=== PATIENT | female | born 2000 | race Caucasian/White ===

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

== ENCOUNTER 2018-01-20 18:43 | Emergency (ER) | payer SELFPAY ==
[~2018-01-20] VITALS: Ht 167.6 cm; Wt 93.9 kg
[~2018-01-20 18:43] MED LIST changes: +HYDR-4226 PO; -HYDR-757 PO; +INSU100I10 SQ; +INSU100I14 SQ; +NAPR-915 PO; -NAPR500T3 PO
--- OUTSIDE RECORDS SUMMARY | 2018-01-20 18:48 | XMS REPORT ---
Author Author LEANDRA CALVIN Organization [facility] Address [address] [place] [address] Care Team Providers Care Secondary Teacher Name Role Phone CALVIN MOBLEY Unavailable PROBLEMS Type Condition ICD9-CM Code [id number] Code Onset Dates Condition Status SNOMED Code Problem Attention deficit disorder F90.0 Active 978045801 Problem Mood disorder F39 Active 26546966 Problem Depressive disorder, not elsewhere classified F32.9 Active 01429841 Problem Dysthymic disorder F34.1 Active 20833407 Problem Anxiety disorder, unspecified F41.9 Active 522024315 Problem Social phobia F40.10 Active 97561152 Problem Other and unspecified noninfectious gastroenteritis and colitis 558.9 Active 60139126 ALLERGIES No Information ENCOUNTERS Encounter Location Date Diagnosis [facility] [address] [address] Oct, [facility] [address] [address] Oct, [facility] [address] [address] 20 Oct, 2017 Cystitis N30.90 and Dysuria R30.0 [facility] [id number] [place] [address] [id number] 15 Oct, 2017 Dental examination Z01.20 [facility] [address] [address] 15 May, 2017 Fever, unspecified fever cause R50.9 and Acute nasopharyngitis J00 [facility] [address] [address] Dec, Mood disorder F39 [facility] [address] [address] Dec, Mood disorder F39 [facility] [address] [address] Jul, Depressive disorder, not elsewhere classified F32.9 and Social phobia F40.10 [facility] [address] [id number] [id number] Jul, Encounter for dental examination Z01.20 [facility] [id number] [place] [address] [id number]- [address] Jan, Depressive disorder, not elsewhere classified 311 ; Anxiety state, unspecified 300.00 and Attention deficit disorder without mention of hyperactivity 314.00 [facility] [id number] [place] [address]019- [address] Jan, Depressive disorder, not elsewhere classified 311 ; Anxiety state, unspecified 300.00 and Attention deficit disorder without mention of hyperactivity 314.00 [facility] [address] [place] [address] Oct, Depressive disorder, not elsewhere classified 311 [facility] [id number] [place] [address] [phone]- 2[address] September, Depressive disorder, not elsewhere classified 311 [facility] [id number] [place] [address] 730583- [address] Aug, [facility] [address] [address] Aug, [facility] [address] [place] [address] [id number]- 1105 Aug, [facility] [address] [place] [address] [id number]- 7660 Jul, [facility] [id number] [place] [address] 816980- 8391 Jul, [facility] [address] [address] Jun, [facility] [address] [id number] [place] [address] Jun, [facility] [address] [id number] [place] [address] Apr, [facility] [place] [facility] [address] [id number] [place] [address]- [address] Apr, [facility] [address] [id number] [place] [address]- [address] Mar, [facility] [place] [facility] [address] [id number] [place] [address] Mar, [facility] [address] [id number] [place] [address] Feb, [facility] [place] [facility] [address] [id number] [place] [address]- [address] Feb, [facility] [place] [facility] [address] [id number] [place] [address] Dec, [facility] [place] [facility] [address] [id number] [place] [address] 8[address] Dec, [facility] [place] [facility] [address] [id number] [place] [address]- 1337 Nov, [facility] [address] [id number] [place] [address]- 378[address] Nov, [facility] [place] [facility] [address] [id number] [place] [address]- 1428 September, [facility] [place] [facility] [address] [id number] [place] [address] 76[address] September, [facility] [place] [facility] [address] [id number] [place] [address]- 9[address] Aug, [facility] [place] [facility] [address] [id number] [place] [address]- 7[address] Apr, [facility] [place] [facility] [address] [id number] [place] [address] Apr, [facility] [address] [facility] [id number] [place] [address] Apr, IMMUNIZATIONS No Known Immunizations SOCIAL HISTORY Never Assessed REASON FOR VISIT PLAN OF CARE VITAL SIGNS MEDICATIONS Unknown Medications RESULTS No Results PROCEDURES No Known procedures INSTRUCTIONS MEDICATIONS ADMINISTERED No Known Medications MEDICAL (GENERAL) HISTORY Type Description Date Medical History Diabetes-II Surgical History Tonsils removed 2002 Surgical History Blood infection 2011
--- OUTSIDE RECORDS SUMMARY | 2018-01-20 18:48 | XMS REPORT ---
Author Author GARRETT GARCIA [facility] Address Unknown Care Team Providers Care Shoe Clerk Name Role Phone GARRETT GARCIA Unavailable PROBLEMS Type Condition ICD9-CM Code YKY44-AN Code Onset Dates Condition Status SNOMED Code Problem Attention deficit disorder F90.0 Active 207540988 Problem Mood disorder F39 Active 34449430 Problem Depressive disorder, not elsewhere classified F32.9 Active 18723968 Problem Dysthymic disorder F34.1 Active 93440672 Problem Anxiety disorder, unspecified F41.9 Active 269583109 Problem Social phobia F40.10 Active 69684115 Problem Other and unspecified noninfectious gastroenteritis and colitis 558.9 Active 91885061 ALLERGIES Substance Reaction Event Type Date Status Rocephin Unknown Drug Allergy Oct, Active ENCOUNTERS Encounter Location Date Diagnosis [facility] [id number] [place] [address] Oct, [facility] [address] [address] Oct, [facility] [id number] [place] [address] Oct, Cystitis N30.90 and Dysuria R30.0 [facility] [id number] [place] [address] [id number] Oct, Dental examination Z01.20 [facility] [id number] [place] [address] May, Fever, unspecified fever cause R50.9 and Acute nasopharyngitis J00 [facility] [id number] [place] [address] Dec, Mood disorder F39 [facility] [address] [id number]- [address] Dec, Mood disorder F39 [facility] [address] [address] Jul, Depressive disorder, not elsewhere classified F32.9 and Social phobia F40.10 [facility] [id number] [id number] Jul, Encounter for dental examination Z01.20 [facility] [address] [place] [address] 219248- [address] Jan, Depressive disorder, not elsewhere classified 311 ; Anxiety state, unspecified 300.00 and Attention deficit disorder without mention of hyperactivity 314.00 [facility] [address] [place] [address] 845441- 73[address] Jan, Depressive disorder, not elsewhere classified 311 ; Anxiety state, unspecified 300.00 and Attention deficit disorder without mention of hyperactivity 314.00 [facility] [address] [place] [address] Oct, Depressive disorder, not elsewhere classified 311 [facility] [address] [place] [address] September, Depressive disorder, not elsewhere classified 311 [facility] [address] [address] Aug, [facility] [address] [address] Aug, [facility] [address] [address] Aug, [facility] [address] [address] Jul, [facility] [address] [place] [address] 501804- 2746 Jul, [facility] [address] [address] Jun, [facility] [address] [facility] [id number] [place] [address]- 4[address] Jun, [facility] [place] [facility] [address] [id number] [place] [address]- 4237 Apr, [facility] [place] [facility] [address] [id number] [place] [address]- 6[address] Apr, [facility] [place] [facility] [address] [id number] [place] [address]- 2507 Mar, [facility] [place] [facility] [address] [id number] [place] [address]- 9330 Mar, [facility] [place] [facility] [address] [id number] [place] [address]- 6527 Feb, [facility] [place] [facility] [address] [id number] [place] [address]- 9572 Feb, [facility] [place] [facility] [address] [id number] [place] [address]- 3195 Dec, [facility] [place] [facility] [address] [id number] [place] [address]- [address] Dec, [facility] [place] [facility] [address] [id number] [place] [address]- 3924 Nov, [facility] [place] [facility] [address] [id number] [place] [address] Nov, [facility] [place] [facility] [address] [id number] [place] [address]- 2440 September, [facility] [place] [facility] [address] [id number] [place] [address]- 7984 September, [facility] [place] [facility] [address] [id number] [place] [address]- 53[address] Aug, [facility] [place] [facility] [address] [id number] [place] [address]- 2546 Apr, [facility] [place] [facility] [address] [id number] [place] [address]- 2716 Apr, [facility] [address] [facility] [id number] [place] [address]- 0[address] Apr, IMMUNIZATIONS No Known Immunizations SOCIAL HISTORY Never Assessed REASON FOR VISIT jemma PLAN OF CARE Activity Details Follow Up prn Reason:KRISTIN wit hyg VITAL SIGNS Blood pressure systolic 122 mmHg 2017-11-02 Blood pressure diastolic 70 mmHg 2017-11-02 MEDICATIONS Medication Instructions Dosage Frequency Start Date End Date Duration Status Clindamycin HCl 150 MG Orally every 6 hrs 2 capsules 6h 7 days Active NovoLog Not-Taking Invokana by oral route Jul, Not-Taking Lantus Not-Taking Zofran ODT 8 mg 1 tablet by Oral route every 8 hours PRN nausea or vomiting Jul, Not-Taking Bentyl 10 mg 1 Capsule by Oral route 2 times per day PRN for tomach cramping Jul, Not-Taking Kombiglyze XR by oral route Jul, Not-Taking RESULTS No Results PROCEDURES Procedure Date Ordered Result Body Site LTD ORAL EVALUATION - PROBLEM FOCUS November 02, 2017 INTRAORL-PERIAPICAL 1 FILM [id number] November 02, 2017 BITEWING - SINGLE FILM November 02, 2017 INSTRUCTIONS MEDICATIONS ADMINISTERED No Known Medications MEDICAL (GENERAL) HISTORY Type Description Date Medical History Diabetes-II Surgical History Tonsils removed 2002 Surgical History Blood infection 2010
--- OUTSIDE RECORDS SUMMARY | 2018-01-20 18:49 | XMS REPORT ---
Author Author LEANDRA CALVIN Organization [facility] Address [address] [place] [address] Care Team Providers Care Peoplesoft Functional Analyst Name Role Phone CALVIN MOBLEY Unavailable PROBLEMS Type Condition ICD9-CM Code MEC60-GF Code Onset Dates Condition Status SNOMED Code Problem Attention deficit disorder F90.0 Active 793448414 Problem Mood disorder F39 Active 82370265 Problem Depressive disorder, not elsewhere classified F32.9 Active 61317792 Problem Dysthymic disorder F34.1 Active 70309142 Problem Anxiety disorder, unspecified F41.9 Active 107814292 Problem Social phobia F40.10 Active 56104182 Problem Other and unspecified noninfectious gastroenteritis and colitis 558.9 Active 41788444 ALLERGIES No Information ENCOUNTERS Encounter Location Date Diagnosis [facility] [address] [address] Oct, [facility] [address] [address] Oct, [facility] [address] [address] 20 Oct, 2017 Cystitis N30.90 and Dysuria R30.0 [facility] [id number] [place] [address] [id number] 15 Oct, 2017 Dental examination Z01.20 [facility] [address] [address] 15 May, 2017 Fever, unspecified fever cause R50.9 and Acute nasopharyngitis J00 [facility] [address] [address] Dec, Mood disorder F39 [facility] [address] [address] Dec, Mood disorder F39 [facility] [address] [address] Jul, Depressive disorder, not elsewhere classified F32.9 and Social phobia F40.10 [facility] [id number] [id number] Jul, Encounter for dental examination Z01.20 [facility] [id number] [place] [address] [id number]- [address] Jan, Depressive disorder, not elsewhere classified 311 ; Anxiety state, unspecified 300.00 and Attention deficit disorder without mention of hyperactivity 314.00 [facility] [id number] [place] [address] 822119- 8453 Jan, Depressive disorder, not elsewhere classified 311 ; Anxiety state, unspecified 300.00 and Attention deficit disorder without mention of hyperactivity 314.00 [facility] [address] [place] [address]- [address] Oct, Depressive disorder, not elsewhere classified 311 [facility] [id number] [place] [address] [id number]- 6322 September, Depressive disorder, not elsewhere classified 311 [facility] [id number] [place] [address] 439193- 97[address] Aug, [facility] [address] [address] Aug, [facility] [address] [place] [address] [id number]- 6614 Aug, [facility] [address] [place] [address] [id number]- 5503 Jul, [facility] [id number] [place] [address] 298595- 5063 Jul, [facility] [address] [address] Jun, [facility] [address] [id number] [place] [address]- [address] Jun, [facility] [address] [id number] [place] [address]- 2230 Apr, [facility] [place] [facility] [address] [id number] [place] [address]- 6997 Apr, [facility] [address] [id number] [place] [address]- 0421 Mar, [facility] [place] [facility] [address] [id number] [place] [address]- 8299 Mar, [facility] [address] [id number] [place] [address]- 0184 Feb, [facility] [place] [facility] [address] [id number] [place] [address] Feb, [facility] [place] [facility] [address] [id number] [place] [address] Dec, [facility] [place] [facility] [address] [id number] [place] [address] Dec, [facility] [place] [facility] [address] [id number] [place] [address] Nov, [facility] [address] [id number] [place] [address] Nov, [facility] [place] [facility] [address] [id number] [place] [address] September, [facility] [place] [facility] [address] [id number] [place] [address] September, [facility] [place] [facility] [address] [id number] [place] [address] Aug, [facility] [place] [facility] [address] [id number] [place] [address] Apr, [facility] [place] [facility] [address] [id number] [place] [address] Apr, [facility] [address] [facility] [id number] [place] [id number] Apr, IMMUNIZATIONS No Known Immunizations SOCIAL HISTORY Never Assessed REASON FOR VISIT Requests return call PLAN OF CARE VITAL SIGNS MEDICATIONS Unknown Medications RESULTS No Results PROCEDURES No Known procedures INSTRUCTIONS MEDICATIONS ADMINISTERED No Known Medications MEDICAL (GENERAL) HISTORY Type Description Date Medical History Diabetes-II Surgical History Tonsils removed 2002 Surgical History Blood infection 2010
--- OUTSIDE RECORDS SUMMARY | 2018-01-20 18:49 | XMS REPORT ---
Author Author [facility] Address [address] [place] [address] Care Team Providers Care Medical Supply Technician Name Role Phone BRUNOLISA Unavailable PROBLEMS Type Condition ICD9-CM Code RXV44-ED Code Onset Dates Condition Status SNOMED Code Problem Attention deficit disorder F90.0 Active 684214763 Problem Mood disorder F39 Active 49822937 Problem Depressive disorder, not elsewhere classified F32.9 Active 73067503 Problem Dysthymic disorder F34.1 Active 12861759 Problem Anxiety disorder, unspecified F41.9 Active 024626167 Problem Social phobia F40.10 Active 18196351 Problem Other and unspecified noninfectious gastroenteritis and colitis 558.9 Active 47971549 ALLERGIES Substance Reaction Event Type Date Status Rocephin Unknown Drug Allergy May, Active ENCOUNTERS Encounter Location Date Diagnosis [facility] [id number] [place] [address] 14524- 3427 Oct, Cystitis N30.90 and Dysuria R30.0 [facility] [id number] [place] [address] [id number] Oct, Dental examination Z01.20 [facility] [id number] [place] [address] 83971 -9955 May, Fever, unspecified fever cause R50.9 and Acute nasopharyngitis J00 [facility] [id number] [place] [address] 02171- 0936 Dec, Mood disorder F39 [facility] [id number] [place] [address] 04108- 3000 Dec, Mood disorder F39 [facility] [id number] [place] [address] 32372- 0792 Jul, Depressive disorder, not elsewhere classified F32.9 and Social phobia F40.10 [facility] [id number] [id number] Jul, Encounter for dental examination Z01.20 [facility] [id number] [place] [address] [id number]- 5353 29 Jan, 2015 Depressive disorder, not elsewhere classified 311 ; Anxiety state, unspecified 300.00 and Attention deficit disorder without mention of hyperactivity 314.00 [facility] [id number] [place] [address] 268591- 8897 Jan, Depressive disorder, not elsewhere classified 311 ; Anxiety state, unspecified 300.00 and Attention deficit disorder without mention of hyperactivity 314.00 [facility] [id number] [place] [address] [id number]- 4721 Oct, Depressive disorder, not elsewhere classified 311 [facility] [id number] [place] [address] 11522- 2117 September, Depressive disorder, not elsewhere classified 311 [facility] [id number] [place] [address] 59725- 2462 30 Aug, 2014 [facility] [id number] [place] [address] 71976- 4097 Aug, [facility] [id number] [place] [address] 06156- 0358 Aug, [facility] [id number] [place] [address] 26169- 8026 Jul, [facility] [id number] [place] [address] 25902- 2594 Jul, [facility] [id number] [place] [address] 195120- 4391 Jun, [facility] [id number] [place] [address] 929462- 9246 Jun, [facility] [id number] [place] [address] 982432- 4308 Apr, [facility] [address] [facility] [id number] [place] [address] Apr, [facility] [address] [id number] [place] 14[address] Mar, [facility] [address] [facility] [id number] [place] [address]- 9260 Mar, [facility] [address] [facility] [id number] [place] [address]- 1110 Feb, [facility] [address] [facility] [id number] [place] 7167 Feb, [facility] [address] [facility] [id number] [place] [address] Dec, [facility] [address] [facility] [id number] [place] 1385 Dec, [facility] [address] [facility] [id number], [place] [address] 6616 Nov, [facility] [address] [facility] [id number] [place] [address]- 1849 Nov, [facility] [address] [facility] [id number], [place] [address]- 3538 September, [facility] [address] [facility] [id number], [place] [address] 7286 September, [facility] [address] [facility] [id number], [place] [address]- 4155 Aug, [facility] [address] [facility] [id number], [place] [address]- 3231 Apr, [facility] [address] [facility] [id number], [place] [address]- 1646 Apr, [facility] [address] [facility] [id number], [place] [address] 6581 Apr, IMMUNIZATIONS No Known Immunizations SOCIAL HISTORY Never Assessed REASON FOR VISIT flu symptoms Pt reports cough, fever and body aches for 2 days UMBERTO Coates, Pt was assessed by Med student and left the buliding before could be assessed by walk in provider PLAN OF CARE Activity Details Follow Up prn Reason: VITAL SIGNS Height 64 in 2017-06-04 Weight 204.6 lbs 2017-06-04 Temperature 97.1 degrees Fahrenheit 2017-06-04 Heart Rate 100 bpm 2017-06-04 Respiratory Rate 22 2017-06-04 BMI 35.12 kg/m2 2017-06-04 Blood pressure systolic 112 mmHg 2017-06-04 Blood pressure diastolic 68 mmHg 2017-06-04 MEDICATIONS Medication Instructions Dosage Frequency Start Date End Date Duration Status Zofran ODT 8 mg 1 tablet by Oral route every 8 hours PRN nausea or vomiting Jul, Not-Taking Bentyl 10 mg 1 Capsule by Oral route 2 times per day PRN for tomach cramping Jul, Not-Taking Kombiglyze XR by oral route Jul, Not-Taking Invokana by oral route Jul, Not-Taking NovoLog Not-Taking Lantus Not-Taking RESULTS Name Result Date Reference Range INFLUENZA A & B (IN HOUSE) 2017-06-04 INFLUENZA A negative INFLUENZA B negative Control + Lot # [id number] Exp date [id number] PROCEDURES Procedure Date Ordered Result Body Site INFLUENZA ASSAY W/OPTIC Jun 04, 2017 INSTRUCTIONS MEDICATIONS ADMINISTERED No Known Medications MEDICAL (GENERAL) HISTORY Type Description Date Medical History Diabetes-II Surgical History Tonsils removed 2002 Surgical History Blood infection 2010
--- OUTSIDE RECORDS SUMMARY | 2018-01-20 18:49 | XMS REPORT ---
Author Author RICHARD MASON [facility] Address [address] [place] [address] Care Team Providers Care Cardiology Manager Name Role Phone RICHARD MASON Unavailable PROBLEMS Type Condition ICD9-CM Code [id number] Code Onset Dates Condition Status SNOMED Code Problem Attention deficit disorder F90.0 Active 197306140 Problem Mood disorder F39 Active 03292448 Problem Depressive disorder, not elsewhere classified F32.9 Active 62561309 Problem Dysthymic disorder F34.1 Active 39827691 Problem Anxiety disorder, unspecified F41.9 Active 434295682 Problem Social phobia F40.10 Active 02522187 Problem Other and unspecified noninfectious gastroenteritis and colitis 558.9 Active 30672134 ALLERGIES No Information ENCOUNTERS Encounter Location Date Diagnosis [facility] [id number] [place] [address] 00853 -9750 May, Fever, unspecified fever cause R50.9 and Acute nasopharyngitis J00 [facility] [id number] [place] [address] 49988- 2409 Dec, Mood disorder F39 [facility] [id number] [place] [address] 63257- 8474 Dec, Mood disorder F39 [facility] [id number] [place] [address] 42854- 8285 Jul, Depressive disorder, not elsewhere classified F32.9 and Social phobia F40.10 [facility] [address] [place] [address] [id number] Jul, Encounter for dental examination Z01.20 [facility] [id number] [place] [address] 29143- 4672 Jan, Depressive disorder, not elsewhere classified 311 ; Anxiety state, unspecified 300.00 and Attention deficit disorder without mention of hyperactivity 314.00 [facility] [address], [place] [address]- 5344 Jan, Depressive disorder, not elsewhere classified 311 ; Anxiety state, unspecified 300.00 and Attention deficit disorder without mention of hyperactivity 314.00 [facility] [address] Oct, Depressive disorder, not elsewhere classified 311 [facility] [address] [facility] [id number] [address]81 September, Depressive disorder, not elsewhere classified [address] [facility] [id number] [place] [address] 666846- 7242 Aug, [facility] [address] [address] 0978 Aug, [facility] [id number] [place] [address] 59205- 0299 Aug, [facility] [address]65[address] [address] 6447 Jul, [facility] [address]65[place] [address] 3316 Jul, [facility] [address] 8070 Jun, [facility] [address]65[place] Jun, [facility] [address]65[place] 1231 Apr, [facility] [address]65[place] 0967 Apr, [facility] [address] 3761 Mar, [facility] [address]65[place] 2683 Mar, [facility] [address] [facility] [id number] [address]- 2546 Feb, [facility] [address] [facility] [id number] [address]- 2546 Feb, [facility] [address] [facility] [id number] [address]- 2546 Dec, [facility] [address] [id number] [address]- 2546 Dec, [facility] [address] [facility] [id number] [address]- 7888 Nov, [facility] [address] [facility] [id number], [place] [address]- 4476 Nov, [facility] [address] [facility] [id number] [address]- 9566 September, [facility] [address] [facility] [id number] [address]- 1616 September, [facility] [address] [facility] [id number] [address]- 3106 Aug, [facility] [address] [facility] [id number] [address]- 2546 Apr, [facility] [address] [id number], [place] [address]- 2546 Apr, [facility] [address] [id number], [place] [address]- 2546 Apr, IMMUNIZATIONS No Known Immunizations SOCIAL HISTORY Never Assessed REASON FOR VISIT BH f/u PLAN OF CARE Activity Details Follow Up Next available Reason: F/U VITAL SIGNS MEDICATIONS No Known Medications RESULTS No Results PROCEDURES Procedure Date Ordered Result Body Site Psychotherapy, patient &/family, 45 minutes, established patient Jan 18, 2017 INSTRUCTIONS MEDICATIONS ADMINISTERED No Known Medications MEDICAL (GENERAL) HISTORY Type Description Date Medical History Diabetes-II Surgical History Tonsils removed 2002 Surgical History Blood infection 2010
--- OUTSIDE RECORDS SUMMARY | 2018-01-20 18:49 | XMS REPORT ---
Author Author DESTINEE CHRISTIAN Organization [facility] [place] [facility] Address [address] [place] [address] Care Team Providers Care Electrician Wiring Name Role Phone DESTINEE CHRISTIAN Unavailable PROBLEMS Type Condition ICD9-CM Code LKJ23-DF Code Onset Dates Condition Status SNOMED Code Problem Attention deficit disorder F90.0 Active 322639483 Problem Mood disorder F39 Active 78782563 Problem Depressive disorder, not elsewhere classified F32.9 Active 70315972 Problem Dysthymic disorder F34.1 Active 40203498 Problem Anxiety disorder, unspecified F41.9 Active 154109693 Problem Social phobia F40.10 Active 92062252 Problem Other and unspecified noninfectious gastroenteritis and colitis 558.9 Active 21958572 ALLERGIES No Information SOCIAL HISTORY Never Assessed PLAN OF CARE Activity Details Follow Up next available Reason:anger VITAL SIGNS MEDICATIONS Unknown Medications RESULTS No Results PROCEDURES Procedure Date Ordered Result Body Site Psychotherapy, patient &/family, 30 minutes, established patient August 09, 2016 IMMUNIZATIONS No Known Immunizations MEDICAL (GENERAL) HISTORY Type Description Date Medical History Diabetes-II Surgical History Tonsils removed 2002 Surgical History Blood infection 2010
--- OUTSIDE RECORDS SUMMARY | 2018-01-20 18:49 | XMS REPORT ---
Author Author LEANDRA CALVIN [facility] Address [address] [place] [address] Care Team Providers Care Form Building Supervisor Name Role Phone CALVIN MOBLEY Unavailable PROBLEMS Type Condition ICD9-CM Code PVJ82-BP Code Onset Dates Condition Status SNOMED Code Problem Attention deficit disorder F90.0 Active 511122192 Problem Mood disorder F39 Active 80125382 Problem Depressive disorder, not elsewhere classified F32.9 Active 45418767 Problem Dysthymic disorder F34.1 Active 02219792 Problem Anxiety disorder, unspecified F41.9 Active 179161608 Problem Social phobia F40.10 Active 14321046 Problem Other and unspecified noninfectious gastroenteritis and colitis 558.9 Active 85570110 ALLERGIES Substance Reaction Event Type Date Status Rocephin Unknown Drug Allergy Oct, Active ENCOUNTERS Encounter Location Date Diagnosis [facility] [address] [address] Oct, [facility] [address] [address]- [address] Oct, [facility] [id number] [place] [address] 35109- 6014 Oct, Cystitis N30.90 and Dysuria R30.0 [facility] [id number] [place] [address] [id number] Oct, Dental examination Z01.20 [facility] [address] [address] May, Fever, unspecified fever cause R50.9 and Acute nasopharyngitis J00 [facility] [address] 66762- 4755 Dec, Mood disorder F39 [facility] [address]65[address], [place] [address]- 0679 Dec, Mood disorder F39 [facility] [id number] [place] [address] 94819- 3418 Jul, Depressive disorder, not elsewhere classified F32.9 and Social phobia F40.10 [facility] [address] [id number] Jul, Encounter for dental examination Z01.20 [facility] [id number] [place] [address] 92144- 9554 Jan, Depressive disorder, not elsewhere classified 311 ; Anxiety state, unspecified 300.00 and Attention deficit disorder without mention of hyperactivity 314.00 [facility] [id number] [place] [address] 80468- 6297 Jan, Depressive disorder, not elsewhere classified 311 ; Anxiety state, unspecified 300.00 and Attention deficit disorder without mention of hyperactivity 314.00 [facility] [id number] [place] [address] 66624- 9623 Oct, Depressive disorder, not elsewhere classified 311 [facility] [id number] [place] [address] 93877- 4479 September, Depressive disorder, not elsewhere classified 311 [facility] [id number] [place] [address] 66956- 2906 30 Aug, 2014 [facility] [id number] [place] [address] 80155- 1685 Aug, [facility] [address] [place] [address] 37706- 2785 Aug, [facility] [id number] [place] [address] 12501- 4056 Jul, [facility] [id number] [place] [address] 90608- 9482 Jul, [facility] [id number] [place] [address] 04282- 5783 Jun, [facility] [place] [facility] [address] [id number] [place] [address]- 5717 Jun, [facility] [place] [facility] [address] [id number] [place] [address]- 1786 Apr, [facility] [place] [facility] [address] [id number] [place] 3794 Apr, [facility] [place] [facility] [address] [id number] [place] [address]- 4967 Mar, [facility] [place] [facility] [address] [id number] [place] [address]- 1254 Mar, [facility] [place] [facility] [address] [id number] [place] [address]- 1728 Feb, [facility] [place] [facility] [address] [id number] [place] [address]- 5894 Feb, [facility] [place] [facility] [address] [id number] [place] [address]- 9287 Dec, [facility] [place] [facility] [address] [id number] [place] [address]- 3322 Dec, [facility] [place] [facility] [address] [id number] [place] [address]- 0974 Nov, [facility] [place] [facility] [address] [id number] [place] [address]- 2470 Nov, [facility] [place] [facility] [address] [id number] [address]- 1377 September, [facility] [place] [facility] [address] [id number] [place] [address]- 9847 September, [facility] [place] [facility] [address] [id number] [place] [address]- 7519 Aug, [facility] [place] [facility] [address] [id number] [place] [address]- 8387 Apr, [facility] [place] [facility] [address] [facility] [id number] [place] [address]- 6746 Apr, [facility] [address] [facility] [id number] [place] [address]- 9769 Apr, IMMUNIZATIONS No Known Immunizations SOCIAL HISTORY Never Assessed REASON FOR VISIT kidney infection, possible--tcuppettRn, Dysuria and decreased urination for past 3 days PLAN OF CARE Activity Details Follow Up 2 Weeks if not better Reason:UTI VITAL SIGNS Height 64 in 2017-11-07 Weight 200.4 lbs 2017-11-07 Temperature 98.1 degrees Fahrenheit 2017-11-07 Heart Rate 90 bpm 2017-11-07 Respiratory Rate 18 2017-11-07 BMI 34.39 kg/m2 2017-11-07 Blood pressure systolic 122 mmHg 2017-11-07 Blood pressure diastolic 70 mmHg 2017-11-07 MEDICATIONS Medication Instructions Dosage Frequency Start Date End Date Duration Status Pyridium 200 mg Orally Three times a day 1 tablet after meals 8h Oct, Oct, 03 days Active Macrobid 100 mg Orally every 12 hrs 1 capsule with food 12h Oct, Oct, 7 day(s) Active RESULTS No Results PROCEDURES Procedure Date Ordered Result Body Site URINALYSIS, AUTO, W/O SCOPE November 07, 2017 URINE CULTURE/COLONY COUNT November 07, 2017 INSTRUCTIONS MEDICATIONS ADMINISTERED No Known Medications MEDICAL (GENERAL) HISTORY Type Description Date Medical History Diabetes-II Surgical History Tonsils removed 2002 Surgical History Blood infection 2010
--- OUTSIDE RECORDS SUMMARY | 2018-01-20 18:50 | XMS REPORT | Continuity of Care Document ---
Author Author [facility] Address Unknown Phone Unavailable Allergies Active Description Code Type Severity Reaction Onset Reported/Identified Relationship to Patient Clinical Status Yes Rocephin Drug Allergy 06/11/2008 Yes Rocephin Drug Allergy N/A N/A 06/11/2008 Yes ceftriaxone [id number] Drug Allergy Mild HIVES 01/17/2010 Medications There is no data. Problems Date Dx Coded Attending Type Code Diagnosis Diagnosed By 05/06/2008 LISA BRUNO DO K 465.9 UPPER RESPIRATORY INFECTION 05/06/2008 TAMMY JOSE LCPC B 465.9 UPPER RESPIRATORY INFECTION 05/06/2008 BING BEAR PSYD L 465.9 UPPER RESPIRATORY INFECTION 05/06/2008 BING BEAR PSYD L 465.9 UPPER RESPIRATORY INFECTION 05/06/2008 [facility], NERY R 465.9 UPPER RESPIRATORY INFECTION 05/06/2008 [facility], NERY R 465.9 UPPER RESPIRATORY INFECTION 05/06/2008 ANA ROSA BENNETT APRN 465.9 UPPER RESPIRATORY INFECTION 05/06/2008 [facility], NERY R 465.9 UPPER RESPIRATORY INFECTION 06/11/2008 AZAEL BRUNO DOA K 278.00 OBESITY 06/11/2008 LISA BRUNO DO K 381.81 EUSTACHIAN TUBE DYSFUNCTION 06/11/2008 AZAEL BRUNO DOA K 788.1 pain during urination (dysuria) 06/11/2008 REBECA BUCK TAMMY B 278.00 OBESITY 06/11/2008 REBECA BUCK TAMMY B 381.81 EUSTACHIAN TUBE DYSFUNCTION 06/11/2008 REBECA [...] KING, ANA ROSA A 278.00 OBESITY 06/11/2008 SABRINA GENERAL DENTIST/OWNER, ANA ROSA A 381.81 EUSTACHIAN TUBE DYSFUNCTION 06/11/2008 RAJARNIEE GENERAL DENTIST/OWNER, ANA ROSA A 788.1 pain during urination [...] BEAR PSYD 311 DEPRESSIVE DISORDER NOS 10/10/2013 [facility], NERY R 311 DEPRESSIVE DISORDER NOS 10/10/2013 [facility], NERY R 311 DEPRESSIVE DISORDER NOS 10/10/2013 AVI BENNETT APRNYL A 311 DEPRESSIVE DISORDER NOS 10/10/2013 [facility], NERY R 311 DEPRESSIVE DISORDER NOS 07/31/2014 AVI BENNETT APRNYL A 558.9 GASTROENTERITIS NONINFECTIOUS 07/31/2014 [facility], NERY R 558.9 GASTROENTERITIS NONINFECTIOUS 07/29/2015 Ot 789.00 07/29/2015 Ot 789.00 08/10/2015 KRIS YEE GENERAL DENTIST/OWNER Ot M25.561 08/10/2015 KRIS YEE APRN Ot M25.562 10/19/2015 TIERRA COOK DO S Ot R10.32 LEFT LOWER QUADRANT PAIN 10/20/2015 TIERRA COOK DO S Ot R10.32 LEFT LOWER QUADRANT PAIN 10/24/2015 KIERSTEN MAR DO Ot E11.9 TYPE 2 DIABETES MELLITUS WITHOUT COMPLIC 10/24/2015 KIERSTEN MAR DO Ot E66.9 OBESITY, UNSPECIFIED 10/24/2015 KIERSTEN MAR DO Ot F17.210 NICOTINE DEPENDENCE, CIGARETTES, UNCOMPL 10/24/2015 KIERSTEN MAR DO Ot L02.211 CUTANEOUS ABSCESS OF ABDOMINAL WALL 10/24/2015 KIERSTEN MAR DO Ot Z79.4 ALF (CURRENT) USE OF INSULIN 10/24/2015 KIERSTEN MAR DO Ot Z86.14 PERSONAL HISTORY OF METHICILLIN RESIS ST 10/26/2015 Ot R10.2 PELVIC AND PERINEAL PAIN 10/27/2015 KIERSTEN MAR DO Ot E11.9 TYPE 2 DIABETES MELLITUS WITHOUT COMPLIC 10/27/2015 KIERSTEN MAR DO Ot E66.9 OBESITY, UNSPECIFIED 10/27/2015 KIERSTEN MAR DO Ot F17.210 NICOTINE DEPENDENCE, CIGARETTES, UNCOMPL 10/27/2015 KIERSTEN MAR DO Ot L02.211 CUTANEOUS ABSCESS OF ABDOMINAL WALL 10/27/2015 KIERSTEN MAR DO Ot 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 10/27/2015 KIERSTEN MAR DO Ot Z86.14 PERSONAL HISTORY OF METHICILLIN RESIS ST 10/29/2015 GOPI COOK DOLINE S Ot R10.32 LEFT LOWER QUADRANT PAIN 07/25/2016 Ot 789.00 ABDOMINAL PAIN, UNSPECIFIED SITE 07/25/2016 KRIS YEE GENERAL DENTIST/OWNER Ot M25.561 PAIN IN RIGHT KNEE 07/25/2016 KRIS YEE GENERAL DENTIST/OWNER Ot M25.562 PAIN IN LEFT KNEE 07/25/2016 Ot R10.2 PELVIC AND PERINEAL PAIN 07/25/2016 TIERRA COOK DO S Ot R10.32 LEFT LOWER QUADRANT PAIN 07/25/2016 TYLER YA APRN Ot F17.210 NICOTINE DEPENDENCE, CIGARETTES, UNCOMPL 07/25/2016 TYLER YA APRN Ot J02.9 ACUTE PHARYNGITIS, UNSPECIFIED 07/25/2016 TYLER YA APRN Ot J06.9 ACUTE UPPER RESPIRATORY INFECTION, UNSPE 07/26/2016 TYLER YA APRN Ot F17.210 NICOTINE DEPENDENCE, CIGARETTES, UNCOMPL 07/26/2016 TYLER YA APRN Ot J02.9 ACUTE PHARYNGITIS, UNSPECIFIED 07/26/2016 TYLER YA APRN Ot J06.9 ACUTE UPPER RESPIRATORY INFECTION, UNSPE 08/02/2016 Ot 789.00 ABDOMINAL PAIN, UNSPECIFIED SITE 08/02/2016 KRIS YEE GENERAL DENTIST/OWNER Ot M25.561 PAIN IN RIGHT KNEE 08/02/2016 KRIS YEE GENERAL DENTIST/OWNER Ot M25.562 PAIN IN LEFT KNEE 08/02/2016 Ot R10.2 PELVIC AND PERINEAL PAIN 08/02/2016 TIERRA COOK DO S Ot R10.32 LEFT LOWER QUADRANT PAIN 08/18/2016 TYLER YA APRN Ot F41.9 ANXIETY DISORDER, UNSPECIFIED 08/18/2016 TYLER YA GENERAL DENTIST/OWNER Ot L02.215 CUTANEOUS ABSCESS OF PERINEUM 08/21/2016 TYLER YA GENERAL DENTIST/OWNER Ot F41.9 ANXIETY DISORDER, UNSPECIFIED 08/21/2016 TYLER YA GENERAL DENTIST/OWNER Ot L02.215 CUTANEOUS ABSCESS OF PERINEUM 08/23/2016 TYLER YA GENERAL DENTIST/OWNER Ot L02.215 CUTANEOUS ABSCESS OF PERINEUM 08/23/2016 TYLER YA GENERAL DENTIST/OWNER Ot R00.0 TACHYCARDIA, UNSPECIFIED 08/24/2016 TYELR YA GENERAL DENTIST/OWNER Ot F41.9 ANXIETY DISORDER, UNSPECIFIED 08/24/2016 TYLER YA GENERAL DENTIST/OWNER Ot L02.215 CUTANEOUS ABSCESS OF PERINEUM 08/30/2016 DALLIN MCNAIR MD Ot M25.561 PAIN IN RIGHT KNEE 09/07/2016 DALLIN MCNAIR MD Ot M23.8X1 OTHER INTERNAL DERANGEMENTS OF RIGHT KNE 09/07/2016 DALLIN MCNAIR MD Ot Z01.818 ENCOUNTER FOR OTHER PREPROCEDURAL EXAMIN 09/07/2016 DALLIN MCNAIR MD Ot Z11.2 ENCOUNTER FOR SCREENING FOR OTHER BACTER 11/01/2016 Ot 789.00 ABDOMINAL PAIN, UNSPECIFIED SITE 11/01/2016 KRIS YEE GENERAL DENTIST/OWNER Ot M25.561 PAIN IN RIGHT KNEE 11/01/2016 KRIS YEE GENERAL DENTIST/OWNER Ot M25.562 PAIN IN LEFT KNEE 11/01/2016 Ot R10.2 PELVIC AND PERINEAL PAIN 11/01/2016 TIERRA COOK DO Ot R10.32 LEFT LOWER QUADRANT PAIN 11/01/2016 DALLIN MCNAIR MD Ot M25.561 PAIN IN RIGHT KNEE 11/18/2016 TYLER YA GENERAL DENTIST/OWNER Ot F41.9 ANXIETY DISORDER, UNSPECIFIED 11/18/2016 TYLER YA GENERAL DENTIST/OWNER Ot L02.215 CUTANEOUS ABSCESS OF PERINEUM Procedures Code Description Performed By Performed On 86.04 OTHER SKIN SUBQ I D 05/24/2012 30346 PSYCH DIAGNOSTIC EVALUATION 10/10/2013 06911 PSYTX PT&/FAMILY 45 MINUTES 01/09/2014 69469 PSYTX PT&/FAMILY 30 MINUTES 02/26/2014 15638 PSYTX PT&/FAMILY 45 MINUTES 04/10/2014 15927 PSYTX PT&/FAMILY 45 MINUTES 05/01/2014 42375 PSYTX PT&/FAMILY 45 MINUTES 09/15/2014 Results Test Result Range Complete blood count (CBC) with automated white blood cell (WBC) differential - 07/25/16 14:40 Blood leukocytes automated count (number/volume) 6.3 10*3/uL 4.3-11.0 Blood erythrocytes automated count (number/volume) 4.91 10*6/uL 4.35-5.85 Venous blood hemoglobin measurement (mass/volume) 14.8 [...] Automated blood platelet mean volume measurement 9.6 [foz_us] 7.4-10.4 Automated blood neutrophils/100 leukocytes 64 % [...] Serum or plasma sodium measurement (moles/volume) 137 mmol/L 135-145 Serum or plasma potassium measurement (moles/volume) 3.9 mmol/L 3.6-5.0 Serum or plasma chloride measurement (moles/volume) 105 mmol/L 98-107 Carbon dioxide 20 mmol/L 21-32 Serum or plasma anion gap determination (moles/volume) 12 mmol/L 5-14 Serum or plasma urea nitrogen measurement (mass/volume) 8 mg/dL 7-18 Serum or plasma creatinine measurement (mass/volume) 0.81 mg/dL 0.60-1.30 Serum or plasma urea nitrogen/creatinine mass [...] INFLUENZA A AND B ANTIGENS BY IA [facility] Gram stain microscopy - 08/18/16 22:37 GRAM STAIN RESULT FEW GRAM NEGATIVE RODS NR Bacteria identification in wound by culture - 08/18/16 22:37 Bacteria identification in wound by culture [id number] NR FREE TEXT EXTERNAL (ANAEROBIC GRAM NEGATIVE WARNER) NR QUANTITY OF GROWTH Isolated NR FREE TEXT ENTRY 2 SENSITIVITY IS REQUESTED ON THIS ISOLATE NR Complete blood count (CBC) with automated white blood cell (WBC) differential - 08/18/16 22:50 Blood leukocytes automated count (number/volume) 11.4 10*3/uL 4.3-11.0 Blood erythrocytes automated count (number/volume) 4.55 10*6/uL 4.35-5.85 Venous blood hemoglobin measurement (mass/volume) 13.8 [...] Automated blood platelet mean volume measurement 9.4 [foz_us] 7.4-10.4 Automated blood neutrophils/100 leukocytes 65 % [...] 12:05 Blood leukocytes automated count (number/volume) 7.7 10*3/uL 4.3-11.0 Blood erythrocytes automated count (number/volume) 4.59 10*6/uL 4.35-5.85 Venous blood hemoglobin measurement (mass/volume) 13.8 [...] Automated blood platelet mean volume measurement 9.8 [foz_us] 7.4-10.4 Automated blood neutrophils/100 leukocytes 61 % [...] Serum or plasma sodium measurement (moles/volume) 134 mmol/L 135-145 Serum or plasma potassium measurement (moles/volume) 4.7 mmol/L 3.6-5.0 Serum or plasma chloride measurement (moles/volume) 103 mmol/L 98-107 Carbon dioxide 21 mmol/L 21-32 Serum or plasma anion gap determination (moles/volume) 10 mmol/L 5-14 Serum or plasma urea nitrogen measurement (mass/volume) 11 mg/dL 7-18 Serum or plasma creatinine measurement (mass/volume) 0.88 mg/dL 0.60-1.30 Serum or plasma urea nitrogen/creatinine mass ratio 13 NRG Serum or plasma creatinine measurement with calculation of estimated glomerular filtration rate > NRG Serum or plasma glucose measurement (mass/volume) 319 mg/dL 70-105 Serum or plasma calcium measurement (mass/volume) 9.1 mg/dL 8.5-10.1 Methicillin resistant Staphylococcus aureus (MRSA) screening culture - 09:16 Methicillin resistant Staphylococcus aureus (MRSA) screening culture NEG NRG CULTURE, URINE - 11/07/17 15:18 CULTURE, URINE, ROUTINE SEE NOTE NRG Encounters ACCT No. Visit Date/Time Discharge Status Pt. Type Provider Facility Loc./Unit Complaint [id number] 09/15/2014 18:04:00 09/15/2014 23:59:59 CLS Outpatient NERY ANGELES [id number] 07/31/2014 14:15:00 07/31/2014 23:59:59 CLS Outpatient ANA ROSA BENNETT APRN [id number] 05/01/2014 15:56:00 05/01/2014 23:59:59 CLS Outpatient ANAHI LSNERY SHEIKH Zaheer [id number] 04/10/2014 12:59:00 04/10/2014 23:59:59 CLS Outpatient ANAHI LSAGUILAR, NERY R [id number] 02/26/2014 14:03:00 02/26/2014 23:59:59 CLS Outpatient BING BEAR PSYD [id number] 01/09/2014 16:01:00 01/09/2014 23:59:59 CLS Outpatient BING BEAR PSYD [id number] 10/10/2013 12:50:00 10/10/2013 23:59:59 CLS Outpatient TAMMY JOSE LCPC [id number] 02/14/2011 00:00:00 02/14/2011 23:59:59 [place] [id number] 11/07/2017 14:00:00 11/07/2017 23:59:59 CLS Outpatient [facility] [id number] 11/07/2017 14:00:00 Document Registration 08/201706/03/2017 06:13:01 06/03/2017 23:59:59 CLS Outpatient MookTierra hernandez [id number] 09/13/2016 10:00:00 09/13/2016 23:59:59 CLS Preadmit DALLIN MCNAIR MD [facility] SDC RIGHT KNEE TORN MEDIAL MENISCUS [id number] 09/07/2016 08:58:00 09/07/2016 09:20:00 DIS Outpatient DALLIN MCNAIR MD [facility] PREOP RIGHT KNEE TORN MEDICAL MENISCUS [id number] 08/23/2016 11:42:00 08/23/2016 12:48:00 DIS Emergency TYLER YA APRN [facility] ER WOUND CHECK [id number] 08/18/2016 22:01:00 08/18/2016 23:23:00 DIS Outpatient TYLER YA APRN [facility] ER VAGINAL BOIL [id number] 08/04/2016 13:19:00 08/04/2016 23:59:59 CLS Outpatient DALLIN MCNAIR MD [facility] RAD SYMPTOMATIC MEDIAL PICCA [id number] 07/25/2016 14:31:00 07/25/2016 16:00:00 DIS Emergency TYLER YA GENERAL DENTIST/OWNER [facility] ER COLD SYMPTOMS [id number] 10/24/2015 16:48:00 10/24/2015 19:00:00 DIS Emergency KIERSTEN MAR DO [facility] ER SORE ON STOMACH [id number] 10/15/2015 12:59:00 10/15/2015 23:59:59 CLS Outpatient DANESHANDA TIERRA [facility] RAD LOWER ABDOMINAL PAIN [id number] 07/29/2015 14:07:00 07/29/2015 23:59:59 CLS Outpatient KRIS YEE APRN [facility] RAD BILATERAL KNEE PAIN [id number] 06/11/2013 17:18:00 06/11/2013 23:59:59 CLS Outpatient [id number] 09/30/2012 19:34:00 09/30/2012 23:59:59 CLS Outpatient [id number] 10/13/2015 11:47:00 Document Registration [id number] 05/24/2012 12:15:00 Document Registration [id number] 07/07/2011 08:34:00 Document Registration [id number] 06/12/2010 20:11:00 Document Registration [id number] 05/24/2010 22:52:00 Document Registration
[2018-01-20 20:50] LABS: BASOPHILS # (AUTO) 0.1 10^3/uL (0.0-0.1); BASOPHILS % (AUTO) 0 % (0-10); EOSINOPHILS # (AUTO) 0.1 10^3/uL (0.0-0.3); EOSINOPHILS % (AUTO) 0 % (0-10); HEMATOCRIT 37 % (35-52); HEMOGLOBIN 13.4 G/DL (11.5-16.0); LYMPHOCYTES # (AUTO) 2.7 X 10^3 (1.0-4.0); LYMPHOCYTES % (AUTO) 22 % (12-44); MEAN CORPUSCULAR HEMOGLOBIN 31 PG (25-34); MEAN CORPUSCULAR HGB CONC 36 G/DL (32-36); MEAN CORPUSCULAR VOLUME 86 FL (80-99); MEAN PLATELET VOLUME 9.5 FL (7.4-10.4); MONOCYTES # (AUTO) 0.6 X 10^3 (0.0-1.0); MONOCYTES % (AUTO) 5 % (0-12); NEUTROPHILS # (AUTO) 8.5 X 10^3 (1.8-7.8); NEUTROPHILS % (AUTO) 72 % (42-75); PLATELET COUNT 341 10^3/uL (130-400); RED BLOOD COUNT 4.33 10^6/uL (4.35-5.85); RED CELL DISTRIBUTION WIDTH 12.7 % (10.0-14.5); WHITE BLOOD COUNT 11.9 10^3/uL (4.3-11.0)
--- NOTE | 2018-01-20 20:51 | ED Integumentary General ---
General Chief Complaint: Skin/Wound Problems Stated Complaint: BOIL IN BETWEEN LEGS Nursing Triage Note: left lower buttock area of concern Source: patient Exam Limitations: no limitations History of Present Illness Date Seen by Provider: Jan 20, 2018 Time Seen by Provider: 22:00 Initial Comments Patient is a 18-year-old female who presents to emergency room with complaints of an abscess to her left lower gluteal fold. She reports that this appeared 2 days ago and is very painful she is rating pain 10 out of 10. She also reports fever, she is a type II diabetic and has not been on her medications for over a month. She reports that the abscess is open and draining for 1 day. Timing/Duration: other (2 days) Location: genitalia (left gluteal fold) Associated Symptoms: fever Allergies and Home Medications Allergies Coded Allergies: ceftriaxone (Unverified Allergy, Mild, HIVES, 01/17/10) Home Medications Hydrocodone Bit/Acetaminophen 1 Tab Tab, 1 EACH PO Q6H PRN for PAIN Prescribed by: EVELIN CHRISTOPHER on 01/20/182150 Sulfamethoxazole/Trimethoprim 1 Each Tablet, 1 EACH PO BID Prescribed by: EVELIN CHRISTOPHER on 01/20/182150 Patient Home Medication List Home Medication List Reviewed: Yes Review of Systems Review of Systems Constitutional: see HPI, chills, fever : No Skin: see HPI, other (abscess to her left intergluteal fold.) All Other Systems Reviewed Negative Unless Noted: Yes Past Bjcqcyp-Lhcvao-Iiachj Hx Past Med/Social Hx: Reviewed Nursing Past Med/Soc Hx Patient Social History Alcohol Use: Denies Use Recreational Drug Use: No Smoking Status: Current Everyday Smoker Type Used: Cigarettes 2nd Hand Smoke Exposure: Yes Recent Foreign Travel: No Contact w/Someone Who Travel: No Recent Infectious Disease Expo: No Recent Hopitalizations: No Immunizations Up To Date Tetanus Booster (TDap): Less than 5yrs PED Vaccines UTD: No Date of Pneumonia Vaccine: May 27, 2012 Date of Influenza Vaccine: May 27, 2012 Seasonal Allergies Seasonal Allergies: Yes Past Medical History Surgeries: Yes (T&A, MULTIPLE ABSCESS I&D'S, "BLADDER STRETCHED" WHEN YOUNGER) Adenoidectomy, Bladder Surgery, Tonsillectomy Respiratory: No Cardiac: No Neurological: No Female Reproductive Disorders: Denies Genitourinary: Yes UTI-Chronic Gastrointestinal: Yes (Chronic constipation) Chronic Constipation Musculoskeletal: No Endocrine: No Diabetes, Insulin dep HEENT: No Cancer: No Psychosocial: No Integumentary: Yes Blood Disorders: No Family Medical History Reviewed Nursing Family Hx Physical Exam Vital Signs Vital Signs - First Documented 01/20/18 01/20/18 20:00 22:10 Temp 98.9 Pulse 98 Resp 18 B/P (MAP) 149/93 Pulse Ox 99 O2 Delivery Room Air Capillary Refill : General Appearance: WD/WN, no apparent distress HEENT: PERRL/EOMI, normal ENT inspection, TMs normal, pharynx normal Neck: non-tender, full range of motion, supple, normal inspection Cardiovascular: normal peripheral pulses, regular rate, rhythm, no edema, no gallop, no JVD, no murmur Respiratory: chest non-tender, lungs clear, normal breath sounds, no respiratory distress, no accessory muscle use Gastrointestinal: normal bowel sounds, non tender, soft, no organomegaly, no pulsatile mass Back: normal inspection, no CVA tenderness, no vertebral tenderness Neurologic/Psychiatric: alert, normal mood/affect, oriented x 3 Skin: normal color, warm/dry Skin Problem Location: other (left inner gluteal fold) Skin Problem Character: abscess, drainage (brown purulent drainage), other ( Exam was assisted by Nery ARZOLA.) Lymphatic: no adenopathy Progress/Results/Core Measures Results/Orders Lab Results Laboratory Tests Test 01/20/18 20:45 01/20/18 22:00 Range/Units White Blood Count 11.9 H 4.3-11.0 10^3/uL Red Blood Count 4.33 L 4.35-5.85 10^6/uL Hemoglobin 13.4 11.5-16.0 G/DL Hematocrit 37 35-52 % Mean Corpuscular Volume 86 80-99 FL Mean Corpuscular Hemoglobin 31 25-34 PG Mean Corpuscular Hemoglobin Concent 36 32-36 G/DL Red Cell Distribution Width 12.7 10.0-14.5 % Platelet Count 341 130-400 10^3/uL Mean Platelet Volume 9.5 7.4-10.4 FL Neutrophils (%) (Auto) 72 42-75 % Lymphocytes (%) (Auto) 22 12-44 % Monocytes (%) (Auto) 5 0-12 % Eosinophils (%) (Auto) 0 0-10 % Basophils (%) (Auto) 0 0-10 % Neutrophils # (Auto) 8.5 H 1.8-7.8 X 10^3 Lymphocytes # (Auto) 2.7 1.0-4.0 X 10^3 Monocytes # (Auto) 0.6 0.0-1.0 X 10^3 Eosinophils # (Auto) 0.1 0.0-0.3 10^3/uL Basophils # (Auto) 0.1 0.0-0.1 10^3/uL Sodium Level 136 135-145 MMOL/L Potassium Level 3.9 3.6-5.0 MMOL/L Chloride Level 103 98-107 MMOL/L Carbon Dioxide Level 21 21-32 MMOL/L Anion Gap 12 5-14 MMOL/L Blood Urea Nitrogen 13 7-18 MG/DL Creatinine 0.89 0.60-1.30 MG/DL Estimat Glomerular Filtration Rate > 60 BUN/Creatinine Ratio 15 Glucose Level 300 H 70-105 MG/DL Lactic Acid Level 1.24 0.50-2.00 MMOL/L Calcium Level 9.2 8.5-10.1 MG/DL Corrected Calcium 9.2 8.5-10.1 MG/DL Total Bilirubin 0.2 0.1-1.0 MG/DL Aspartate Amino Transf (AST/SGOT) 9 5-34 U/L Alanine Aminotransferase (ALT/SGPT) 13 0-55 U/L Alkaline Phosphatase 59 40-136 U/L Total Protein 6.4 6.4-8.2 GM/DL Albumin 4.0 3.2-4.5 GM/DL Glucometer 144 H 70-110 MG/DL Micro Results Microbiology 01/20/18 Blood Culture - Preliminary, Resulted No growth 01/20/18 Blood Culture - Preliminary, Resulted 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 (01/20/18 21:15) Insulin (Regular) Human (Humulin R (Per (01/20/18 21:30) Ns Iv 1000 Ml (Sodium Chloride 0.9%) (01/20/18 21:30) Medications Given in ED Vital Signs/I&O 01/20/18 01/20/18 20:00 22:10 Temp 98.9 97.8 Pulse 98 65 Resp 18 18 B/P (MAP) 149/93 Pulse Ox 99 O2 Delivery Room Air Room Air Progress Progress Note : Time: 21:30 Progress Note I have seen and evaluated the patient. A culture was sent of the drainage. Her blood sugars have trended down with insulin and Iv fluids. She has remained fever free. She agrees with plans for discharge. Close follow up with PCP. Return precautions were given. Departure Impression Primary Impression: Abscess Additional Impression: Uncontrolled type 2 diabetes mellitus Disposition: HOME, SELF-CARE Condition: Stable/Unchanged Departure-Patient Inst. Decision time for Depature: 21:38 Referrals: ROSHAN COOK DO (PCP/Family) Primary Care Physician Patient Instructions: Diabetes Type 2 (DC), Diabetes and Infections, Skin Abscess Add. Discharge Instructions: Take medications as directed and as previously prescribed. Follow-up with your primary care provider within 1 week for a recheck. Call first thing Sunday morning for an appointment time. Return back to emergency room for any worsening symptoms or concerns as needed. All discharge instructions reviewed with patient and/or family. Voiced understanding. Scripts Hydrocodone Bit/Acetaminophen (Hydrocodone/Acetaminophen 5/325mg Tablet) 1 Tab Tab 1 EACH PO Q6H PRN for PAIN, #14 TAB Prov: EVELIN CHRISTOPHER 01/20/18 Sulfamethoxazole/Trimethoprim (Bactrim Ds Tablet) 1 Each Tablet 1 EACH PO BID for 10 Days, #20 TAB Prov: EVELIN CHRISTOPHER 01/20/18 EVELIN CHRISTOPHER Jan 20, 2018 20:51
[2018-01-20 21:10] LABS: ALANINE AMINOTRANSFERASE 13 U/L (0-55); ALKALINE PHOSPHATASE 59 U/L (40-136); BILIRUBIN,TOTAL 0.2 MG/DL (0.1-1.0); BUN/CREATININE RATIO 15; CALCIUM 9.2 MG/DL (8.5-10.1); CARBON DIOXIDE 21 MMOL/L (21-32); CHLORIDE 103 MMOL/L (98-107); CREATININE SERUM 0.89 MG/DL (0.60-1.30); GFR ESTIMATED > 60; GLUCOSE 300 MG/DL (70-105); POTASSIUM 3.9 MMOL/L (3.6-5.0); SODIUM 136 MMOL/L (135-145); TOTAL PROTEIN 6.4 GM/DL (6.4-8.2)
[2018-01-20] MEDS ORDERED: HYDROcodone/APAP 7.5 MG/325 MG (LORTAB, LORCET PLUS) TABLET PO ONE (21:15)
[2018-01-20] MEDS ORDERED: inSUlin (REGULAR) HUMAN 1 UNIT/0.01 ML (CHARGE PER UNIT) IV ONE (21:30)
[2018-01-20] MEDS ORDERED: NS IV 1000 ML 1,000 ML IV SCH (21:30)
[2018-01-20] MEDS ORDERED: ACHD5005 PO (21:51)
[2018-01-20] MEDS ORDERED: SULF1TAB35 PO (21:51)
== END 2018-01-20 22:10 | disposition home or self-care (01) ==
LOC: EDUNIT# 18:43 → ER 18:44
DX: L02.31 Cutaneous abscess of buttock (principal); E11.65 Type 2 diabetes mellitus with hyperglycemia; F17.210 Nicotine dependence, cigarettes, uncomplicated; Z88.1 Allergy status to other antibiotic agents; Z90.89 Acquired absence of other organs; Z87.440 Personal history of urinary (tract) infections; Z87.19 Personal history of other diseases of the digestive system
CPT/HCPCS: 36415; 80053; 82962; 83605; 85025; 87040; 87070; 87205; 96361; 96374

== ENCOUNTER 2018-08-04 18:11 | Emergency (ER) | payer SELFPAY ==
[~2018-08-04] VITALS: Ht 165.1 cm; Wt 90.7 kg
[~2018-08-04 18:11] MED LIST changes: +ACHD5005 PO
--- NOTE | 2018-08-04 18:16 | NUR ---
NOTIFIED DARIUSZ MCGARRY THAT PT ST IS IN SEVERE PAIN WHILE IN THE WAITING ROOM.
[2018-08-04 18:37] LABS: BILIRUBIN,URINE NEGATIVE (NEGATIVE); CLARITY,URINE VERY CLOUDY; COLOR,URINE YELLOW; GLUCOSE, URINE (UA) 4+ (NEGATIVE); KETONES,URINE 1+ (NEGATIVE); LEUKOCYTE ESTERASE ,URINE 3+ (NEGATIVE); NITRITE,URINE POSITIVE (NEGATIVE); PH,URINE 5 (5-9); PROTEIN,URINE 2+ (NEGATIVE); UROBILINOGEN,URINE NORMAL (NORMAL)
[2018-08-04 18:49] LABS: BACTERIA,URINE LARGE /HPF; WBC,URINE TNTC /HPF
--- NOTE | 2018-08-04 18:49 | ED Abdominal Pain ---
General Stated Complaint: STOMACH PAIN/SOB Source of Information: Patient Exam Limitations: No Limitations History of Present Illness Date Seen by Provider: Aug 04, 2018 Time Seen by Provider: 18:45 Initial Comments 18-year-old female who presents to the emergency room with complaints of right upper quadrant abdominal pain that started yesterday. She also reports nausea vomiting. She is a known type II diabetic that has required insulin the past but reports she has not taken insulin for the past 2 months. Timing/Duration: 1-2 Days Severity/Quality: Sharp Location: RUQ Radiation: No Radiation Associated Symptoms: Nausea/Vomiting Allergies and Home Medications Allergies Coded Allergies: ceftriaxone (Unverified Allergy, Mild, HIVES, 01/17/10) Home Medications Hydrocodone Bit/Acetaminophen 1 Tab Tab, 1 EACH PO Q6H PRN for PAIN Prescribed by: EVELIN CHRISTOPHER on 01/20/182150 Hydrocodone Bit/Acetaminophen 1 Tab Tab, 1 EACH PO Q4-6HR PRN for PAIN-MODERATE Prescribed by: EVELIN CHRISTOPHER on 08/04/182108 Nitrofurantoin Monohyd/M-Cryst 100 Mg Capsule, 1 TAB PO BID Prescribed by: EVELIN CHRISTOPHER on 08/04/182108 Ondansetron HCl 4 Mg Tab, 4 MG PO Q4H PRN for NAUSEA/VOMITING Prescribed by: EVELIN CHRISTOPHER on 08/04/182108 Sulfamethoxazole/Trimethoprim 1 Each Tablet, 1 EACH PO BID Prescribed by: EVELIN CHRISTOPHER on 01/20/182150 Patient Home Medication List Home Medication List Reviewed: Yes Review of Systems Review of Systems Constitutional: see HPI; No chills, No fever Gastrointestinal: See HPI, Abdominal Pain (right upper quadrant), Nausea, Vomiting All Other Systems Reviewed Negative Unless Noted: Yes Past Nngqmrm-Avpetc-Htqyyx Hx Past Med/Social Hx: Reviewed Nursing Past Med/Soc Hx Patient Social History Type Used: Cigarettes 2nd Hand Smoke Exposure: Yes Recent Foreign Travel: No Contact w/Someone Who Travel: No Recent Hopitalizations: No Immunizations Up To Date Tetanus Booster (TDap): Less than 5yrs PED Vaccines UTD: No Date of Pneumonia Vaccine: May 27, 2012 Date of Influenza Vaccine: May 27, 2012 Seasonal Allergies Seasonal Allergies: Yes Past Medical History Surgeries: Yes (T&A, MULTIPLE ABSCESS I&D'S, "BLADDER STRETCHED" WHEN YOUNGER) Adenoidectomy, Bladder Surgery, Tonsillectomy Respiratory: No Cardiac: No Neurological: No Female Reproductive Disorders: Denies Genitourinary: Yes UTI-Chronic Gastrointestinal: Yes (Chronic constipation) Chronic Constipation Musculoskeletal: No Endocrine: No Diabetes, Insulin dep HEENT: No Cancer: No Psychosocial: No Integumentary: Yes Blood Disorders: No Family Medical History Reviewed Nursing Family Hx Physical Exam Vital Signs Vital Signs - First Documented 08/04/18 18:24 Temp 99.8 Pulse 122 Resp 23 B/P (MAP) 133/93 (106) Pulse Ox 97 O2 Delivery Room Air Capillary Refill : Height/Weight/BMI Height: 5'6.00" Weight: 207lbs. 0oz. 93.507681xv; 28.12 BMI Method:Stated General Appearance: WD/WN, no apparent distress Respiratory: chest non-tender, lungs clear, normal breath sounds, no respiratory distress, no accessory muscle use Cardiovascular: normal peripheral pulses, regular rate, rhythm, no edema, no gallop, no JVD, no murmur Neurologic/Psychiatric: alert, normal mood/affect, oriented x 3 Skin: normal color, warm/dry Progress/Results/Core Measures Results/Orders Lab Results Laboratory Tests Test 08/04/18 18:25 08/04/18 19:00 08/04/18 21:02 Range/Units Urine Color YELLOW Urine Clarity VERY CLOUDY H Urine pH 5 5-9 Urine Specific [place] 1.025 H 1.016-1.022 Urine Protein 2+ H NEGATIVE Urine Glucose (UA) 4+ H NEGATIVE Urine Ketones 1+ H NEGATIVE Urine Nitrite POSITIVE H NEGATIVE Urine Bilirubin NEGATIVE NEGATIVE Urine Urobilinogen NORMAL NORMAL MG/DL Urine Leukocyte Esterase 3+ H NEGATIVE Urine RBC (Auto) 3+ H NEGATIVE Urine RBC 10-25 H /HPF Urine WBC TNTC H /HPF Urine Squamous Epithelial Cells NONE /HPF Urine Crystals NONE /LPF Urine Bacteria LARGE H /HPF Urine Casts NONE /LPF Urine Mucus NEGATIVE /LPF Urine Culture Indicated YES White Blood Count 11.4 H 4.3-11.0 10^3/uL Red Blood Count 4.78 4.35-5.85 10^6/uL Hemoglobin 14.6 11.5-16.0 G/DL Hematocrit 42 35-52 % Mean Corpuscular Volume 88 80-99 FL Mean Corpuscular Hemoglobin 31 25-34 PG Mean Corpuscular Hemoglobin Concent 35 32-36 G/DL Red Cell Distribution Width 12.7 10.0-14.5 % Platelet Count 381 130-400 10^3/uL Mean Platelet Volume 9.8 7.4-10.4 FL Neutrophils (%) (Auto) 66 42-75 % Lymphocytes (%) (Auto) 24 12-44 % Monocytes (%) (Auto) 9 0-12 % Eosinophils (%) (Auto) 0 0-10 % Basophils (%) (Auto) 0 0-10 % Neutrophils # (Auto) 7.6 1.8-7.8 X 10^3 Lymphocytes # (Auto) 2.8 1.0-4.0 X 10^3 Monocytes # (Auto) 1.1 H 0.0-1.0 X 10^3 Eosinophils # (Auto) 0.0 0.0-0.3 10^3/uL Basophils # (Auto) 0.0 0.0-0.1 10^3/uL Sodium Level 137 135-145 MMOL/L Potassium Level 3.6 3.6-5.0 MMOL/L Chloride Level 102 98-107 MMOL/L Carbon Dioxide Level 22 21-32 MMOL/L Anion Gap 13 5-14 MMOL/L Blood Urea Nitrogen 7 7-18 MG/DL Creatinine 0.87 0.60-1.30 MG/DL Estimat Glomerular Filtration Rate > 60 BUN/Creatinine Ratio 8 Glucose Level 315 H 70-105 MG/DL Calcium Level 9.6 8.5-10.1 MG/DL Corrected Calcium 9.4 8.5-10.1 MG/DL Total Bilirubin 0.7 0.1-1.0 MG/DL Aspartate Amino Transf (AST/SGOT) 10 5-34 U/L Alanine Aminotransferase (ALT/SGPT) 16 0-55 U/L Alkaline Phosphatase 70 40-136 U/L Total Protein 7.1 6.4-8.2 GM/DL Albumin 4.3 3.2-4.5 GM/DL Amylase Level 36 25-125 U/L Lipase 18 8-78 U/L Serum Test, Qualitative NEGATIVE NEGATIVE Glucometer 245 H 70-110 MG/DL Micro Results Microbiology 08/04/18 Urine Culture - Final, Complete Escherichia coli My Orders Orders - EVELIN CHRISTOPHER Ua Culture If Indicated (08/04/18 18:33) Comprehensive Metabolic Panel (08/04/18 18:44) Lipase (08/04/18 18:44) Amylase (08/04/18 18:44) Hcg,Qualitative Serum (08/04/18 18:44) Saline Lock/Iv-Start (08/04/18 18:44) Cbc With Automated Diff (08/04/18 18:44) Ct Abdomen/Pelvis W (08/04/18 18:44) Iohexol Injection (Omnipaque 350 Mg/Ml 1 (08/04/18 19:00) Received Contrast (Contrast Received) (08/04/18 19:00) Sodium Chloride Flush (Catheter Flush Sy (08/04/18 19:00) Ns (Ivpb) (Sodium Chloride 0.9% Ivpb Bag (08/04/18 19:00) Urine Culture (08/04/18 18:25) Ns Iv 1000 Ml (Sodium Chloride 0.9%) (08/04/18 19:45) Insulin (Regular) Human (Humulin R (Per (08/04/18 19:45) Hydrocodone/Apap 5/325 Tablet (Lortab 5 (08/04/18 20:30) Accucheck Stat ONCE (08/04/18 20:45) Nitrofurantoin Capsule,Macro (Macrobid C (08/04/18 21:45) Rx-Hydrocodone/Apap 5-325 Mg (Rx-Vicodin (08/04/18 21:45) Rx-Ondansetron Po (Rx-Zofran Po) (08/04/18 21:32) Im/Sub-Q Injection Non-Ab Ed (08/04/18 ) Medications Given in ED Vital Signs/I&O 08/04/18 08/04/18 18:24 22:44 Temp 99.8 98.8 Pulse 122 95 Resp 23 20 B/P (MAP) 133/93 (106) 131/94 (106) Pulse Ox 97 99 O2 Delivery Room Air Room Air Progress Progress Note : Time: 21:00 Progress Note I have seen and evaluated the patient. I've informed her of her laboratory and imaging studies. I stressed the importance of following up with her primary care provider to further evaluate her right upper quadrant pain with a possible ultrasound of her gallbladder. We were unable to ultrasound tonight due to no coverage. She has had improvement of her pain and nausea. She was also instructed to follow-up to get better medical management of her diabetes. She agrees with plan of care, plans for discharge, return precautions were given. Diagnostic Imaging Diagonstic Imaging: CT Plain Films/CT/US/NM/MRI: abdomen, pelvis Comments NAME: ZHANG SORENSEN [facility] REC#: [id number] PT STATUS: REG ER : 2000 PHYSICIAN: EVELIN CHRISTOPHER ADMIT DATE: 08/04/18/ER Signed Date of Exam: 08/04/18 CT ABDOMEN/PELVIS W PROCEDURE: CT abdomen and pelvis with contrast. TECHNIQUE: Multiple contiguous axial images were obtained through the abdomen and pelvis after administration of intravenous contrast. INDICATION: Right upper quadrant pain and loss of appetite. COMPARISON: 10/15/2015. FINDINGS: The heart size is normal. The lung bases are clear. There appears to be some mild fatty infiltration of the liver. Gallbladder is unremarkable. There is no biliary ductal dilatation. There are no focal liver lesions. Spleen is normal. The pancreas and adrenal glands are unremarkable. The kidneys are normal in appearance. The aorta is nonaneurysmal. There is no free air. There is no ascites. There is no focal inflammatory change. Bowel gas pattern is nonspecific. Appendix is normal. There appears to be a small bilateral ovarian cyst. Bladder is normal. There is no pelvic mass, adenopathy or free fluid. Osseous structures are unremarkable. IMPRESSION: 1. Mild fatty infiltration of the liver. 2. Probable bilateral ovarian cyst. 3. No other acute abnormality in the abdomen or pelvis. Dictated by: Dictated on workstation # [id number] Dict: 08/04/18 1948 Trans: 08/04/182000 Interpreted by: CARROLL ZALDIVAR MD Electronically signed by: CARROLL ZALDIVAR MD 08/04/182000 Reviewed: Reviewed by Me Departure Impression Primary Impression: RUQ abdominal pain Additional Impression: UTI (urinary tract infection) Disposition: HOME, SELF-CARE Condition: Stable/Unchanged Departure-Patient Inst. Decision time for Depature: 21:04 Referrals: [facility] (PCP/Family) Primary Care Physician Patient Instructions: Acute Abdomen (Belly Pain), Adult (DC), Urinary Tract Infection, Adult (DC) Add. Discharge Instructions: Take medications as directed. Call first thing tomorrow morning to schedule an appointment for medical management of your diabetes and to further evaluate your right upper quadrant pain. You may benefit from an ultrasound of your gallbladder to further evaluate gall stones. Return back to the emergency room for worsening symptoms or concerns as needed. Scripts Nitrofurantoin Monohyd/M-Cryst (Macrobid 100 mg Capsule) 100 Mg Capsule 1 TAB PO BID for 7 Days, #14 CAP Prov: EVELIN CHRISTOPHER 08/04/18 Ondansetron HCl (Zofran) 4 Mg Tab 4 MG PO Q4H PRN for NAUSEA/VOMITING, #14 TAB Prov: EVELIN CHRISTOPHER 08/04/18 Hydrocodone Bit/Acetaminophen (Hydrocodone/Acetaminophen 5/325mg Tablet) 1 Tab Tab 1 EACH PO Q4-6HR PRN for PAIN-MODERATE MDD 10, #10 TAB Prov: EVELIN CHRISTOPHER 08/04/18 EVELIN CHRISTOPHER Aug 04, 2018 18:49
[2018-08-04] MEDS ORDERED: IOHEXOL 350 MG/ML 100 ML (OMNIPAQUE 350) VIAL IV ONE (19:00)
[2018-08-04] MEDS ORDERED: NS 100 ML (IVPB) BAG IV ONE (19:00)
[2018-08-04] MEDS ORDERED: CATHETER FLUSH 10 ML SYR IV PRN (19:00)
[2018-08-04] MEDS ORDERED: HOLD METFORMIN - RECEIVED CONTRAST 20 ML VIAL IV SCH (19:00)
[2018-08-04 19:11] LABS: BASOPHILS % (AUTO) 0 % (0-10); EOSINOPHILS % (AUTO) 0 % (0-10); HEMATOCRIT 42 % (35-52); HEMOGLOBIN 14.6 G/DL (11.5-16.0); LYMPHOCYTES # (AUTO) 2.8 X 10^3 (1.0-4.0); LYMPHOCYTES % (AUTO) 24 % (12-44); MEAN CORPUSCULAR HEMOGLOBIN 31 PG (25-34); MEAN CORPUSCULAR HGB CONC 35 G/DL (32-36); MEAN CORPUSCULAR VOLUME 88 FL (80-99); MEAN PLATELET VOLUME 9.8 FL (7.4-10.4); MONOCYTES # (AUTO) 1.1 X 10^3 (0.0-1.0); MONOCYTES % (AUTO) 9 % (0-12); NEUTROPHILS # (AUTO) 7.6 X 10^3 (1.8-7.8); NEUTROPHILS % (AUTO) 66 % (42-75); PLATELET COUNT 381 10^3/uL (130-400); RED CELL DISTRIBUTION WIDTH 12.7 % (10.0-14.5); WHITE BLOOD COUNT 11.4 10^3/uL (4.3-11.0)
[2018-08-04 19:31] LABS: ALANINE AMINOTRANSFERASE 16 U/L (0-55); ALBUMIN 4.3 GM/DL (3.2-4.5); ALKALINE PHOSPHATASE 70 U/L (40-136); AMYLASE 36 U/L (25-125); BILIRUBIN,TOTAL 0.7 MG/DL (0.1-1.0); BUN/CREATININE RATIO 8; CALCIUM 9.6 MG/DL (8.5-10.1); CARBON DIOXIDE 22 MMOL/L (21-32); CHLORIDE 102 MMOL/L (98-107); CREATININE SERUM 0.87 MG/DL (0.60-1.30); GFR ESTIMATED > 60; GLUCOSE 315 MG/DL (70-105); LIPASE 18 U/L (8-78); POTASSIUM 3.6 MMOL/L (3.6-5.0); SODIUM 137 MMOL/L (135-145); TOTAL PROTEIN 7.1 GM/DL (6.4-8.2)
[2018-08-04] MEDS ORDERED: NS IV 1000 ML 1,000 ML IV SCH (19:45)
[2018-08-04] MEDS ORDERED: inSUlin (REGULAR) HUMAN 1 UNIT/0.01 ML (CHARGE PER UNIT) SC SCH (19:45)
--- NOTE | 2018-08-04 19:54 | Diagnostic Imaging Report ---
PROCEDURE: CT abdomen and pelvis with contrast. TECHNIQUE: Multiple contiguous axial images were obtained through the abdomen and pelvis after administration of intravenous contrast. INDICATION: Right upper quadrant pain and loss of appetite. COMPARISON: 10/15/2015. FINDINGS: The heart size is normal. The lung bases are clear. There appears to be some mild fatty infiltration of the liver. Gallbladder is unremarkable. There is no biliary ductal dilatation. There are no focal liver lesions. Spleen is normal. The pancreas and adrenal glands are unremarkable. The kidneys are normal in appearance. The aorta is nonaneurysmal. There is no free air. There is no ascites. There is no focal inflammatory change. Bowel gas pattern is nonspecific. Appendix is normal. There appears to be a small bilateral ovarian cyst. Bladder is normal. There is no pelvic mass, adenopathy or free fluid. Osseous structures are unremarkable. IMPRESSION: 1. Mild fatty infiltration of the liver. 2. Probable bilateral ovarian cyst. 3. No other acute abnormality in the abdomen or pelvis. Dictated by: Dictated on workstation # [id number]
[2018-08-04] MEDS ORDERED: HYDROcodone/APAP 5 MG/325 MG (LORTAB) TAB PO ONE (20:30)
[2018-08-04] MEDS ORDERED: ONDN4T PO (21:09)
[2018-08-04] MEDS ORDERED: ACHD5005 PO (21:09)
[2018-08-04] MEDS ORDERED: NITR-65 PO (21:09)
[2018-08-04] MEDS ORDERED: RX-ONDANSETRON 4 MG ODT (ZOFRAN) PPK #4 PO STA (21:32)
[2018-08-04] MEDS ORDERED: RX-HYDROCODONE/APAP 5/325 MG #4 TAB PK PO PRN (21:45)
[2018-08-04] MEDS ORDERED: NITROFURANTOIN 100 MG (MACROBID) CAPSULE PO ONE (21:45)
[2018-08-04 22:44] VITALS: BP 131/94
== END 2018-08-04 22:44 | disposition home or self-care (01) ==
LOC: EDUNIT# 18:11 → ER 18:12
DX: N39.0 Urinary tract infection, site not specified (principal); E11.9 Type 2 diabetes mellitus without complications; Z88.1 Allergy status to other antibiotic agents; Z77.22 Contact with and (suspected) exposure to environmental tobacco smoke (acute) (chronic); Z90.89 Acquired absence of other organs; Z98.890 Other specified postprocedural states; Z87.440 Personal history of urinary (tract) infections; Z87.19 Personal history of other diseases of the digestive system
CPT/HCPCS: 36415; 74177; 80053; 81000; 82150; 82962; 83690; 84703; 85025; 87077; 87088; 87186; 96360; 96361; 96372

== ENCOUNTER 2019-11-01 16:04 | Emergency (ER) | payer SELFPAY ==
[~2019-11-01] VITALS: Ht 160 cm; Wt 90.4 kg
[~2019-11-01 16:04] MED LIST changes: -D-ME118S7 PO; +NITR-65 PO; +ONDN4T PO; +PROM118S5 PO
--- OUTSIDE RECORDS SUMMARY | 2019-11-01 16:11 | XMS REPORT ---
Author Author Fiorella BEAR Organization [facility] Address [address] [place] [address] Care Team Providers Care Looseleaf Binder Coverer Name Role Phone BING BEAR Unavailable PROBLEMS Type Condition ICD9-CM Code MFN64-TF Code Onset Dates Condition S tatus SNOMED Code Problem Attention deficit disorder F90.0 Act charlette [id number] Problem Anxiety disorder, unspecified F41.9 Active 013201878 Problem Dysthymic disorder F34.1 Active 7 4145995 Problem Type 2 diabetes mellitus wit hout complication, without long-term current use of insulin E11.9 Active 152484413 Problem Severe episode of recurrent major depressive disorder, without psychotic features F33.2 Active 77259099 Problem Social phobia F40.10 Active 652397 02 Problem Depressive disorder, not elsewhere classified F32. 9 Active 15486570 Problem Mood disorder F39 Active 772272 05 Problem Allergic rhinitis, unspecified seasonality, unspecifie d trigger J30.9 Active 63695827 ALLERGIES No Information ENCOUNTERS Encounter Location Date Diagnosis [place] [address] [place] [phone] Jul, [facility] [address] [place] [id number] [place] [phone] May, [facility] [address] [place] [phone] May, [facility] [address] [id number] [address] [place] [id number] May, Dental examination Z01.20 an d Caries K02.9 [facility] [address] [place] [address] Apr, [facility] [address] [place] [id number] [place] [phone] Apr, Cervical radiculopathy M54.1 2 [facility] [address] [id number] [address] [place] [phone] Mar, Type 2 diabetes mellitus wit hout complication, without long-term current use of insulin E11.9 [facility] [address] [id number] [address] [place] [phone] Mar, [facility] [address] [id number] [address] [place] [phone] Mar, Trochanteric bursitis of lef t hip M70.62 ; Encounter for initial prescription of contraceptive pills Z30.011 and Type 2 diabetes mellitus without complication, without long-term current use of insulin E11.9 [facility] [address] [id number] [address] [place] [phone] Mar, [facility] [address] [facility] [id number] [address] [place] [phone] Feb, Left hip pain M25.552 [facility] [address] [facility] [id number] [address] [place] [phone] Feb, [facility] [address] [facility] [id number] [address] [place] [phone] Feb, [facility] [address] [facility] [id number] [address] [place] [phone] Jan, Anxiety disorder, unspecifie d F41.9 [facility] [address] [facility] [id number] [address] [place] [phone] Jan, High risk heterosexual behav ior Z72.51 and Left hip pain M25.552 [facility] [address] [id number] [address] [place] [id number] Dec, Dental examination Z01.20 [facility] [address] [facility] [id number] [address] [place] [phone] Oct, [facility] [address] [facility] [id number] [place] [phone] 17 Oct, 2018 Severe episode of recurrent major depressive disorder, without psychotic features F33.2 and Type 2 diabetes mellitus without complication, without long-term current use of insulin E11.9 [facility] [address] [phone] Jul, [facility] [address] [phone] Jul, Viral upper respiratory trac t infection J06.9 [place] [address] [address] May, Vaginal discharge N89.8 [place] [address] [phone] Feb, [place] [address] [phone] 04 Feb, 2018 Dysuria R30.0 ; Sore throat J02.9 ; Allergic rhinitis, unspecified seasonality, unspecified trigger J30.9 and Vaginal betzy B37.3 [place] [address] [id number] 06 Jan, 2018 Cutaneous abscess of buttock L02.31 [facility] [place] [id number] [place] [id number] [place] [phone] 23 Oct, 2017 [place] [address] [phone] Oct, [place] [address] [address] Oct, Cystitis N30.90 and Dysuria R30.0 [facility] [address] [place] [id number] Oct, 2017 Dental examination Z01.20 [facility] [address] [place] [id number] [place] [phone] May, Fever, unspecified fever cau se R50.9 and Acute nasopharyngitis J00 [facility] [address] [id number] [address] [place] [phone] Dec, Mood disorder F39 [facility] [address] [id number] [address] [place] [phone] Dec, Mood disorder F39 [facility] [address] [facility] [id number] [address] [place] [phone] Jul, Depressive disorder, not els ewhere classified F32.9 and Social phobia F40.10 [facility] [address] [id number] [address] [place] [id number] Jul, Encounter for dental examina tion Z01.20 [facility] [address] [facility] [id number] [address] [place] [phone] Jan, Depressive disorder, not els ewhere classified 311 ; Anxiety state, unspecified 300.00 and Attention deficit disorder without mention of hyperactivity 314.00 [facility] [address] [facility] [id number] [address] [place] [phone] Jan, Depressive disorder, not els ewhere classified 311 ; Anxiety state, unspecified 300.00 and Attention deficit disorder without mention of hyperactivity 314.00 [facility] [address] [facility] [id number] [address] [place] [phone] Oct, Depressive disorder, not els ewhere classified 311 [facility] [address] [facility] [id number] [address] [place] [phone] September, Depressive disorder, not els ewhere classified 311 [facility] [address] [facility] [id number] [address] [place] [phone] Aug, [facility] [address] [facility] [id number] [address] [place] [phone] Aug, [facility] [address] [facility] [id number] [address] [place] [phone] Aug, [facility] [address] [facility] [id number] [address] [place] [phone] Jul, [facility] [address] [id number] [address] [place] [address], [place] [address] Jul, [facility] [address] [id number] [address] [place] [address], [place] [address] Jun, [facility] [address] [id number] [address] [place] [address], [place] [address] Jun, [facility] [address] [id number] [address] [place] [address], [place] [address] Apr, [facility] [address] [id number] [address] [place] [address], [place] [address] Apr, [facility] [address] [id number] [address] [place] [address], [place] [address] Mar, [facility] [address] [id number] [address] [place] [address], [place] [address] Mar, [facility] [address] [id number] [address] [place] [address], [place] [address] Feb, [facility] [address] [id number] [address] [place] [address], [place] [address] Feb, [facility] [address] [id number] [address] [place] [address], [place] [address] Dec, [facility] [address] [id number] [address] [place] [address], [place] [address] Dec, [facility] [address] [id number] [address] [place] [address], [place] [address] Nov, [facility] [address] [id number] [address] [place] [address], [place] [address] Nov, [facility] [address] [id number] [address] [place] [address], [place] [address] September, [facility] [address] [id number] [address] [place] [address], [place] [address] September, [facility] [address] [id number] [address] [place] [phone] Aug, [facility] [address] [facility] [id number] [address] [place] [phone] Apr, [facility] [address] [facility] [id number] [address] [place] [phone] Apr, [facility] [address] [facility] [id number] [address] [place] [phone] Apr, IMMUNIZATIONS No Known Immunizations SOCIAL HISTORY Never Assessed REASON FOR VISIT PLAN OF CARE VITAL SIGNS MEDICATIONS Unknown Medications RESULTS No Results PROCEDURES Procedure Date Ordered Result Body Site PSYTX PT&/FAMILY 30 MINUTES Feb 26, 2014 INSTRUCTIONS MEDICATIONS ADMINISTERED No Known Medications MEDICAL (GENERAL) HISTORY Type Description Date Medical History Diabetes-II Medical History Anxiety disorder, unspecified Medical History Mood disorder Medical History Social phobia Medical History no hx of seizures or head injuries Surgical History Tonsils removed 2002 Surgical History Blood infection 2010 Hospitalization History ER visit for boil 2018
--- OUTSIDE RECORDS SUMMARY | 2019-11-01 16:11 | XMS REPORT ---
Author Author Bart, Fiorella Doctor Organization [facility] Address Unknown Phone Unavailable Care Team Providers Care Machine I Cutter Name Role Phone Migration, Doctor Unavailable Unavailable PROBLEMS Type Condition ICD9-CM Code BJS12-LM Code Onset Dates Condition S tatus SNOMED Code Problem Attention deficit disorder F90.0 Act charlette [id number] Problem Mood disorder F39 Active 894688 05 Problem Allergic rhinitis, unspecified seasonality, unspecifie d trigger J30.9 Active 66156116 Problem Anxiety disorder, unspecified F41.9 Active 232600922 Problem Dysthymic disorder F34.1 Active 7 1781703 Problem Social phobia F40.10 Active 782696 02 Problem Depressive disorder, not elsewhere classified F32. 9 Active 10703175 ALLERGIES No Information ENCOUNTERS Encounter Location Date Diagnosis [facility] [address] [id number] [address] [place] [phone] Jul, [facility] [address] [id number] [address] [place] [address] Jul, Viral upper respiratory trac t infection J06.9 [facility] [address] [id number] [address] [place] [address] May, Vaginal discharge N89.8 [place] [address] [id number] [address] [place] [address] Feb, [place] [address] [id number] [address] [place] [address] Feb, Dysuria R30.0 ; Sore throat J02.9 ; Allergic rhinitis, unspecified seasonality, unspecified trigger J30.9 and Vaginal betzy B37.3 [facility] [address] [id number] [address] [place] [id number] 06 Jan, 2018 Cutaneous abscess of buttock L02.31 [facility] [address] [id number] [address] [place] [address] Oct, [facility] [address] [id number] [address] [place] [address] Oct, [facility] [address] [id number] [address] [place] [address] Oct, Cystitis N30.[address] [facility] [address] [id number] [address] [place] [id number] Oct, Dental examination Z01.20 [facility] [address] [id number] [address] [place] [address] May, Fever, unspecified fever cau se R50.9 and Acute nasopharyngitis J00 [facility] [address] [id number] [address] [place] [address] Dec, Mood disorder F39 [facility] [address] [id number] [address] [place] [address] Dec, Mood disorder F39 [facility] [address] [facility] [id number] [address] [place] [address] Jul, Depressive disorder, not els ewhere classified F32.9 [address] F40.10 [facility] [address] [id number] [address] [place] [id number] Jul, Encounter for dental examina tion Z01.20 [facility] [address] [id number] [address] [place] [address] Jan, Depressive disorder, not els ewhere classified 311 ; Anxiety state, unspecified 300.00 and Attention deficit disorder without mention of hyperactivity 314.00 [facility] [address] [facility] [id number] [address] [place] [address] Jan, Depressive disorder, not els ewhere classified 311 ; Anxiety state, unspecified 300.00 and Attention deficit disorder without mention of hyperactivity 314.00 [facility] [address] [facility] [id number] [address] [place] [phone] Oct, Depressive disorder, not els ewhere classified 311 [facility] [address] [id number] [address] [place] [address], [place] [address] September, Depressive disorder, not els ewhere classified 311 [facility] [address] [id number] [address] [place] [address], [place] [address] Aug, [facility] [address] [id number] [address] [place] [address], [place] [address] Aug, [facility] [address] [id number] [address] [place] [address], [place] [address] Aug, [facility] [address] [id number] [address] [place] [address], [place] [address] Jul, [facility] [address] [id number] [address] [place] [address], [place] [address] Jul, [facility] [address] [id number] [address] [place] [address], [place] [address] Jun, [facility] [address] [id number] [address] [place] [address], [place] [address] Jun, [facility] [address] [id number] [address] [place] [address], [place] [address] Apr, [facility] [address] [id number] [address] [place] [address] Apr, [facility] [address] [id number] [address] [place] [address], [place] [address] Mar, [facility] [address] [id number] [address] [place] [address] Mar, [facility] [address] [id number] [address] [place] [address], [place] [address] Feb, [facility] [address] [id number] [address] [place] [address] Feb, [facility] [address] [id number] [address] [place] [address] Dec, [facility] [address] [id number] [address] [place] [address] Dec, [facility] [address] [id number] [address] [place] [address] Nov, [facility] [address] [id number] [address] [place] [address] Nov, [facility] [address] [id number] [address] [place] [address] September, [facility] [address] [id number] [address] [place] [address] September, [facility] [address] [id number] [address] [place] [address] Aug, [facility] [address] [id number] [address] [place] [address] Apr, [facility] [address] [id number] [address] [place] [address] Apr, [facility] [address] [id number] [address] [place] [phone] Apr, IMMUNIZATIONS No Known Immunizations SOCIAL HISTORY Never Assessed REASON FOR VISIT [facility] PLAN OF CARE VITAL SIGNS MEDICATIONS Unknown Medications RESULTS No Results PROCEDURES No Known procedures INSTRUCTIONS MEDICATIONS ADMINISTERED No Known Medications MEDICAL (GENERAL) HISTORY Type Description Date Medical History Diabetes-II Surgical History Tonsils removed 2002 Surgical History Blood infection 2010 Hospitalization History ER visit for boil 2018
--- OUTSIDE RECORDS SUMMARY | 2019-11-01 16:11 | XMS REPORT ---
Author Author Fiorella CHRISTIAN Organization [facility] Address [address] [place] [address] Care Team Providers Care Senior Economist Name Role Phone ANAHIDMITRIYNERY Unavailable PROBLEMS Type Condition ICD9-CM Code SDH09-EN Code Onset Dates Condition S tatus SNOMED Code Problem Attention deficit disorder F90.0 Act charlette 313689197 Problem Anxiety disorder, unspecified F41.9 Active 565050883 Problem Dysthymic disorder F34.1 Active 7 1650592 Problem Type 2 diabetes mellitus wit hout complication, without long-term current use of insulin E11.9 Active 484345054 Problem Severe episode of recurrent major depressive disorder, without psychotic features F33.2 Active 20604413 Problem Social phobia F40.10 Active 639714 02 Problem Depressive disorder, not elsewhere classified F32. 9 Active 63591112 Problem Mood disorder F39 Active 072008 05 Problem Allergic rhinitis, unspecified seasonality, unspecifie d trigger J30.9 Active 28611927 ALLERGIES No Information ENCOUNTERS Encounter Location Date Diagnosis [place] [address] [id number] [address] [place] [address] Jul, [facility] [address] [id number] [address] [place] [address] May, [facility] [address] [id number] [address] [place] [address] May, [facility] [address] [id number] [address] [place] [address] [id number] May, Dental examination Z01.20 an d Caries K02.9 [facility] [address] [id number] [address] [place] [address] Apr, [facility] [address] [id number] [address] [place] [address] Apr, Cervical radiculopathy M54.1 2 [facility] [address] [id number] [address] [place] [address] Mar, Type 2 diabetes mellitus wit hout complication, without long-term current use of insulin E11.9 [facility] [address] [id number] [address] [place] [address] Mar, [facility] [address] [facility] [id number] [address] [place] [address] Mar, Trochanteric bursitis of lef t hip M70.62 ; Encounter for initial prescription of contraceptive pills Z30.011 and Type 2 diabetes mellitus without complication, without long-term current use of insulin E11.9 [facility] [address] [id number] [address] [place] [address] Mar, [facility] [address] [facility] [id number] [address] [place] [address] Feb, Left hip pain M25.552 [facility] [address] [id number] [address] [place] [address] Feb, [facility] [address] [facility] [id number] [address] [place] [phone] Feb, [facility] [address] [facility] [id number] [address] [place] [address] Jan, Anxiety disorder, unspecifie d F41.9 [facility] [address] [facility] [id number] [address] [place] [address] Jan, High risk heterosexual behav ior Z72.51 and Left hip pain M25.552 [facility] [address] [id number] [address] [place] [address] [id number] Dec, Dental examination Z01.20 [facility] [address] [id number] [address] [place] [address] Oct, [facility] [address] [facility] [id number] [address] [place] [address] Oct, Severe episode of recurrent major depressive disorder, without psychotic features F33.2 and Type 2 diabetes mellitus without complication, without long-term current use of insulin E11.9 [facility] [address] [phone] Jul, [facility] [address] [address] Jul, Viral upper respiratory trac t infection J06.9 [place] [address] [address] May, Vaginal discharge N89.8 [place] [address] [address] Feb, [place] [address] [id number] 04 Feb, 2018 Dysuria R30.0 ; Sore throat J02.9 ; Allergic rhinitis, unspecified seasonality, unspecified trigger J30.9 and Vaginal betzy B37.3 [place] [address] [address] 06 Jan, 2018 Cutaneous abscess of buttock L02.31 [facility] [place] [address] [id number] [address] [place] [id number] 23 Oct, 2017 [place] [address] [address] Oct, [place] [address] [address] Oct, Cystitis N30.90 and Dysuria R30.0 [facility] [id number] [place] [id number] 15 Oct, 2017 Dental examination Z01.20 [facility] [address] [id number] [address] [place] [address] May, Fever, unspecified fever cau se R50.9 and Acute nasopharyngitis J00 [place] [address] [id number] [address] [place] [address] Dec, Mood disorder F39 [facility] [address] [facility] [id number] [address] [place] [address] Dec, Mood disorder F39 [facility] [address] [facility] [id number] [address] [place] [address] Jul, Depressive disorder, not els ewhere classified F32.9 and Social phobia F40.10 [facility] [address] [id number] [address] [place] [address] [id number] Jul, Encounter for dental examina tion Z01.20 [facility] [address] [facility] [id number] [address] [place] [address] Jan, Depressive disorder, not els ewhere classified 311 ; Anxiety state, unspecified 300.00 and Attention deficit disorder without mention of hyperactivity 314.00 [facility] [address] [facility] [id number] [address] [place] [address] Jan, Depressive disorder, not els ewhere classified 311 ; Anxiety state, unspecified 300.00 and Attention deficit disorder without mention of hyperactivity 314.00 [facility] [address] [facility] [id number] [address] [place] [address] Oct, Depressive disorder, not els ewhere classified 311 [facility] [address] [facility] [id number] [address] [place] [phone] September, Depressive disorder, not els ewhere classified 311 [facility] [address] [facility] [id number] [address] [place] [phone] Aug, [facility] [address] [facility] [id number] [address] [place] [phone] Aug, [facility] [address] [facility] [id number] [address] [place] [phone] Aug, [facility] [address] [facility] [id number] [address] [place] [address] Jul, [facility] [address] [id number] [address] [place] [address], [place] [address] Jul, [facility] [address] [id number] [address] [place] [address], [place] [address] Jun, [facility] [address] [id number] [address] [place] [address], [place] [address] Jun, [facility] [address] [id number] [address] [place] [address], [place] [address] Apr, [facility] [address] [id number] [address] [place] [address], [place] [address] Apr, [facility] [address] [id number] [address] [place] [address], [place] [address] Mar, [facility] [address] [id number] [address] [place] [address], [place] [address] Mar, [facility] [address] [id number] [address] [place] [address], [place] [address] Feb, [facility] [address] [id number] [address] [place] [address], [place] [address] Feb, [facility] [address] [id number] [address] [place] [address], [place] [address] Dec, [facility] [address] [id number] [address] [place] [address], [place] [address] Dec, [facility] [address] [id number] [address] [place] [address], [place] [address] Nov, [facility] [address] [id number] [address] [place] [address], [place] [address] Nov, [facility] [address] [id number] [address] [place] [address], [place] [address] September, [facility] [address] [id number] [address] [place] [address], [place] [address] September, [facility] [address] [id number] [address] [place] [address], [place] [address] Aug, [facility] [address] [facility] [id number] [address] [place] [address] Apr, [facility] [address] [facility] [id number] [address] [place] [phone] Apr, [facility] [address] [facility] [id number] [address] [place] [address] Apr, IMMUNIZATIONS No Known Immunizations SOCIAL HISTORY Never Assessed REASON FOR VISIT PLAN OF CARE VITAL SIGNS MEDICATIONS Unknown Medications RESULTS No Results PROCEDURES Procedure Date Ordered Result Body Site PSYTX PT&/FAMILY 45 MINUTES May 01, 2014 INSTRUCTIONS MEDICATIONS ADMINISTERED No Known Medications MEDICAL (GENERAL) HISTORY Type Description Date Medical History Diabetes-II Medical History Anxiety disorder, unspecified Medical History Mood disorder Medical History Social phobia Medical History no hx of seizures or head injuries Surgical History Tonsils removed 2002 Surgical History Blood infection 2010 Hospitalization History ER visit for boil 2018
--- OUTSIDE RECORDS SUMMARY | 2019-11-01 16:11 | XMS REPORT ---
Author Author Fiorella Oakes Organization [facility] Address [address] [place] [address] Care Team Providers Care Cascade Operator Name Role Phone ANA ROSA Oakes Unavailable PROBLEMS Type Condition ICD9-CM Code [id number] Code Onset Dates Condition S tatus SNOMED Code Problem Attention deficit disorder F90.0 Act charlette [id number] Problem Anxiety disorder, unspecified F41.9 Active 296509126 Problem Dysthymic disorder F34.1 Active 7 9823775 Problem Type 2 diabetes mellitus wit hout complication, without long-term current use of insulin E11.9 Active 381770046 Problem Severe episode of recurrent major depressive disorder, without psychotic features F33.2 Active 18858021 Problem Social phobia F40.10 Active 974757 02 Problem Depressive disorder, not elsewhere classified F32. 9 Active 67113049 Problem Mood disorder F39 Active 518128 05 Problem Allergic rhinitis, unspecified seasonality, unspecifie d trigger J30.9 Active 61229371 ALLERGIES No Information ENCOUNTERS Encounter Location Date Diagnosis [facility] [address] [id number] [address] [place] [id number] Dec, [facility] [address] [place] [id number] [address] [place] [phone] Oct, [facility] [address] [id number] [address] [place] [phone] Oct, Severe episode of recurrent major depressive disorder, without psychotic features F33.2 and Type 2 diabetes mellitus without complication, without long-term current use of insulin E11.9 [facility] [address] [facility] [id number] [address] [place] [address] Jul, [facility] [address] [place] [id number] [address] [place] [phone] Jul, Viral upper respiratory trac t infection J06.9 [facility] [address] [facility] [id number] [address] [place] [phone] May, Vaginal discharge N89.8 [facility] [address] [facility] [id number] [address] [place] [phone] Feb, [facility] [address] [facility] [id number] [address] [place] [address] Feb, Dysuria R30.0 ; Sore throat J02.9 ; Allergic rhinitis, unspecified seasonality, unspecified trigger J30.9 and Vaginal betzy B37.3 [place] [address] [facility] [id number] [address] [place] [phone] 06 Jan, 2018 Cutaneous abscess of buttock L02.31 [facility] [address] [facility] [id number] [address] [place] [phone] Oct, [facility] [address] [facility] [id number] [address] [place] [phone] Oct, [facility] [address] [facility] [id number] [address] [place] [address] Oct, Cystitis N30.90 and Dysuria R30.0 [facility] [address] [id number] [address] [place] [address] [phone] Oct, Dental examination Z01.20 [facility] [address] [facility] [id number] [address] [place] [phone] May, Fever, unspecified fever cau se R50.9 and Acute nasopharyngitis J00 [facility] [address] [facility] [id number] [address] [place] [phone] Dec, Mood disorder F39 [facility] [address] [facility] [id number] [address] [place] [phone] Dec, Mood disorder F39 [facility] [address] [facility] [id number] [address] [place] [phone] Jul, Depressive disorder, not els ewhere classified F32.9 and Social phobia F40.10 [facility] [address] [id number] [address] [place] [phone] Jul, Encounter for dental examina tion Z01.20 [facility] [address] [id number] [address] [place] [phone] Jan, Depressive disorder, not els ewhere classified 311 ; Anxiety state, unspecified 300.00 and Attention deficit disorder without mention of hyperactivity 314.00 [facility] [address] [id number] [address] [place] [address] Jan, Depressive disorder, not els ewhere classified 311 ; Anxiety state, unspecified 300.00 and Attention deficit disorder without mention of hyperactivity 314.00 [facility] [address] [id number] [address] [place] [phone] Oct, Depressive disorder, not els ewhere classified 311 [facility] [address] [id number] [address] [place] [phone] September, Depressive disorder, not els ewhere classified 311 [facility] [address] [id number] [address] [place] [phone] Aug, [facility] [address] [id number] [address] [place] [phone] Aug, [facility] [address] [id number] [address] [place] [phone] Aug, [facility] [address] [id number] [address] [place] [phone] Jul, [facility] [address] [id number] [address] [place] [phone] Jul, [facility] [address] [id number] [address] [place] [phone] Jun, [facility] [address] [id number] [address] [place] [phone] Jun, [facility] [address] [id number] [address] [place] [address], [place] [address] Apr, [facility] [address] [id number] [address] [place] [address], [place] [address] Apr, [facility] [address] [id number] [address] [place] [address], [place] [address] Mar, [facility] [address] [id number] [address] [place] [address], [place] [address] Mar, [facility] [address] [id number] [address] [place] [address], [place] [address] Feb, [facility] [address] [id number] [address] [place] [address], [place] [address] Feb, [facility] [address] [id number] [address] [place] [address], [place] [address] Dec, [facility] [address] [id number] [address] [place] [address], [place] [address] Dec, [facility] [address] [id number] [address] [place] [address], [place] [address] Nov, [facility] [address] [id number] [address] [place] [address], [place] [address] Nov, [facility] [address] [id number] [address] [place] [address], [place] [address] September, [facility] [address] [id number] [address] [place] [address], [place] [address] September, [facility] [address] [id number] [address] [place] [address], [place] [address] Aug, [facility] [address] [id number] [address] [place] [address], [place] [address] Apr, [facility] [address] [id number] [address] [place] [address], [place] [address] Apr, [facility] [address] [id number] [address] [place] [address], [place] [address] Apr, IMMUNIZATIONS No Known Immunizations SOCIAL HISTORY Never Assessed REASON FOR VISIT PLAN OF CARE VITAL SIGNS Height 64 in 2014-07-31 Weight 216 lbs 2014-07-31 Temperature 97.3 degrees Fahrenheit 2014-07-31 Heart Rate 78 bpm 2014-07-31 Respiratory Rate 20 2014-07-31 Blood pressure systolic 102 mmHg 2014-07-31 Blood pressure diastolic 70 mmHg 2014-07-31 MEDICATIONS Unknown Medications RESULTS No Results PROCEDURES No Known procedures INSTRUCTIONS MEDICATIONS ADMINISTERED No Known Medications MEDICAL (GENERAL) HISTORY Type Description Date Medical History Diabetes-II Surgical History Tonsils removed 2002 Surgical History Blood infection 2010 Hospitalization History ER visit for boil 2018
--- OUTSIDE RECORDS SUMMARY | 2019-11-01 16:11 | XMS REPORT ---
Author Author Fiorella CHRISTIAN Organization [facility] Address [address] [place] [address] Care Team Providers Care Assistant Professor Of Economics Name Role Phone ANAHIDMITRIYNERY Unavailable PROBLEMS Type Condition ICD9-CM Code [id number] Code Onset Dates Condition S tatus SNOMED Code Problem Attention deficit disorder F90.0 Act charlette [id number] Problem Anxiety disorder, unspecified F41.9 Active 349938985 Problem Dysthymic disorder F34.1 Active 7 3528483 Problem Type 2 diabetes mellitus wit hout complication, without long-term current use of insulin E11.9 Active 947193767 Problem Severe episode of recurrent major depressive disorder, without psychotic features F33.2 Active 16950757 Problem Social phobia F40.10 Active 731225 02 Problem Depressive disorder, not elsewhere classified F32. 9 Active 01677342 Problem Mood disorder F39 Active 423795 05 Problem Allergic rhinitis, unspecified seasonality, unspecifie d trigger J30.9 Active 84440801 ALLERGIES No Information ENCOUNTERS Encounter Location Date Diagnosis [place] [id number] [place] [id number] [address] [place] [phone] Jul, [facility] [address] [id number] [address] [place] [phone] May, [facility] [address] [id number] [address] [place] [phone] May, [facility] [address] [id number] [address] [place] [phone] May, Dental examination Z01.20 an d Caries K02.9 [facility] [address] [id number] [address] [place] [phone] Apr, [facility] [address] [id number] [address] [place] [phone] Apr, Cervical radiculopathy M54.1 2 [facility] [address] [id number] [address] [place] [phone] Mar, Type 2 diabetes mellitus wit hout complication, without long-term current use of insulin E11.9 [facility] [address] [id number] [address] [place] [phone] Mar, [facility] [address] [facility] [id number] [address] [place] [phone] Mar, Trochanteric bursitis of lef t hip M70.62 ; Encounter for initial prescription of contraceptive pills Z30.011 and Type 2 diabetes mellitus without complication, without long-term current use of insulin E11.9 [facility] [address] [id number] [address] [place] [phone] Mar, [facility] [address] [facility] [id number] [address] [place] [phone] Feb, Left hip pain M25.552 [facility] [address] [id number] [address] [place] [phone] Feb, [facility] [address] [facility] [id number] [address] [place] [phone] Feb, [facility] [address] [facility] [id number] [address] [place] [phone] Jan, Anxiety disorder, unspecifie d F41.9 [facility] [address] [facility] [id number] [address] [place] [phone] Jan, High risk heterosexual behav ior Z72.51 and Left hip pain M25.552 [facility] [address] [id number] [address] [place] [id number] Dec, Dental examination Z01.20 [facility] [address] [id number] [address] [place] [phone] Oct, [facility] [address] [facility] [id number] [address] [place] [phone] Oct, Severe episode of recurrent major depressive disorder, without psychotic features F33.2 and Type 2 diabetes mellitus without complication, without long-term current use of insulin E11.9 [facility] [address] [phone] Jul, [facility] [address] [address] Jul, Viral upper respiratory trac t infection J06.9 [place] [address] [phone] May, Vaginal discharge N89.8 [place] [address] [phone] Feb, [place] [address] [id number] 04 Feb, 2018 Dysuria R30.0 ; Sore throat J02.9 ; Allergic rhinitis, unspecified seasonality, unspecified trigger J30.9 and Vaginal betzy B37.3 [place] [address] [id number] 06 Jan, 2018 Cutaneous abscess of buttock L02.31 [facility] [place] [address] [place] [id number] [address] [place] [phone] 23 Oct, 2017 [place] [address] [address] Oct, [place] [address] [phone] Oct, Cystitis N30.90 and Dysuria R30.0 [facility] [address] [place] [id number] [place] [address] [id number] 15 Oct, 2017 Dental examination Z01.20 [facility] [address] [place] [id number] [address] [place] [phone] May, Fever, unspecified fever cau se R50.9 and Acute nasopharyngitis J00 [place] [address] [id number] [address] [place] [phone] Dec, Mood disorder F39 [facility] [address] [facility] [id number] [address] [place] [phone] Dec, Mood disorder F39 [facility] [address] [facility] [id number] [address] [place] [phone] Jul, Depressive disorder, not els ewhere classified F32.9 and Social phobia F40.10 [facility] [address] [id number] [address] [place] [address] [id number] Jul, Encounter for dental examina tion Z01.20 [facility] [address] [facility] [id number] [address] [place] [phone] Jan, Depressive disorder, not els ewhere classified 311 ; Anxiety state, unspecified 300.00 and Attention deficit disorder without mention of hyperactivity 314.00 [facility] [address] [facility] [id number] [address] [place] [phone] Jan, Depressive disorder, not els ewhere classified 311 ; Anxiety state, unspecified 300.00 and Attention deficit disorder without mention of hyperactivity 314.00 [facility] [address] [facility] [id number] [address] [place] [phone] Oct, Depressive disorder, not els ewhere classified 311 [facility] [address] [facility] [id number] [address] [place] [phone] September, Depressive disorder, not els ewhere classified 311 [facility] [address] [facility] [id number] [address] [place] [phone] Aug, [facility] [address] [facility] [id number] [address] [place] [phone] Aug, [facility] [address] [facility] [id number] [address] [place] [phone] Aug, [facility] [address] [facility] [id number] [address] [place] [phone] Jul, [facility] [address] [id number] [address] [place] [address], [place] [address] Jul, [facility] [address] [id number] [address] [place] [address], [place] [address] Jun, [facility] [address] [id number] [address] [place] [address], [place] [address] Jun, [facility] [address] [id number] [address] [place] [address], [place] [address] Apr, [facility] [address] [id number] [address] [place] [address], [place] [address] Apr, [facility] [address] [id number] [address] [place] [address], [place] [address] Mar, [facility] [address] [id number] [address] [place] [address], [place] [address] Mar, [facility] [address] [id number] [address] [place] [address], [place] [address] Feb, [facility] [address] [id number] [address] [place] [address], [place] [address] Feb, [facility] [address] [id number] [address] [place] [address], [place] [address] Dec, [facility] [address] [id number] [address] [place] [address], [place] [address] Dec, [facility] [address] [id number] [address] [place] [address], [place] [address] Nov, [facility] [address] [id number] [address] [place] [address], [place] [address] Nov, [facility] [address] [id number] [address] [place] [address], [place] [address] September, [facility] [address] [id number] [address] [place] [address], [place] [address] September, [facility] [address] [id number] [address] [place] [address], [place] [address] Aug, [facility] [address] [facility] [id number] [address] [place] [phone] Apr, [facility] [address] [facility] [id number] [address] [place] [phone] Apr, [facility] [address] [facility] [id number] [address] [place] [phone] Apr, IMMUNIZATIONS No Known Immunizations SOCIAL HISTORY Never Assessed REASON FOR VISIT PLAN OF CARE VITAL SIGNS MEDICATIONS Unknown Medications RESULTS No Results PROCEDURES Procedure Date Ordered Result Body Site PSYTX PT&/FAMILY 45 MINUTES Apr 10, 2014 INSTRUCTIONS MEDICATIONS ADMINISTERED No Known Medications MEDICAL (GENERAL) HISTORY Type Description Date Medical History Diabetes-II Medical History Anxiety disorder, unspecified Medical History Mood disorder Medical History Social phobia Medical History no hx of seizures or head injuries Surgical History Tonsils removed 2002 Surgical History Blood infection 2010 Hospitalization History ER visit for boil 2018
--- OUTSIDE RECORDS SUMMARY | 2019-11-01 16:11 | XMS REPORT ---
Author Author Fiorella JOSE Organization [facility] [place] Address Unknown Care Team Providers Care Medical Transcription Name Role Phone TAMMY JOSE Unavailable PROBLEMS Type Condition ICD9-CM Code [id number] Code Onset Dates Condition S tatus SNOMED Code Problem Attention deficit disorder F90.0 Act charlette 924800372 Problem Anxiety disorder, unspecified F41.9 Active 453599149 Problem Dysthymic disorder F34.1 Active 7 0290905 Problem Type 2 diabetes mellitus wit hout complication, without long-term current use of insulin E11.9 Active 564446832 Problem Severe episode of recurrent major depressive disorder, without psychotic features F33.2 Active 22376357 Problem Social phobia F40.10 Active 944097 02 Problem Depressive disorder, not elsewhere classified F32. 9 Active 25937087 Problem Mood disorder F39 Active 549456 05 Problem Allergic rhinitis, unspecified seasonality, unspecifie d trigger J30.9 Active 96211586 ALLERGIES No Information ENCOUNTERS Encounter Location Date Diagnosis [place] [address] [place] [address] Jun, [facility] [place] [address] [address] May, [facility] [place] [address] [place] [address] May, [facility] [address] [facility] [place] [id number] May, Dental examination Z01.20 and Caries K02 .9 [place] [address] [place] [address] Apr, [facility] [place] [address] [address] Apr, Cervical radiculopathy M54.12 [place] [address] [address] Mar, Type 2 diabetes mellitus without complic ation, without long-term current use of insulin E11.9 [place] [address] [place] [address] Mar, [place] [address] [address] Mar, Trochanteric bursitis of left hip M70.62 ; Encounter for initial prescription of contraceptive pills Z30.011 and Type 2 diabetes mellitus without complication, without long-term current use of insulin E11.9 [place] [address] [address] Mar, [place] [address] [address] Feb, Left hip pain M25.552 [place] [address] [address] Feb, [place] [address] [address] Feb, [place] [address] [address] Jan, Anxiety disorder, unspecified F41.9 [place] [address] [address] Jan, High risk heterosexual behavior Z72.51 a nd Left hip pain M25.552 [facility] [id number] [place] [id number] Dec, Dental examination Z01.20 [place] [address] [address] Oct, [place] [address] [address] Oct, Severe episode of recurrent major depres sive disorder, without psychotic features F33.2 and Type 2 diabetes mellitus without complication, without long-term current use of insulin E11.9 [facility] [id number] [place] [address] Jul, [facility] [id number] [place] [address] Jul, Viral upper respiratory trac t infection J06.9 [facility] [place] [id number] [place] [address] May, Vaginal discharge N89.8 [place] [address] [address] Feb, [place] [address] [address] Feb, Dysuria R30.0 ; Sore throat J02.9 ; Timmy rgic rhinitis, unspecified seasonality, unspecified trigger J30.9 and Vaginal betzy B37.3 [place] [address] [address] 06 Jan, 2018 Cutaneous abscess of buttock L02.31 [facility] [id number] [place] [address] Oct, [place] [address] [address] Oct, [facility] [place] [address] [address] Oct, Cystitis N30.90 and Dysuria R30.0 [facility] [address] [facility] [place] [id number] 15 Oct, 2017 Dental examination Z01.20 [facility] [id number] [place] [address] May, Fever, unspecified fever cau se R50.9 and Acute nasopharyngitis J00 [facility] [place] [address] [place] [address] Dec, Mood disorder F39 [place] [address] [address] Dec, Mood disorder F39 [facility] [place] [address] [facility] [place] [address] Jul, Depressive disorder, not elsewhere class ified F32.9 and Social phobia F40.10 [facility] [address] [facility] [place] [id number] Jul, Encounter for dental examination Z01.20 [facility] [place] [id number] [place] [address] Jan, Depressive disorder, not elsewhere class ified 311 ; Anxiety state, unspecified 300.00 and Attention deficit disorder without mention of hyperactivity 314.00 [facility] [place] [address] [place] [address] Jan, Depressive disorder, not elsewhere class ified 311 ; Anxiety state, unspecified 300.00 and Attention deficit disorder without mention of hyperactivity 314.00 [facility] [place] [address] [place] [address] Oct, Depressive disorder, not elsewhere class ified 311 [facility] [place] [address] [place] [address] September, Depressive disorder, not elsewhere class ified 311 [facility] [place] [address] [place] [address] Aug, [facility] [place] [address] [place] [address] Aug, [facility] [place] [address] [place] [address] Aug, [facility] [place] [address] [address] Jul, [facility] [place] [address] [address] Jul, [facility] [place] [address] [address] Jun, [facility] [place] [address] [address] Jun, [facility] [place] [address] [facility] [place] [address] Apr, [facility] [place] [id number] [place] [address] Apr, [facility] [place] [id number] [place] [address] Mar, [facility] [place] [id number] [place] [address] Mar, [facility] [place] [id number] [place] [address] Feb, [facility] [place] [id number] [place] [address] Feb, [facility] [place] [id number] [place] [address] Dec, [facility] [place] [id number] [place] [address] Dec, [facility] [place] [id number] [place] [address] Nov, [facility] [place] [id number] [place] [address] Nov, [facility] [place] [id number] [place] [address] September, [facility] [place] [id number] [place] [address] September, [facility] [place] [id number] [place] [address] Aug, [facility] [place] [id number] [place] [address] Apr, [facility] [place] [id number] [place] [address] Apr, [facility] [place] [address] [id number] [place] [address] Apr, IMMUNIZATIONS No Known Immunizations SOCIAL HISTORY Never Assessed REASON FOR VISIT PLAN OF CARE VITAL SIGNS MEDICATIONS Unknown Medications RESULTS No Results PROCEDURES Procedure Date Ordered Result Body Site PSYCH DIAGNOSTIC EVALUATION October 10, 2013 INSTRUCTIONS MEDICATIONS ADMINISTERED No Known Medications MEDICAL (GENERAL) HISTORY Type Description Date Medical History Diabetes-II Medical History Anxiety disorder, unspecified Medical History Mood disorder Medical History Social phobia Medical History no hx of seizures or head injuries Surgical History Tonsils removed 2002 Surgical History Blood infection 2010 Hospitalization History ER visit for boil 2018
--- OUTSIDE RECORDS SUMMARY | 2019-11-01 16:11 | XMS REPORT ---
Author Author Fiorella AGUERO [facility] Address [address] [place] [address] Care Team Providers Care Electronics Specialist Name Role Phone MORE, CHAPIS Unavailable PROBLEMS Type Condition ICD9-CM Code [id number] Code Onset Dates Condition S tatus SNOMED Code Problem Attention deficit disorder F90.0 Act charlette [id number] Problem Anxiety disorder, unspecified F41.9 Active 244615530 Problem Dysthymic disorder F34.1 Active 7 1383397 Problem Type 2 diabetes mellitus wit hout complication, without long-term current use of insulin E11.9 Active 033112676 Problem Severe episode of recurrent major depressive disorder, without psychotic features F33.2 Active 70943866 Problem Social phobia F40.10 Active 498739 02 Problem Depressive disorder, not elsewhere classified F32. 9 Active 22645096 Problem Mood disorder F39 Active 468876 05 Problem Allergic rhinitis, unspecified seasonality, unspecifie d trigger J30.9 Active 74875604 ALLERGIES Substance Reaction Event Type Date Status Rocephin Unknown Drug Allergy Jul, Active ENCOUNTERS Encounter Location Date Diagnosis [facility] [address] [facility] [id number] [address] [place] [id number] Dec, [facility] [id number] [place] [address] Oct, [facility] [id number] [place] [address] Oct, Severe episode of recurrent major depressive disorder, without psychotic features F33.2 and Type 2 diabetes mellitus without complication, without long-term current use of insulin E11.9 [facility] [address] [facility] [id number] [address] [place] [address] Jul, [facility] [id number] [place] [address] Jul, Viral upper respiratory trac t infection J06.9 [facility] [address] [address] May, Vaginal discharge N89.8 [facility] [id number] [place] [address] Feb, [facility] [address] [address] Feb, Dysuria R30.0 ; Sore throat J02.9 ; Allergic rhinitis, unspecified seasonality, unspecified trigger J30.9 and Vaginal betzy B37.3 [place] [id number] [place] [address] 06 Jan, 2018 Cutaneous abscess of buttock L02.31 [facility] [address] [address] Oct, [facility] [id number] [place] [address] Oct, [place] [address] [address] Oct, Cystitis N30.90 and Dysuria R30.0 [facility] [id number] [place] [id number] Oct, Dental examination Z01.20 [facility] [address] [place] [address] May, Fever, unspecified fever cau se R50.9 and Acute nasopharyngitis J00 [facility] [id number] [place] [address] Dec, Mood disorder F39 [facility] [id number] [place] [address] Dec, Mood disorder F39 [facility] [id number] [place] [address] Jul, Depressive disorder, not els ewhere classified F32.9 and Social phobia F40.10 [facility] [address] [id number] [address] [place] [id number] Jul, Encounter for dental examina tion Z01.20 [facility] [address] [id number] [address] [place] [address] Jan, Depressive disorder, not els ewhere classified 311 ; Anxiety state, unspecified 300.00 and Attention deficit disorder without mention of hyperactivity 314.00 [facility] [address] [id number] [address] [place] [address] Jan, Depressive disorder, not els ewhere classified 311 ; Anxiety state, unspecified 300.00 and Attention deficit disorder without mention of hyperactivity 314.00 [facility] [address] [id number] [address] [place] [address] Oct, Depressive disorder, not els ewhere classified 311 [facility] [address] [id number] [address] [place] [address] September, Depressive disorder, not els ewhere classified 311 [facility] [address] [id number] [address] [place] [address] Aug, [facility] [address] [id number] [address] [place] [address] Aug, [facility] [address] [id number] [address] [place] [address] Aug, [facility] [address] [id number] [address] [place] [address] Jul, [facility] [address] [id number] [address] [place] [address] Jul, [facility] [address] [id number] [address] [place] [address] Jun, [facility] [address] [id number] [address] [place] [address] Jun, [facility] [address] [id number] [address] [place] [address], [place] [address] Apr, [facility] [address] [id number] [address] [place] [address], [place] [address] Apr, [facility] [address] [id number] [address] [place] [address], [place] [address] Mar, [facility] [address] [id number] [address] [place] [address], [place] [address] Mar, [facility] [address] [id number] [address] [place] [address], [place] [address] Feb, [facility] [address] [id number] [address] [place] [address], [place] [address] Feb, [facility] [address] [id number] [address] [place] [address], [place] [address] Dec, [facility] [address] [id number] [address] [place] [address], [place] [address] Dec, [facility] [address] [id number] [address] [place] [address], [place] [address] Nov, [facility] [address] [id number] [address] [place] [address], [place] [address] Nov, [facility] [address] [id number] [address] [place] [address], [place] [address] September, [facility] [address] [id number] [address] [place] [address], [place] [address] September, [facility] [address] [id number] [address] [place] [address], [place] [address] Aug, [facility] [address] [id number] [address] [place] [address], [place] [address] Apr, [facility] [address] [id number] [address] [place] [address], [place] [address] Apr, [facility] [address] [id number] [address] [place] [address] Apr, IMMUNIZATIONS No Known Immunizations SOCIAL HISTORY Never Assessed REASON FOR VISIT Sore throat, ear pain. Started three days ago. -Gigi SHIPMAN PLAN OF CARE Activity Details Follow Up if not improving with PCP or reg follow up Reason: VITAL SIGNS Height 64 in 2018-07-30 Weight 199 lbs 2018-07-30 Temperature 98.6 degrees Fahrenheit 2018-07-30 Heart Rate 80 bpm 2018-07-30 Respiratory Rate 20 2018-07-30 BMI 34.15 kg/m2 2018-07-30 Blood pressure systolic 114 mmHg 2018-07-30 Blood pressure diastolic 86 mmHg 2018-07-30 MEDICATIONS Medication Instructions Dosage Frequency Start Date End Date Duration S david Daugherty Perles 100 mg Orally Three times a day 1 capsule as needed 8h Jul, 10 days Active RESULTS No Results PROCEDURES No Known procedures INSTRUCTIONS MEDICATIONS ADMINISTERED No Known Medications MEDICAL (GENERAL) HISTORY Type Description Date Medical History Diabetes-II Surgical History Tonsils removed 2002 Surgical History Blood infection 2010 Hospitalization History ER visit for boil 2018
--- OUTSIDE RECORDS SUMMARY | 2019-11-01 16:11 | XMS REPORT ---
Author Author Fiorella CHRISTIAN Organization [facility] Address [address] [place] [address] Care Team Providers Care Presbyterian Clergy Name Role Phone ANAHI NERY Unavailable PROBLEMS Type Condition ICD9-CM Code [id number] Code Onset Dates Condition S tatus SNOMED Code Problem Attention deficit disorder F90.0 Act charlette [id number] Problem Anxiety disorder, unspecified F41.9 Active 911767704 Problem Dysthymic disorder F34.1 Active 7 8436205 Problem Type 2 diabetes mellitus wit hout complication, without long-term current use of insulin E11.9 Active 922008265 Problem Severe episode of recurrent major depressive disorder, without psychotic features F33.2 Active 62845243 Problem Social phobia F40.10 Active 431335 02 Problem Depressive disorder, not elsewhere classified F32. 9 Active 25205101 Problem Mood disorder F39 Active 726241 05 Problem Allergic rhinitis, unspecified seasonality, unspecifie d trigger J30.9 Active 54715795 ALLERGIES No Information ENCOUNTERS Encounter Location Date Diagnosis [facility] [address] [facility] [id number] [address] [place] [id number] Dec, [facility] [address] [id number] [address] [place] [address] Oct, [facility] [address] [id number] [address] [place] [address] Oct, Severe episode of recurrent major depressive disorder, without psychotic features F33.2 and Type 2 diabetes mellitus without complication, without long-term current use of insulin E11.9 [facility] [address] [id number] [address] [place] [address] Jul, [facility] [address] [id number] [address] [place] [address] 12 Mar, 2019 Viral upper respiratory trac t infection J06.9 [facility] [address] [id number] [address] [place] [address] May, Vaginal discharge N89.8 [facility] [address] [id number] [address] [place] [address] Feb, [facility] [address] [facility] [id number] [address] [place] [address] Feb, Dysuria R30.0 ; Sore throat J02.9 ; Allergic rhinitis, unspecified seasonality, unspecified trigger J30.9 and Vaginal betzy B37.3 [facility] [address] [id number] [address] [place] [address] 06 Jan, 2018 Cutaneous abscess of buttock L02.31 [facility] [address] [facility] [id number] [address] [place] [address] Oct, [facility] [address] [facility] [id number] [address] [place] [address] Oct, [facility] [address] [facility] [id number] [address] [place] [address] Oct, Cystitis N30.90 and Dysuria R30.0 [facility] [address] [id number] [address] [place] [address] [id number] 15 Oct, 2017 Dental examination Z01.20 [facility] [address] [facility] [id number] [address] [place] [address] May, Fever, unspecified fever cau se R50.9 and Acute nasopharyngitis J00 [facility] [address] [id number] [address] [place] [address] Dec, Mood disorder F39 [facility] [address] [facility] [id number] [address] [place] [address] Dec, Mood disorder F39 [facility] [address] [facility] [id number] [address] [place] [address] Jul, Depressive disorder, not els ewhere classified F32.9 and Social phobia F40.10 [facility] [address] [id number] [address] [place] [address] [id number] Jul, Encounter for dental examina tion Z01.20 [facility] [address] [id number] [address] [place] [address] 29 Jan, 2015 Depressive disorder, not els ewhere classified 311 ; Anxiety state, unspecified 300.00 and Attention deficit disorder without mention of hyperactivity 314.00 [facility] [address] [id number] [address] [place] [address] Jan, Depressive disorder, not els ewhere classified 311 ; Anxiety state, unspecified 300.00 and Attention deficit disorder without mention of hyperactivity 314.00 [facility] [address] [id number] [address] [place] [address] Oct, Depressive disorder, not els ewhere classified 311 [facility] [address] [id number] [address] [place] [address] September, Depressive disorder, not els ewhere classified 311 [facility] [address] [id number] [address] [place] [address] Aug, [facility] [address] [id number] [address] [place] [address] Aug, [facility] [address] [id number] [address] [place] [phone] Aug, [facility] [address] [id number] [address] [place] [address] Jul, [facility] [address] [id number] [address] [place] [address] Jul, [facility] [address] [id number] [address] [place] [address] Jun, [facility] [address] [id number] [address] [place] [address] Jun, [facility] [address] [id number] [address] [place] [address] Apr, [facility] [address] [id number] [address] [place] [address] Apr, [facility] [address] [id number] [address] [place] [address] Mar, [facility] [address] [id number] [address] [place] [address] Mar, [facility] [address] [id number] [address] [place] [address] Feb, [facility] [address] [id number] [address] [place] [address] Feb, [facility] [address] [id number] [address] [place] [address] Dec, [facility] [address] [id number] [address] [place] [address] Dec, [facility] [address] [id number] [address] [place] [address] Nov, [facility] [address] [id number] [address] [place] [address] Nov, [facility] [address] [id number] [address] [place] [address] September, [facility] [address] [id number] [address] [place] [address] September, [facility] [address] [id number] [address] [place] [address] Aug, [facility] [address] [id number] [address] [place] [address] Apr, [facility] [address] [id number] [address] [place] [address] Apr, [facility] [address] [id number] [address] [place] [address] Apr, IMMUNIZATIONS No Known Immunizations SOCIAL HISTORY Never Assessed REASON FOR VISIT PLAN OF CARE VITAL SIGNS MEDICATIONS Unknown Medications RESULTS No Results PROCEDURES Procedure Date Ordered Result Body Site PSYTX PT&/FAMILY 45 MINUTES Jul 07, 2014 INSTRUCTIONS MEDICATIONS ADMINISTERED No Known Medications MEDICAL (GENERAL) HISTORY Type Description Date Medical History Diabetes-II Surgical History Tonsils removed 2002 Surgical History Blood infection 2010 Hospitalization History ER visit for boil 2018
--- OUTSIDE RECORDS SUMMARY | 2019-11-01 16:11 | XMS REPORT ---
Author Author Fiorella CHRISTIAN Organization [facility] Address [address] [place] [address] Care Team Providers Care Investment Accounting Clerk Name Role Phone NERY CHRISTIAN Unavailable PROBLEMS Type Condition ICD9-CM Code [id number] Code Onset Dates Condition S tatus SNOMED Code Problem Attention deficit disorder F90.0 Act charlette [id number] Problem Anxiety disorder, unspecified F41.9 Active 470077239 Problem Dysthymic disorder F34.1 Active 7 3607011 Problem Type 2 diabetes mellitus wit hout complication, without long-term current use of insulin E11.9 Active 615672026 Problem Severe episode of recurrent major depressive disorder, without psychotic features F33.2 Active 85755390 Problem Social phobia F40.10 Active 496275 02 Problem Depressive disorder, not elsewhere classified F32. 9 Active 82882493 Problem Mood disorder F39 Active 477064 05 Problem Allergic rhinitis, unspecified seasonality, unspecifie d trigger J30.9 Active 80477034 ALLERGIES No Information ENCOUNTERS Encounter Location Date Diagnosis [facility] [address] [facility] [place] [id number] May, Dental examination Z01.20 and Caries K02 .9 [place] [address] [id number] [place] [address] Apr, [facility] [address] [address] Apr, Cervical radiculopathy M54.12 [facility] [address] [id number] [place] [address] Mar, Type 2 diabetes mellitus without complic ation, without long-term current use of insulin E11.9 [facility] [address] [id number] [place] [address] Mar, [place] [address] [address] Mar, Trochanteric bursitis of left hip M70.62 ; Encounter for initial prescription of contraceptive pills Z30.011 and Type 2 diabetes mellitus without complication, without long-term current use of insulin E11.9 [place] [address] [address] Mar, [place] [address] [address] Feb, Left hip pain M25.552 [place] [address] [address] Feb, [place] [address] [address] Feb, [place] [address] [address] Jan, Anxiety disorder, unspecified F41.9 [place] [address] [address] Jan, High risk heterosexual behavior Z72.51 a nd Left hip pain M25.552 [facility] [address] [facility] [place] [id number] Dec, Dental examination Z01.20 [place] [address] [id number] [place] [address] Oct, [place] [address] [address] Oct, Severe episode of recurrent major depres sive disorder, without psychotic features F33.2 and Type 2 diabetes mellitus without complication, without long-term current use of insulin E11.9 [facility] N [facility] [id number] [address] [place] [address] Jul, [facility] [address] [facility] [id number] [address] [place] [address] Jul, Viral upper respiratory trac t infection J06.9 [place] [address] [address] May, Vaginal discharge N89.8 [place] [address] [address] Feb, [place] [address] [place] [id number] Feb, Dysuria R30.0 ; Sore throat J02.9 ; Timmy rgic rhinitis, unspecified seasonality, unspecified trigger J30.9 and Vaginal betzy B37.3 [place] [address] [address] 06 Jan, 2018 Cutaneous abscess of buttock L02.31 [facility] [place] [address] [address] Oct, [place] [address] [address] Oct, [place] [address] [address] Oct, Cystitis N30.90 and Dysuria R30.0 [facility] [address] [id number] Oct, Dental examination Z01.20 [facility] [place] [address] [address] May, Fever, unspecified fever cau se R50.9 and Acute nasopharyngitis J00 [place] [address] [address] Dec, Mood disorder F39 [place] [address] [address] Dec, Mood disorder F39 [place] [address] [address] Jul, Depressive disorder, not elsewhere class ified F32.9 and Social phobia F40.10 [facility] [address] [id number] Jul, Encounter for dental examination Z01.20 [facility] [address] [facility] [place] [address] Jan, Depressive disorder, not elsewhere class ified 311 ; Anxiety state, unspecified 300.00 and Attention deficit disorder without mention of hyperactivity 314.00 [facility] [id number] [place] [address] Jan, Depressive disorder, not elsewhere class ified 311 ; Anxiety state, unspecified 300.00 and Attention deficit disorder without mention of hyperactivity 314.00 [facility] [id number] [place] [address] Oct, Depressive disorder, not elsewhere class ified 311 [facility] [id number] [place] [address] September, Depressive disorder, not elsewhere class ified 311 [facility] [id number] [place] [address] Aug, [facility] [id number] [place] [address] Aug, [facility] [id number] [place] [address] Aug, [facility] [address] [address] Jul, [facility] [id number] [place] [address] Jul, [facility] [id number] [place] [address] Jun, [facility] [id number] [place] [address] Jun, [facility] [address] [address] Apr, [facility] [id number] [place] [address] Apr, [facility] [address] [address] Mar, [facility] [address] [facility] [place] [address] Mar, [facility] [address] [facility] [place] [address] Feb, [facility] [address] [facility] [place] [address] Feb, [facility] [id number] [place] [address] Dec, [facility] [address] [facility] [place] [address] Dec, [facility] [id number] [place] [address] Nov, [facility] [address] [facility] [place] [address] Nov, [facility] [id number] [place] [address] September, [facility] [address] [facility] [place] [address] September, [facility] [id number] [place] [address] Aug, [facility] [address] [facility] [place] [address] Apr, [facility] [address] [facility] [place] [address] Apr, [facility] [address] [facility] [place] [address] Apr, IMMUNIZATIONS No Known Immunizations SOCIAL HISTORY Never Assessed REASON FOR VISIT PLAN OF CARE VITAL SIGNS MEDICATIONS No Known Medications RESULTS No Results PROCEDURES No Known [...]
--- OUTSIDE RECORDS SUMMARY | 2019-11-01 16:11 | XMS REPORT ---
Author Author Bart, Fiorella Doctor Organization [facility] Address Unknown Phone Unavailable Care Team Providers Care Cracking Machine Operator Name Role Phone Migration, Doctor Unavailable Unavailable PROBLEMS Type Condition ICD9-CM Code [id number] Code Onset Dates Condition S tatus SNOMED Code Problem Attention deficit disorder F90.0 Act charlette 855330365 Problem Mood disorder F39 Active 862980 05 Problem Allergic rhinitis, unspecified seasonality, unspecifie d trigger J30.9 Active 21761511 Problem Anxiety disorder, unspecified F41.9 Active 104379863 Problem Dysthymic disorder F34.1 Active 7 1602451 Problem Social phobia F40.10 Active 906365 02 Problem Depressive disorder, not elsewhere classified F32. 9 Active 83559153 ALLERGIES No Information ENCOUNTERS Encounter Location Date Diagnosis [facility] [address] [id number] [address] [place] [address] Jul, [facility] [address] [id number] [address] [place] [address] Jul, Viral upper respiratory trac t infection J06.9 [facility] [address] [id number] [address] [place] [address] May, Vaginal discharge N89.8 [place] [address] [place] [address] [id number] [address] [place] [address] Feb, [place] [address] [place] [id number] [address] [place] [address] Feb, Dysuria R30.0 ; Sore throat J02.9 ; Allergic rhinitis, unspecified seasonality, unspecified trigger J30.9 and Vaginal betzy B37.3 [facility] [address] [id number] [address] [place] [address] 06 Jan, 2018 Cutaneous abscess of buttock L02.31 [facility] [address] [address] [id number] [address] [place] [address] Oct, [facility] [address] [id number] [address] [place] [address] Oct, [facility] [address] [id number] [address] [place] [address] Oct, Cystitis N30.90 and Dysuria R30.0 [facility] [address] [id number] [address] [place] [id number] Oct, Dental examination Z01.20 [facility] [address] [id number] [address] [place] [address] May, Fever, unspecified fever cau se R50.9 and Acute nasopharyngitis J00 [facility] [address] [id number] [address] [place] [address] Dec, Mood disorder F39 [facility] [address] [id number] [address] [place] [address] Dec, Mood disorder F39 [facility] [address] [facility] [id number] [address] [place] [address] Jul, Depressive disorder, not els ewhere classified F32.9 and Social phobia F40.10 [facility] [address] [id number] [address] [place] [id number] Jul, Encounter for dental examina tion Z01.20 [facility] [address] [id number] [address] [place] [address] Jan, Depressive disorder, not els ewhere classified 311 ; Anxiety state, unspecified 300.00 and Attention deficit disorder without mention of hyperactivity 314.00 [facility] [address] [facility] [facility] [id number] [address] [place] [address] Jan, Depressive disorder, not els ewhere classified 311 ; Anxiety state, unspecified 300.00 and Attention deficit disorder without mention of hyperactivity 314.00 [facility] [address] [facility] [facility] [id number] [address] [place] [address] Oct, Depressive disorder, not els ewhere classified 311 [facility] [address] [id number] [address] [place] [address], [place] [address] September, Depressive disorder, not els ewhere classified 311 [facility] [address] [id number] [address] [place] [address], [place] [address] Aug, [facility] [address] [id number] [address] [place] [address], [place] [address] Aug, [facility] [address] [id number] [address] [place] [address], [place] [address] Aug, [facility] [address] [id number] [address] [place] [address], [place] [address] Jul, [facility] [address] [id number] [address] [place] [address], [place] [address] Jul, [facility] [address] [id number] [address] [place] [address], [place] [address] Jun, [facility] [address] [id number] [address] [place] [address], [place] [address] Jun, [facility] [address] [id number] [address] [place] [address], [place] [address] Apr, [facility] [address] [id number] [address] [place] [address] Apr, [facility] [address] [id number] [address] [place] [address], [place] [address] Mar, [facility] [address] [id number] [address] [place] [address] Mar, [facility] [address] [id number] [address] [place] [address], [place] [address] Feb, [facility] [address] [id number] [address] [place] [address] Feb, [facility] [address] [id number] [address] [place] [address] Dec, [facility] [address] [id number] [address] [place] [address] Dec, [facility] [address] [id number] [address] [place] [address] Nov, [facility] [address] [id number] [address] [place] [address] Nov, [facility] [address] [id number] [address] [place] [address] September, [facility] [address] [id number] [address] [place] [address] September, [facility] [address] [id number] [address] [place] [address] Aug, [facility] [address] [id number] [address] [place] [address] Apr, [facility] [address] [id number] [address] [place] [id number] Apr, [facility] [address] [id number] [address] [place] [id number] Apr, IMMUNIZATIONS No Known Immunizations SOCIAL HISTORY Never Assessed REASON FOR VISIT [facility] PLAN OF CARE VITAL SIGNS MEDICATIONS Medication Instructions Dosage Frequency Start Date End Date Duration S tatus Bentyl 10 mg 1 Capsule by Oral route 2 times per day PRN for tomach cramping Jul, Active Zofran ODT 8 mg 1 tablet by Oral route every 8 hours P RN nausea or vomiting Jul, Active Invokana by oral route Jul, Acti ve Kombiglyze XR by oral route Jul, Active RESULTS No Results PROCEDURES No Known procedures INSTRUCTIONS MEDICATIONS ADMINISTERED No Known Medications MEDICAL (GENERAL) HISTORY Type Description Date Medical History Diabetes-II Surgical History Tonsils removed 2002 Surgical History Blood infection 2010 Hospitalization History ER visit for boil 2018
--- OUTSIDE RECORDS SUMMARY | 2019-11-01 16:12 | XMS REPORT ---
Author Author Joycelyn MOBLEYlyn CALVIN [facility] Address [address] [place] [address] Care Team Providers Care Roll Clamp Operator Name Role Phone CALVIN MOBLEY Unavailable PROBLEMS Type Condition ICD9-CM Code [id number] Code Onset Dates Condition S tatus SNOMED Code Problem Attention deficit disorder F90.0 Act charlette [id number] Problem Mood disorder F39 Active 012249 05 Problem Depressive disorder, not elsewhere classified F32. 9 Active 00556291 Problem Dysthymic disorder F34.1 Active 7 9775712 Problem Anxiety disorder, unspecified F41.9 Active 671174392 Problem Social phobia F40.10 Active 565310 02 Problem Other and unspecified noninfectious gastroenteritis an d colitis 558.9 Active 39674450 ALLERGIES Substance Reaction Event Type Date Status Rocephin Unknown Drug Allergy Jan, Active ENCOUNTERS Encounter Location Date Diagnosis [facility] [address] [id number] Jan, Cutaneous abscess of buttock L02.31 [facility] [id number] [place] [phone] Oct, [facility] [id number] [place] [phone] Oct, [facility] [address] [id number] [address] [place] [phone] Oct, Cystitis N30.90 and Dysuria R30.0 [facility] [address] [id number] [address] [place] [id number] Oct, Dental examination Z01.20 [facility] [address] [id number] [address] [place] [phone] May, Fever, unspecified fever cau se R50.9 and Acute nasopharyngitis J00 [facility] [address] [id number] [address] [place] [phone] Dec, Mood disorder F39 [facility] [address] [id number] [address] [place] [id number] Dec, Mood disorder F39 [facility] [address] [id number] [address] [place] [phone] Jul, Depressive disorder, not els ewhere classified F32.9 and Social phobia F40.10 [facility] [address] [id number] [address] [place] [id number] Jul, Encounter for dental examina tion Z01.20 [facility] [address] [facility] [id number] [address] [place] [phone] Jan, Depressive disorder, not els ewhere classified 311 ; Anxiety state, unspecified 300.00 and Attention deficit disorder without mention of hyperactivity 314.00 [facility] [address] [facility] [id number] [address] [place] [phone] Jan, Depressive disorder, not els ewhere classified 311 ; Anxiety state, unspecified 300.00 and Attention deficit disorder without mention of hyperactivity 314.00 [facility] [address] [facility] [id number] [address] [place] [phone] Oct, Depressive disorder, not els ewhere classified 311 [facility] [address] [facility] [id number] [address] [place] [phone] September, Depressive disorder, not els ewhere classified 311 [facility] [address] [id number] [address] [place] [phone] Aug, [facility] [address] [facility] [id number] [address] [place] [phone] Aug, [facility] [address] [facility] [id number] [address] [place] [phone] Aug, [facility] [address] [facility] [id number] [address] [place] [phone] Jul, [facility] [address] [id number] [address] [place] [address], [place] [address] Jul, [facility] [place] [facility] [address] [id number] [address] [place] [address], [place] [phone] Jun, [facility] [place] [facility] [address] [id number] [address] [place] [address], [place] [address] Jun, [facility] [place] [facility] [address] [id number] [address] [place] [address], [place] [address] Apr, [facility] [place] [facility] [address] [id number] [address] [place] [address], [place] [address] Apr, [facility] [place] [facility] [address] [id number] [address] [place] [address], [place] [phone] Mar, [facility] [place] [facility] [address] [id number] [address] [place] [address], [place] [id number] Mar, [facility] [place] [facility] [address] [id number] [address] [place] [address], [place] [phone] Feb, [facility] [address] [id number] [address] [place] [address], [place] [phone] Feb, [facility] [place] [facility] [address] [id number] [address] [place] [address], [place] [address] Dec, [facility] [address] [id number] [address] [place] [address], [place] [id number] Dec, [facility] [place] [facility] [address] [id number] [address] [place] [address], [place] [address] Nov, [facility] [place] [facility] [address] [id number] [address] [place] [address], [place] [address] Nov, [facility] [place] [facility] [address] [id number] [address] [place] [address], [place] [address] September, [facility] [place] [facility] [address] [id number] [address] [place] [address], [place] [address] September, [facility] [place] [facility] [address] [id number] [address] [place] [phone] Aug, [facility] [address] [facility] [id number] [address] [place] [phone] Apr, [facility] [address] [facility] [id number] [address] [place] [phone] Apr, [facility] [address] [facility] [id number] [address] [place] [phone] Apr, IMMUNIZATIONS No Known Immunizations SOCIAL HISTORY Never Assessed REASON FOR VISIT boil on buttock. Pt states that she went to the ER on 12/20/17 and was told she valencia d a boil on her buttock, they drained the boil and told pt she needed to come in to see us for a follow up to see how it is doing. UMBERTO Hodges PLAN OF CARE Activity Details Follow Up prn Reason: VITAL SIGNS Height 64 in 2018-01-24 Weight 208.6 lbs 2018-01-24 Temperature 97.9 degrees Fahrenheit 2018-01-24 Heart Rate 82 bpm 2018-01-24 Respiratory Rate 18 2018-01-24 BMI 35.80 kg/m2 2018-01-24 Blood pressure systolic 124 mmHg 2018-01-24 Blood pressure diastolic 82 mmHg 2018-01-24 MEDICATIONS Medication Instructions Dosage Frequency Start Date End Date Duration S david Bactrim DS 800-160 MG Orally 2 times a day 1 tablet 12h 03 A ug, 2017Jan, Active RESULTS No Results PROCEDURES No Known procedures INSTRUCTIONS MEDICATIONS ADMINISTERED No Known Medications MEDICAL (GENERAL) HISTORY Type Description Date Medical History Diabetes-II Surgical History Tonsils removed 2002 Surgical History Blood infection 2010
--- OUTSIDE RECORDS SUMMARY | 2019-11-01 16:12 | XMS REPORT | Continuity of Care Document ---
Author Organization Unknown Address Unknown Phone Unavailable Allergies Active Description Code Type Severity Reaction Onset Reported/Identified Relationship to Patient Clinical Status Yes Rocephin Drug Allergy 06/11/2008 Yes Rocephin Drug Allergy N/A N/A 06/11/2008 Yes ceftriaxone [id number] Drug Aller gy Mild HIVES 01/17/2010 Medications There is no data. Problems Date Dx Coded Attending Type Code Diagnosis Diagnosed By 05/06/2008 LISA BRUNO DO 465.9 UPPER RESPIRATORY INFECTION 05/06/2008 TAMMY JOSE LCPC 46 5.9 UPPER RESPIRATORY INFECTION 05/06/2008 [facility] PSYD 465.9 UPPER RESPIRATORY INFECTION 05/06/2008 [facility] PSYD L 465.9 UPPER RESPIRATORY INFECTION 05/06/2008 [facility], NERY R 465.9 UPPER RESPIRATORY INFECTION 05/06/2008 [facility], NERY R 465.9 UPPER RESPIRATORY INFECTION 05/06/2008 ANA ROSA BENNETT APRN 465.9 UPPER RESPIRATORY INFECTION 05/06/2008 [facility], NERY R 465.9 UPPER RESPIRATORY INFECTION 06/11/2008 LISA BRUNO DO 278.00 OBESITY 06/11/2008 LISA BRUNO DO 381.81 EUSTACHIAN TUBE DYSFUNCTION 06/11/2008 LISA BRUNO DO 788.1 pain during urination (dysuria) 06/11/2008 TAMMY JOSE LCPC 278.00 OBESITY 06/11/2008 TAMMY JOSE LCPC 381.81 EUSTACHIAN TUBE DYSFUNCTION 06/11/2008 TAMMY JOSE LCPC B 78 8.1 pain during urination (dysuria) 06/11/2008 [facility] PSYD L 278.00 OBESITY 06/11/2008 [facility] PSYD 381.81 EUSTACHIAN TUBE DYSFUNCTION 06/11/2008 [facility] PSYD 788.1 pain during urination (dysuria) 06/11/2008 [facility] ANN L 278.00 OBESITY 06/11/2008 [facility] PSYD [...] R 788.1 pain during urination (dysuria) 06/11/2008 RAJOTTE WATER QUALITY MANAGER, ANA ROSA A 278.00 OBESITY 06/11/2008 RAJOTTE WATER QUALITY MANAGER, ANA ROSA A 381.81 EUSTACHIAN TUBE DYSFUNCTION 06/11/2008 RAJOTTE WATER QUALITY MANAGER, ANA ROSA A 788.1 pain during urination (dysuria) 06/11/2008 [facility], NERY R 278.00 OBESITY 06/11/2008 [facility], NERY R 381.81 EUSTACHIAN TUBE DYSFUNCTION 06/11/2008 [facility], NERY R 788.1 pain during urination (dysuria) 01/17/2010 Ot 599.0 URIN TRACT INFECTION NOS 01/17/[address] PAIN NOS 01/17/2010 Ot 786.52 CHICA NFUL RESPIRATION 05/25/[address] PAIN NOS 05/25/2010 Ot 786.52 CHICA NFUL RESPIRATION 06/12/2010 Ot 250.00 PEÑA B RENE WO COMPL, TYPE II OR UNSPEC TY 06/12/2010 Ot 465.9 ACUT E URI NOS 06/12/2010 Ot 780.60 FEV ER, UNSPECIFIED 06/12/2010 Ot V58.69 OTH MED,LT,CURRENT USE 05/28/2012 Ot 250.02 PEÑA B RENE WO COMPL, TYPE II OR UNSPEC TY 05/28/2012 Ot 278.00 OBE SITY, NOS 05/28/2012 Ot 462 ACUTE PHARYNGITIS 05/28/2012 Ot 493.00 EXT RINSIC ASTHMA, NOS 05/28/2012 Ot 682.2 CELL ULITIS OF TRUNK 05/28/2012 Ot 785.0 TACH YCARDIA NOS 05/28/2012 Ot V12.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 05/28/2012 Ot V12.29 PER MIHAELA HX OF OTH ENDOCRINE, METABOLIC 05/28/2012 Ot V15.81 HX OF PAST NONCOMPLIANCE 10/10/2013 TAMMY JOSE LCPC 31 1 DEPRESSIVE DISORDER NOS 10/10/2013 [facility] ANN L 311 DEPRESSIVE DISORDER NOS 10/10/2013 [facility] L 311 DEPRESSIVE DISORDER NOS 10/10/2013 [facility], NERY R 311 DEPRESSIVE DISORDER NOS 10/10/2013 [facility] NERY [facility] 311 DEPRESSIVE DISORDER NOS 10/10/2013 ANA ROSA BENNETT APRN A 311 DEPRESSIVE DISORDER NOS 10/10/2013 [facility], NERY R 311 DEPRESSIVE DISORDER NOS 07/31/2014 ANA ROSA BENNETT APRN A 558.9 GASTROENTERITIS NONINFECTIOUS 07/31/2014 [facility], NERY R 558.9 GASTROENTERITIS NONINFECTIOUS 07/29/2015 Ot 789.00 07/29/2015 Ot 789.00 08/10/2015 KRIS YEE WATER QUALITY MANAGER Ot M25.561 08/10/2015 KRIS YEE WATER QUALITY MANAGER Ot M25.562 10/19/2015 TIERRA AHRRISON DO S Ot R10.32 LEFT LOWER QUADRANT PAIN 10/20/2015 TIERRA HARRISON DO S Ot R10.32 LEFT LOWER QUADRANT [...] OF METHICILLIN RESIS ST 10/26/2015 Ot R10.2 PELV IC AND PERINEAL PAIN 10/27/2015 KIERSTEN MAR DO [...] PERSONAL HISTORY OF METHICILLIN RESIS ST 10/29/2015 LILLIAMFRANKLYN FREGOSOTIERRA S Ot R10.32 LEFT LOWER QUADRANT PAIN 07/25/2016 Ot 789.00 ABD OMINAL PAIN, UNSPECIFIED SITE 07/25/2016 KRIS YEE WATER QUALITY MANAGER Ot M25.561 PAIN IN RIGHT KNEE 07/25/2016 KRIS YEE WATER QUALITY MANAGER Ot M25.562 PAIN IN LEFT KNEE 07/25/2016 Ot R10.2 PELV IC AND PERINEAL PAIN 07/25/2016 DANESHANDA TIERRA FREGOSO S Ot R10.32 LEFT LOWER QUADRANT PAIN 07/25/2016 TYLER YA APRN Ot F17.210 NICOTINE DEPENDENCE, CIGARETTES, UNCOMPL 07/25/2016 TYLER YA APRN Ot J02 .9 ACUTE PHARYNGITIS, UNSPECIFIED 07/25/2016 TYLER YA APRN Ot J06 .9 ACUTE UPPER RESPIRATORY INFECTION, UNSPE 07/26/2016 TYLER YA WATER QUALITY MANAGER Ot F17.210 NICOTINE DEPENDENCE, CIGARETTES, UNCOMPL 07/26/2016 TYLER YA APRN Ot J02 .9 ACUTE PHARYNGITIS, UNSPECIFIED 07/26/2016 TYLER YA WATER QUALITY MANAGER Ot J06 .9 ACUTE UPPER RESPIRATORY INFECTION, UNSPE 08/02/2016 Ot 789.00 ABD OMINAL PAIN, UNSPECIFIED SITE 08/02/2016 KRIS YEE WATER QUALITY MANAGER Ot M25.561 PAIN IN RIGHT KNEE 08/02/2016 KRIS YEE WATER QUALITY MANAGER Ot M25.562 PAIN IN LEFT KNEE 08/02/2016 Ot R10.2 PELV IC AND PERINEAL PAIN 08/02/2016 TIERRA HARRISON DO S Ot R10.32 LEFT LOWER QUADRANT PAIN 08/18/2016 TYLER YA APRN Ot F41 .9 ANXIETY DISORDER, UNSPECIFIED 08/18/2016 TYLER YA WATER QUALITY MANAGER Ot L02.215 CUTANEOUS ABSCESS OF PERINEUM 08/21/2016 TYLER YA WATER QUALITY MANAGER Ot F41 .9 ANXIETY DISORDER, UNSPECIFIED 08/21/2016 TYLER YA WATER QUALITY MANAGER Ot L02.215 CUTANEOUS ABSCESS OF PERINEUM 08/23/2016 TYLER YA APRN Ot L02.215 CUTANEOUS ABSCESS OF PERINEUM 08/23/2016 TYLER YA APRN Ot R00 .0 TACHYCARDIA, UNSPECIFIED 08/24/2016 TYLER YA APRN Ot F41 .9 ANXIETY DISORDER, UNSPECIFIED 08/24/2016 TYLER YA WATER QUALITY MANAGER Ot L02.215 CUTANEOUS ABSCESS OF PERINEUM 08/30/2016 DALLIN MCNAIR MD Ot M25.561 PAIN IN RIGHT KNEE 09/07/2016 DALLIN MCNAIR MD Ot M23.8X1 OTHER INTERNAL DERANGEMENTS OF RIGHT KNE 09/07/2016 DALLIN MCNAIR MD Ot Z01.818 ENCOUNTER FOR OTHER PREPROCEDURAL EXAMIN 09/07/2016 DALLIN MCNAIR MD Ot Z11.2 ENCOUNTER FOR SCREENING FOR OTHER BACTER 11/01/2016 Ot 789.00 ABD OMINAL PAIN, UNSPECIFIED SITE 11/01/2016 KRIS YEE WATER QUALITY MANAGER Ot M25.561 PAIN IN RIGHT KNEE 11/01/2016 KRIS YEE WATER QUALITY MANAGER Ot M25.562 PAIN IN LEFT KNEE 11/01/2016 Ot R10.2 PELV IC AND PERINEAL PAIN 11/01/2016 TIERRA HARRISON DO S Ot R10.32 LEFT LOWER QUADRANT PAIN 11/01/2016 DALLIN MCNAIR MD Ot M25.561 PAIN IN RIGHT KNEE 11/18/2016 TYLER YA APRN Ot F41 .9 ANXIETY DISORDER, UNSPECIFIED 11/18/2016 TYLER YA WATER QUALITY MANAGER Ot L02.215 CUTANEOUS ABSCESS OF PERINEUM 01/20/2018 EVELIN CHRISTOPHER Ot E11.65 TYPE 2 DIABETES MELLITUS WITH HYPERGLYCE 01/20/2018 EVELIN CHRISTOPHER Ot F17.210 NICOTINE DEPENDENCE, CIGARETTES, UNCOMPL 01/20/2018 EVELIN CHRISTOPHER Ot L02.31 CUTANEOUS ABSCESS OF BUTTOCK 01/20/2018 EVELIN CHRISTOPHER Ot Z87.19 PERSONAL HISTORY OF OTHER DISEASES OF TH 01/20/2018 EVELIN CHRISTOPHER Ot Z87.440 PERSONAL HISTORY OF URINARY (TRACT) INFE 01/20/2018 EVELIN CHRISTOPHER Ot Z88.1 ALLERGY STATUS TO OTHER ANTIBIOTIC AGENT 01/20/2018 EVELIN CHRISTOPHER Ot Z90.89 ACQUIRED ABSENCE OF OTHER ORGANS 01/22/2018 KRIS YEE WATER QUALITY MANAGER Ot M25.561 PAIN IN RIGHT KNEE 01/22/2018 KRIS YEE APRN Ot M25.562 PAIN IN LEFT KNEE 01/22/2018 Ot R10.2 PELV IC AND PERINEAL PAIN 01/22/2018 TIERRA HARRISON DO S Ot R10.32 LEFT LOWER QUADRANT PAIN 01/22/2018 DALLIN MCNAIR MD Ot M25.561 PAIN IN RIGHT KNEE 01/30/2018 Ot 701.2 01/30/2018 Ot 277.7 01/30/2018 Ot 474.00 01/30/2018 Ot V72.83 01/30/2018 Ot 277.7 01/30/2018 Ot 789.00 ABD OMINAL PAIN, UNSPECIFIED SITE 01/30/2018 KRIS YEE WATER QUALITY MANAGER Ot M25.561 PAIN IN RIGHT KNEE 01/30/2018 KRIS YEE APRN Ot M25.562 PAIN IN LEFT KNEE 01/30/2018 Ot R10.2 PELV IC AND PERINEAL PAIN 01/30/2018 TIERRA HARRISON DO S Ot R10.32 LEFT LOWER QUADRANT PAIN 01/30/2018 DALLIN MCNAIR MD Ot M25.561 PAIN IN RIGHT KNEE 01/30/2018 Ot 701.2 01/30/2018 Ot 277.7 01/30/2018 Ot 474.00 01/30/2018 Ot V72.83 01/30/2018 Ot 277.7 01/30/2018 Ot 789.00 ABD OMINAL PAIN, UNSPECIFIED SITE 01/30/2018 KRIS YEE APRN Ot M25.561 PAIN IN RIGHT KNEE 01/30/2018 KRIS YEE APRN Ot M25.562 PAIN IN LEFT KNEE 01/30/2018 Ot R10.2 PELV IC AND PERINEAL PAIN 01/30/2018 TIERRA HARRISON DO S Ot R10.32 LEFT LOWER QUADRANT PAIN 01/30/2018 TABBY BONILLA, DALLIN Nino Ot M25.561 PAIN IN RIGHT KNEE 05/23/2018 KRIS YEE WATER QUALITY MANAGER Ot M25.561 PAIN IN RIGHT KNEE 05/23/2018 KRIS YEE WATER QUALITY MANAGER Ot M25.562 PAIN IN LEFT KNEE 05/23/2018 Ot R10.2 PELV IC AND PERINEAL PAIN 05/23/2018 TIERRA HARRISON DO S Ot R10.32 LEFT LOWER QUADRANT PAIN 05/23/2018 TABBY BONILLA, DALLIN Nino Ot M25.561 PAIN IN RIGHT KNEE 08/05/2018 KRIS YEE WATER QUALITY MANAGER Ot M25.561 PAIN IN RIGHT KNEE 08/05/2018 KRIS YEE APRN Ot M25.562 PAIN IN LEFT KNEE 08/05/2018 Ot R10.2 PELV IC AND PERINEAL PAIN 08/05/2018 TIERRA HARRISON DO S Ot R10.32 LEFT LOWER QUADRANT PAIN 08/05/2018 TABBY BONILLA, DALLIN Nino Ot M25.561 PAIN IN RIGHT KNEE 08/07/2018 EVELIN CHRISTOPHER Ot E11.9 TYPE 2 DIABETES MELLITUS WITHOUT COMPLIC 08/07/2018 EVELIN CHRISTOPHER Ot N39.0 URINARY TRACT INFECTION, SITE NOT SPECIF 08/07/2018 EVELIN CHRISTOPHER Ot R06.02 SHORTNESS OF BREATH 08/07/2018 EVELIN CHRISTOPHER Ot Z77.22 CNTCT W AND EXPSR TO ENVIRON TOBACCO SMO 08/07/2018 EVELIN CHRISTOPHER Ot Z87.19 PERSONAL HISTORY OF OTHER DISEASES OF TH 08/07/2018 EVELIN CHRISTOPHER Ot Z87.440 PERSONAL HISTORY OF URINARY (TRACT) INFE 08/07/2018 EVELIN CHRISTOPHER Ot Z88.1 ALLERGY STATUS TO OTHER ANTIBIOTIC AGENT 08/07/2018 EVELIN CHRISTOPHER Ot Z90.89 ACQUIRED ABSENCE OF OTHER ORGANS 08/07/2018 EVELIN CHRISTOPHER Ot Z98.890 OTHER SPECIFIED POSTPROCEDURAL STATES Procedures Code Description Performed By Per formed On 86.04 OTHE R SKIN SUBQ I D 05/24/2012 31842 PSYC H DIAGNOSTIC EVALUATION 10/10/2013 34642 PSYT X PT&/FAMILY 45 MINUTES 01/09/2014 23658 PSYT X PT&/FAMILY 30 MINUTES 02/26/2014 80551 PSYT X PT&/FAMILY 45 MINUTES 04/10/2014 70908 PSYT X PT&/FAMILY 45 MINUTES 05/01/2014 47947 PSYT X PT&/FAMILY 45 MINUTES 09/15/2014 Results Test Result Range Complete blood count (CBC) with automate d white blood cell (WBC) differential - 07/25/16 14:40 Blood leukocytes automated count (number/volume) 6.3 10*3/uL 4.3-11.0 Blood erythrocytes automated count (number/volume) 4.91 10*6/uL 4.35-5.85 Venous blood hemoglobin measurement (mass/volume) 14.8 g/dL 11.5-16.0 Blood hematocrit (volume fraction) 42 % 35-52 Automated erythrocyte mean corpuscular volume 86 [ foz_us] 80-99 Automated erythrocyte mean corpuscular h emoglobin (mass per erythrocyte) 30 pg 25-34 Automated erythrocyte mean corpuscular h emoglobin concentration measurement (mass/volume) 35 g/dL 32-36 Automated erythrocyte distribution width ratio 13. 1 % 10.0- 14.5 Automated blood platelet count (count/volume) 298 10*3/uL [...] 10*3 1.0-4.0 Blood monocytes automated count (number/volume) 0. 8 10*3 0.0-1.0 Automated eosinophil count 0.0 10*3/uL 0 .0-0.3 Automated blood basophil count (count/volume) 0.0 10*3/uL 0.0-0.1 Serum heterophile antibody titer - 07/25 14:40 Serum heterophile antibody titer NEGATIVE NEGATIVE Serum or plasma choriogonadotropin (preg shlomo test) detection - 07/25/16 14:40 Serum or plasma choriogonadotropin ( test) de tection NEGATIVE NEGATIVE Comprehensive metabolic panel - 07/25/16 14:40 Serum or plasma sodium measurement (moles/volume) 137 mmol/L 135-145 Serum or plasma potassium measurement (moles/volume) 3.9 mmol/L 3.6-5.0 Serum or plasma chloride measurement (moles/volume) 105 mmol/L 98-107 Carbon dioxide 20 mmol/L 21-32 Serum or plasma anion gap determination (moles/volume) 12 mmol/L 5-14 Serum or plasma urea nitrogen measurement (mass/volume ) 8 mg/dL 7-18 Serum or plasma creatinine measurement (mass/volume) 0.81 mg/dL 0.60-1.30 Serum or plasma urea nitrogen/creatinine mass ratio 10 NRG Serum or plasma creatinine measurement w ith calculation of estimated glomerular filtration rate > NRG Serum or plasma glucose measurement (mass/volume) 179 mg/dL 70-105 Serum or plasma calcium measurement (mass/volume) 9.0 mg/dL 8.5-10.1 Serum or plasma total bilirubin measurement (mass/volu me) 0.5 mg/dL 0.1-1.0 Serum or plasma alkaline phosphatase cristiano surement (enzymatic activity/volume) 50 U/L 60-350 Serum or plasma aspartate aminotransfera se measurement (enzymatic activity/volume) 12 U/L 5-34 Serum or plasma alanine aminotransferase measurement (enzymatic activity/volume) 15 U/L 0-55 Serum or plasma protein measurement (mass/volume) 6.9 g/dL 6.4-8.2 Serum or plasma albumin measurement (mass/volume) 4.1 g/dL 3.2-4.5 Influenza virus A and B antigen detectio n - 07/25/16 15:00 FLU RESULT NEGATIVE FOR INFLUENZA A AND B ANTIGENS BY IA NRG Gram stain microscopy - 08/18/16 22:37 GRAM STAIN RESULT FEW GRAM NEGATIVE RODS NRG Bacteria identification in wound by cult ure - 08/18/16 22:37 Bacteria identification in wound by culture [id number] NRG FREE TEXT EXTERNAL (ANAEROBIC GRAM NEGATIVE WARNER) NRG QUANTITY OF GROWTH Isolated NRG FREE TEXT ENTRY 2 SENSITIVITY IS REQUESTED ON THIS ISOLATE NRG Complete blood count (CBC) with automate d white blood cell (WBC) differential - 08/18/16 22:50 Blood leukocytes automated count (number/volume) 11.4 10*3/uL 4.3-11.0 Blood erythrocytes automated count (number/volume) 4.55 10*6/uL 4.35-5.85 Venous blood hemoglobin measurement (mass/volume) 13.8 g/dL 11.5-16.0 Blood hematocrit (volume fraction) 40 % 35-52 Automated erythrocyte mean corpuscular volume 87 [ foz_us] 80-99 Automated erythrocyte mean corpuscular h emoglobin (mass per erythrocyte) 30 pg 25-34 Automated erythrocyte mean corpuscular h emoglobin concentration measurement (mass/volume) 35 g/dL 32-36 Automated erythrocyte distribution width ratio 13. 2 % 10.0- 14.5 Automated blood platelet count (count/volume) 310 10*3/uL [...] 10*3 1.0-4.0 Blood monocytes automated count (number/volume) 0. 9 10*3 0.0-1.0 Automated eosinophil count 0.1 10*3/uL 0 .0-0.3 Automated blood basophil count (count/volume) 0.0 10*3/uL 0.0-0.1 Complete blood count (CBC) with automate d white blood cell (WBC) differential - 08/23/16 12:05 Blood leukocytes automated count (number/volume) 7.7 10*3/uL 4.3-11.0 Blood erythrocytes automated count (number/volume) 4.59 10*6/uL 4.35-5.85 Venous blood hemoglobin measurement (mass/volume) 13.8 g/dL 11.5-16.0 Blood hematocrit (volume fraction) 40 % 35-52 Automated erythrocyte mean corpuscular volume 88 [ foz_us] 80-99 Automated erythrocyte mean corpuscular h emoglobin (mass per erythrocyte) 30 pg 25-34 Automated erythrocyte mean corpuscular h emoglobin concentration measurement (mass/volume) 34 g/dL 32-36 Automated erythrocyte distribution width ratio 13. 2 % 10.0- 14.5 Automated blood platelet count (count/volume) 277 10*3/uL [...] 10*3 1.0-4.0 Blood monocytes automated count (number/volume) 0. 5 10*3 0.0-1.0 Automated eosinophil count 0.1 10*3/uL 0 .0-0.3 Automated blood basophil count (count/volume) 0.1 10*3/uL 0.0-0.1 Whole blood basic metabolic panel - 04/0 10/04 12:05 Serum or plasma sodium measurement (moles/volume) 134 mmol/L 135-145 Serum or plasma potassium measurement (moles/volume) 4.7 mmol/L 3.6-5.0 Serum or plasma chloride measurement (moles/volume) 103 mmol/L 98-107 Carbon dioxide 21 mmol/L 21-32 Serum or plasma anion gap determination (moles/volume) 10 mmol/L 5-14 Serum or plasma urea nitrogen measurement (mass/volume ) 11 mg/dL 7-18 Serum or plasma creatinine measurement (mass/volume) 0.88 mg/dL 0.60-1.30 Serum or plasma urea nitrogen/creatinine mass ratio 13 NRG Serum or plasma creatinine measurement w ith calculation of estimated glomerular filtration rate > NRG Serum or plasma glucose measurement (mass/volume) 319 mg/dL 70-105 Serum or plasma calcium measurement (mass/volume) 9.1 mg/dL 8.5-10.1 Methicillin resistant Staphylococcus aur eus (MRSA) screening culture - 09/07/16 09:16 Methicillin resistant Staphylococcus aureus (MRSA) scr eening culture NEG NRG CULTURE, URINE - 11/07/17 15:18 CULTURE, URINE, ROUTINE SEE NOTE NRG Gram stain microscopy - 01/20/18 20:20 Gram stain microscopy Mixed Bacterial Angie NRG Bacteria identification in wound by cult ure - 01/20/18 20:20 Bacteria identification in wound by culture SEE CO MMEN NRG QUANTITY OF GROWTH . NRG Complete blood count (CBC) with automate d white blood cell (WBC) differential - 01/20/18 20:45 Blood leukocytes automated count (number/volume) 11.9 10*3/uL 4.3-11.0 Blood erythrocytes automated count (number/volume) 4.33 10*6/uL 4.35-5.85 Venous blood hemoglobin measurement (mass/volume) 13.4 g/dL 11.5-16.0 Blood hematocrit (volume fraction) 37 % 35-52 Automated erythrocyte mean corpuscular volume 86 [ foz_us] 80-99 Automated erythrocyte mean corpuscular h emoglobin (mass per erythrocyte) 31 pg 25-34 Automated erythrocyte mean corpuscular h emoglobin concentration measurement (mass/volume) 36 g/dL 32-36 Automated erythrocyte distribution width ratio 12. 7 % 10.0- 14.5 Automated blood platelet count (count/volume) 341 10*3/uL 130-400 Automated blood platelet mean volume measurement 9.5 [foz_us] 7.4-10.4 Automated blood neutrophils/100 leukocytes 72 % 42-75 Automated blood lymphocytes/100 leukocytes 22 % 12-44 Blood monocytes/100 leukocytes 5 % 0-12 Automated blood eosinophils/100 leukocytes 0 % 0-10 Automated blood basophils/100 leukocytes 0 % 0-10 Blood neutrophils automated count (number/volume) 8.5 10*3 1.8-7.8 Blood lymphocytes automated count (number/volume) 2.7 10*3 1.0-4.0 Blood monocytes automated count (number/volume) 0. 6 10*3 0.0-1.0 Automated eosinophil count 0.1 10*3/uL 0 .0-0.3 Automated blood basophil count (count/volume) 0.1 10*3/uL 0.0-0.1 Blood lactic acid measurement (moles/vol ume) - 01/20/18 20:45 Blood lactic acid measurement (moles/volume) 1.24 mmol/L 0.50-2.00 Comprehensive metabolic panel - 01/20/18 20:45 Serum or plasma sodium measurement (moles/volume) 136 mmol/L 135-145 Serum or plasma potassium measurement (moles/volume) 3.9 mmol/L 3.6-5.0 Serum or plasma chloride measurement (moles/volume) 103 mmol/L 98-107 Carbon dioxide 21 mmol/L 21-32 Serum or plasma anion gap determination (moles/volume) 12 mmol/L 5-14 Serum or plasma urea nitrogen measurement (mass/volume ) 13 mg/dL 7-18 Serum or plasma creatinine measurement (mass/volume) 0.89 mg/dL 0.60-1.30 Serum or plasma urea nitrogen/creatinine mass ratio 15 NRG Serum or plasma creatinine measurement w ith calculation of estimated glomerular filtration rate > NRG Serum or plasma glucose measurement (mass/volume) 300 mg/dL 70-105 Serum or plasma calcium measurement (mass/volume) 9.2 mg/dL 8.5-10.1 Serum or plasma total bilirubin measurement (mass/volu me) 0.2 mg/dL 0.1-1.0 Serum or plasma alkaline phosphatase cristiano surement (enzymatic activity/volume) 59 U/L 40-136 Serum or plasma aspartate aminotransfera se measurement (enzymatic activity/volume) 9 U/L 5-34 Serum or plasma alanine aminotransferase measurement (enzymatic activity/volume) 13 U/L 0-55 Serum or plasma protein measurement (mass/volume) 6.4 g/dL 6.4-8.2 Serum or plasma albumin measurement (mass/volume) 4.0 g/dL 3.2-4.5 CALCIUM CORRECTED 9.2 mg/dL 8.5-10.1 Bacterial blood culture - 01/20/18 20:45 QUANTITY OF GROWTH . NRG Bacterial blood culture SEE COMMEN NRG Bacterial blood culture - 01/20/18 21:07 Bacterial blood culture NG NR Capillary blood glucose measurement by g lucometer (mass/volume) - 01/20/18 22:00 Capillary blood glucose measurement by glucometer (mas s/volume) 144 mg/dL 70-110 Complete urinalysis with reflex to cultu re - 08/04/18 18:25 Urine color determination YELLOW NRG Urine clarity determination VERY CLOUDY NRG Urine pH measurement by test strip 5 5-9 Specific gravity of urine by test strip 1.025 1.016-1.022 Urine protein assay by test strip, semi-quantitative 2+ NEGATIVE Urine glucose detection by automated test strip 4+ NEGATIVE Erythrocytes detection in urine sediment by light micr oscopy 3+ NEGATIVE Urine ketones detection by automated test strip 1+ NEGATIVE Urine nitrite detection by test strip POSITIVE NEGATIVE Urine total bilirubin detection by test strip NEGA TIVE NEGATIVE Urine urobilinogen measurement by automated test strip (mass/volume) NORMAL NORMAL Urine leukocyte esterase detection by dipstick 3+ NEGATIVE Automated urine sediment erythrocyte cou nt by microscopy (number/high power field) [HPF] NRG Automated urine sediment leukocyte count by microscopy (number/high power field) TNTC NRG Bacteria detection in urine sediment by light microsco py LARGE NRG Squamous epithelial cells detection in u rine sediment by light microscopy NONE NRG Crystals detection in urine sediment by light microsco py NONE NRG Casts detection in urine sediment by light microscopy NONE NRG Mucus detection in urine sediment by light microscopy NEGATIVE NRG Complete urinalysis with reflex to culture YES NRG Bacterial urine culture - 08/04/18 18:25 Bacterial urine culture [id number] NRG COLONY COUNT >100,000/ML NRG FTX;REPORTABLE SENSITIVITY REPORTED 08/06/18 11:05 NRG FREE TEXT ENTRY 2 ID REPORTED 08/05/18 17:05 NRG RML Sensitivity Panel - 08/04/18 18:25 Gentamicin susceptibility test by minimum inhibitory c oncentration <= NRG Trimethoprim/sulfamethoxazole susceptibi lity test by minimum inhibitoryconcentration = NRG Levofloxacin susceptibility test by minimum inhibitory concentration <= NRG Ampicillin susceptibility test by minimum inhibitory c oncentration <= NRG Cefazolin susceptibility test by minimum inhibitory co ncentration <= NRG Ceftriaxone susceptibility test by minimum inhibitory concentration <= NRG Ciprofloxacin susceptibility test by minimum inhibitor y concentration <= NRG Meropenem susceptibility test by minimum inhibitory co ncentration <= NRG Nitrofurantoin susceptibility test by mi nimum inhibitory concentration <= NRG Amoxicillin and clavulanate potassium susc BRANDON <= NRG Complete blood count (CBC) with automate d white blood cell (WBC) differential - 08/04/18 19:00 Blood leukocytes automated count (number/volume) 11.4 10*3/uL 4.3-11.0 Blood erythrocytes automated count (number/volume) 4.78 10*6/uL 4.35-5.85 Venous blood hemoglobin measurement (mass/volume) 14.6 g/dL 11.5-16.0 Blood hematocrit (volume fraction) 42 % 35-52 Automated erythrocyte mean corpuscular volume 88 [ foz_us] 80-99 Automated erythrocyte mean corpuscular h emoglobin (mass per erythrocyte) 31 pg 25-34 Automated erythrocyte mean corpuscular h emoglobin concentration measurement (mass/volume) 35 g/dL 32-36 Automated erythrocyte distribution width ratio 12. 7 % 10.0- 14.5 Automated blood platelet count (count/volume) 381 10*3/uL 130-400 Automated blood platelet mean volume measurement 9.8 [foz_us] 7.4-10.4 Automated blood neutrophils/100 leukocytes 66 % 42-75 Automated blood lymphocytes/100 leukocytes 24 % 12-44 Blood monocytes/100 leukocytes 9 % 0-12 Automated blood eosinophils/100 leukocytes 0 % 0-10 Automated blood basophils/100 leukocytes 0 % 0-10 Blood neutrophils automated count (number/volume) 7.6 10*3 1.8-7.8 Blood lymphocytes automated count (number/volume) 2.8 10*3 1.0-4.0 Blood monocytes automated count (number/volume) 1. 1 10*3 0.0-1.0 Automated eosinophil count 0.0 10*3/uL 0 .0-0.3 Automated blood basophil count (count/volume) 0.0 10*3/uL 0.0-0.1 Serum or plasma choriogonadotropin (preg shlomo test) detection - 08/04/18 19:00 Serum or plasma choriogonadotropin ( test) de tection NEGATIVE NEGATIVE Comprehensive metabolic panel - 08/04/18 19:00 Serum or plasma sodium measurement (moles/volume) 137 mmol/L 135-145 Serum or plasma potassium measurement (moles/volume) 3.6 mmol/L 3.6-5.0 Serum or plasma chloride measurement (moles/volume) 102 mmol/L 98-107 Carbon dioxide 22 mmol/L 21-32 Serum or plasma anion gap determination (moles/volume) 13 mmol/L 5-14 Serum or plasma urea nitrogen measurement (mass/volume ) 7 mg/dL 7-18 Serum or plasma creatinine measurement (mass/volume) 0.87 mg/dL 0.60-1.30 Serum or plasma urea nitrogen/creatinine mass ratio 8 NRG Serum or plasma creatinine measurement w ith calculation of estimated glomerular filtration rate > NRG Serum or plasma glucose measurement (mass/volume) 315 mg/dL 70-105 Serum or plasma calcium measurement (mass/volume) 9.6 mg/dL 8.5-10.1 Serum or plasma total bilirubin measurement (mass/volu me) 0.7 mg/dL 0.1-1.0 Serum or plasma alkaline phosphatase cristiano surement (enzymatic activity/volume) 70 U/L 40-136 Serum or plasma aspartate aminotransfera se measurement (enzymatic activity/volume) 10 U/L 5-34 Serum or plasma alanine aminotransferase measurement (enzymatic activity/volume) 16 U/L 0-55 Serum or plasma protein measurement (mass/volume) 7.1 g/dL 6.4-8.2 Serum or plasma albumin measurement (mass/volume) 4.3 g/dL 3.2-4.5 CALCIUM CORRECTED 9.4 mg/dL 8.5-10.1 Serum or plasma amylase measurement (enz ymatic activity/volume) - 08/04/18 19:00 Serum or plasma amylase measurement (enzymatic activit y/volume) 36 U/L 25-125 Lipase - 08/04/18 19:00 Lipase 18 U/L 8-78 Capillary blood glucose measurement by g lucometer (mass/volume) - 08/04/18 21:02 Capillary blood glucose measurement by glucometer (mas s/volume) 245 mg/dL 70-110 TSH w/ FREE T4 - 11/04/18 11:52 TSH 1.24 mIU/L NRG T4, FREE 1.1 ng/dL 0.8-1.4 CMP - 11/04/18 11:52 GLUCOSE 304 mg/dL 65-99 UREA NITROGEN (BUN) 12 mg/dL 7-25 CREATININE 0.76 mg/dL 0.50-1.10 eGFR NON-AFR. VINCENTIAN 113 mL/min/1.73m2 > OR = 60 eGFR 131 mL/min/1.73m2 > OR = 60 BUN/CREATININE RATIO NOT APPLICABLE (calc) 6-22 SODIUM 136 mmol/L 135-146 POTASSIUM 4.7 mmol/L 3.5-5.3 CHLORIDE 100 mmol/L 98-110 CARBON DIOXIDE 28 mmol/L 20-32 CALCIUM 9.9 mg/dL 8.6-10.2 PROTEIN, TOTAL 6.8 g/dL 6.1-8.1 ALBUMIN 4.3 g/dL 3.6-5.1 GLOBULIN 2.5 g/dL (calc) 1.9-3.7 ALBUMIN/GLOBULIN RATIO 1.7 (calc) 1.0-2. 5 BILIRUBIN, TOTAL 0.2 mg/dL 0.2-1.2 ALKALINE PHOSPHATASE 53 U/L 33-115 AST 9 U/L 10-30 ALT 10 U/L 6-29 Encounters ACCT No. Visit Date/Time Discharge Status Pt. Type Provider Facility Loc./Unit Complaint [id number] 09/15/2014 18:04:00 09/15/2014 23:59: 59 CLS Outpatient ANAHI LOZOYANERY [id number] 07/31/2014 14:15:00 07/31/2014 23:59: 59 CLS Outpatient ANA ROSA BENNETT APRN [id number] 05/01/2014 15:56:00 05/01/2014 23:59: 59 CLS Outpatient NERY ANGELES [id number] 04/10/2014 12:59:00 04/10/2014 23:59: 59 CLS Outpatient ANAHI NERY SHEIKH [id number] 02/26/2014 14:03:00 02/26/2014 23:59: 59 CLS Outpatient BING BEAR PSYD [id number] 01/09/2014 16:01:00 01/09/2014 23:59: 59 CLS Outpatient BING BEAR PSYD [id number] 10/10/2013 12:50:00 10/10/2013 23:59: 59 CLS Outpatient TAMMY JOSE LCPC [id number] 02/14/2011 00:00:00 02/14/2011 23:59: 59 [place] [id number] 09/29/2019 15:30:00 09/29/2019 23:59:5 9 CLS Outpatient LIVIA ZALDIVAR [facility] [id number] 11/04/2018 10:00:00 Document Registration [id number] 11/07/2017 14:00:00 Document Registration 08/201706/03/2017 06:13:01 06/03/2017 23:59: 59 CLS Outpatient Tierra HarrisonMurali [id number] 08/04/2018 18:12:00 019 22:44:00 DIS Outpatient EVELIN CHRISTOPHER [facility] ER STOMACH PAIN/SOB [id number] 01/20/2018 18:44:00 018 22:10:00 DIS Emergency EVELIN CHRISTOPHER [facility] ER BOIL IN BETWEEN LEGS [id number] 09/13/2016 10:00:00 017 23:59:59 CLS Preadmit DALLIN MCNAIR MD [facility] SDC RIGHT KNEE TORN MEDIAL MENISCUS [id number] 09/07/2016 08:58:00 017 09:20:00 DIS Outpatient DALLIN MCNAIR MD [facility] PREOP RIGHT KNEE TORN MEDICA L MENISCUS [id number] 08/23/2016 11:42:00 017 12:48:00 DIS Emergency TYLER YA APRN [facility] ER WOUND CHECK [id number] 08/18/2016 22:01:00 017 23:23:00 DIS Emergency TYLER YA APRN [facility] ER VAGINAL BOIL [id number] 08/04/2016 13:19:00 017 23:59:59 CLS Outpatient DALLIN MCNAIR MD [facility] RAD SYMPTOMATIC MEDIAL PIC CA [id number] 07/25/2016 14:31:00 017 16:00:00 DIS Emergency TYLER YA APRN [facility] ER COLD SYMPTOMS [id number] 10/24/2015 16:48:00 016 19:00:00 DIS Emergency KIERSTEN MAR DO [facility] ER SORE ON STOMACH [id number] 10/15/2015 12:59:00 016 23:59:59 CLS Outpatient LILLIAMNDER TIERRA FREGOSO [facility] RAD LOWER ABDOMINAL PAIN [id number] 07/29/2015 14:07:00 016 23:59:59 CLS Outpatient KRIS YEE APRN [facility] RAD BILATERAL KNEE PAIN [id number] 06/11/2013 17:18:00 014 23:59:59 CLS Outpatient COLTHARP CARY FREGOSO A [facility] QUICK LEFT ANKLE PAIN [id number] 09/30/2012 19:34:00 013 23:59:59 CLS Outpatient FRANCY SOTO [facility] QUICK EAR ACHE, SORE THROAT [id number] 01/30/2018 06:50:00 Document Registration [id number] 01/30/2018 06:50:00 Document Registration [id number] 01/30/2018 06:50:00 Document Registration [id number] 01/30/2018 06:50:00 Document Registration [id number] 01/30/2018 06:50:00 Document Registration [id number] 10/13/2015 11:47:00 Document Registration [id number] 05/24/2012 12:15:00 Document Registration [id number] 07/07/2011 08:34:00 Document Registration [id number] 06/12/2010 20:11:00 Document Registration [id number] 05/24/2010 22:52:00 Document Registration [id number] 01/17/2010 17:21:00 Document Registration [id number] 09/04/2007 09:23:00 Document Registration [id number] 02/27/2007 10:27:00 Document Registration [id number] 06/25/2006 11:48:00 Document Registration
--- OUTSIDE RECORDS SUMMARY | 2019-11-01 16:12 | XMS REPORT ---
Author Author Joycelyn MOBLEYlyn CALVIN [facility] Address [address] [place] [address] Care Team Providers Care Over The Road Driver Name Role Phone CALVIN MOBLEY Unavailable PROBLEMS Type Condition ICD9-CM Code USE34-SO Code Onset Dates Condition S tatus SNOMED Code Problem Attention deficit disorder F90.0 Act charlette 775746827 Problem Allergic rhinitis, unspecified seasonality, unspecifie d trigger J30.9 Active 03015775 Problem Mood disorder F39 Active 847457 05 Problem Dysthymic disorder F34.1 Active 7 5655774 Problem Anxiety disorder, unspecified F41.9 Active 126663364 Problem Depressive disorder, not elsewhere classified F32. 9 Active 18587972 Problem Social phobia F40.10 Active 246637 02 ALLERGIES Substance Reaction Event Type Date Status Rocephin Unknown Drug Allergy Feb, Active ENCOUNTERS Encounter Location Date Diagnosis [facility] [address] [address] Feb, Dysuria R30.0 ; Sore throat J02.9 ; Allergic rhinitis, unspecified seasonality, unspecified trigger J30.9 and Vaginal betzy B37.3 [facility] [address] [id number] [address] [place] [address] Jan, Cutaneous abscess of buttock L02.31 [facility] [address] [id number] [address] [place] [phone] Oct, [facility] [address] [address] Oct, [facility] [address] [id number] [address] [place] [address] Oct, Cystitis N30.90 and Dysuria R30.0 [facility] [address] [id number] [address] [place] [id number] Oct, Dental examination Z01.20 [facility] [address] [facility] [id number] [address] [place] [phone] May, Fever, unspecified fever cau se R50.9 and Acute nasopharyngitis J00 [facility] [address] [facility] [id number] [address] [place] [phone] Dec, Mood disorder F39 [facility] [address] [facility] [id number] [address] [place] [phone] Dec, Mood disorder F39 [facility] [address] [facility] [id number] [place] [phone] Jul, Depressive disorder, not els ewhere classified F32.9 and Social phobia F40.10 [facility] [address] [id number] [address] [place] [id number] Jul, Encounter for dental examina tion Z01.20 [facility] [address] [facility] [id number] [address] [place] [phone] Jan, Depressive disorder, not els ewhere classified 311 ; Anxiety state, unspecified 300.00 and Attention deficit disorder without mention of hyperactivity 314.00 [facility] [address] [facility] [id number] [address] [place] [phone] Jan, Depressive disorder, not els ewhere classified 311 ; Anxiety state, unspecified 300.00 and Attention deficit disorder without mention of hyperactivity 314.00 [facility] [address] [facility] [id number] [address] [place] [phone] Oct, Depressive disorder, not els ewhere classified 311 [facility] [address] [facility] [id number] [address] [place] [phone] September, Depressive disorder, not els ewhere classified 311 [facility] [address] [facility] [id number] [address] [place] [phone] Aug, [facility] [address] [facility] [id number] [address] [place] [phone] 14 Aug, 2014 [facility] [address] [id number] [address] [place] [address], [place] [address] Aug, [facility] [address] [id number] [address] [place] [address], [place] [address] Jul, [facility] [address] [id number] [address] [place] [address], [place] [address] Jul, [facility] [address] [id number] [address] [place] [address], [place] [address] Jun, [facility] [address] [id number] [address] [place] [address], [place] [address] Jun, [facility] [address] [id number] [address] [place] [address], [place] [address] Apr, [facility] [address] [id number] [address] [place] [address], [place] [address] Apr, [facility] [address] [id number] [address] [place] [address], [place] [address] Mar, [facility] [address] [id number] [address] [place] [address], [place] [address] Mar, [facility] [address] [id number] [address] [place] [address], [place] [address] Feb, [facility] [address] [id number] [address] [place] [address], [place] [address] Feb, [facility] [address] [id number] [address] [place] [address], [place] [address] Dec, [facility] [address] [id number] [address] [place] [address], [place] [address] Dec, [facility] [address] [id number] [address] [place] [address], [place] [address] Nov, [facility] [address] [id number] [address] [place] [address], [place] [address] Nov, [facility] [address] [facility] [id number] [address] [place] [phone] September, [facility] [address] [facility] [id number] [address] [place] [address] September, [facility] [address] [facility] [id number] [address] [place] [phone] Aug, [facility] [address] [facility] [id number] [address] [place] [address] Apr, [facility] [address] [facility] [id number] [address] [place] [phone] Apr, [facility] [address] [facility] [id number] [address] [place] [address] Apr, IMMUNIZATIONS No Known Immunizations SOCIAL HISTORY Never Assessed REASON FOR VISIT STD check Nola SHIPMAN, cough, runny nose, drainage, left ear feels clogged. Nola SHIPMAN PLAN OF CARE Activity Details Follow Up if not improving with PCP or reg follow up Reason: Pending Test GC/CHLAM URINE (STATE) VITAL SIGNS Height 64 in 2018-02-21 Weight 205.5 lbs 2018-02-21 Temperature 98.8 degrees Fahrenheit 2018-02-21 Heart Rate 113 bpm 2018-02-21 Respiratory Rate 18 2018-02-21 BMI 35.27 kg/m2 2018-02-21 Blood pressure systolic 126 mmHg 2018-02-21 Blood pressure diastolic 82 mmHg 2018-02-21 MEDICATIONS Medication Instructions Dosage Frequency Start Date End Date Duration S tatus Zyrtec Allergy 10 mg Orally Once a day 1 tablet 24h Feb, 201 8 2 May, 2018 30 day(s) Active Diflucan 150 MG Orally Once a day 1 tablet 24h Feb, 7 Feb, 2 018 3 days Active Fluticasone Propionate 50 MCG/ACT Nasally Once a day 1 spray in each nostril 24h Feb, 30 day(s) Active RESULTS Name Result Date Reference Range STREP A (IN HOUSE) 2018-02-21 STREP A NEG Control + Lot # [id number] Exp date 10/18/2018 UA LONG DIP (IN HOUSE) 2018-02-21 Lot # [id number] Exp date 11/2018 Clarity clear Color yellow Odor none GLU 2+ AMOS negative KET negative SG 1.030 BLO negative pH 6.0 Protein negative URO 0.2 NIT negative AGUSTIN negative Lot # Exp date PROCEDURES Procedure Date Ordered Result Body Site URINALYSIS, AUTO, W/O SCOPE Feb 21, 2018 STREP A ASSAY W/OPTIC Feb 21, 2018 No Charge Feb 21, 2018 INSTRUCTIONS MEDICATIONS ADMINISTERED No Known Medications MEDICAL (GENERAL) HISTORY Type Description Date Medical History Diabetes-II Surgical History Tonsils removed 2002 Surgical History Blood infection 2010 Hospitalization History ER visit for boil 2018
--- OUTSIDE RECORDS SUMMARY | 2019-11-01 16:12 | XMS REPORT ---
Author Author Fiorella MBOLEY CALVIN [facility] Address [address] [place] [address] Care Team Providers Care Tie Puller Name Role Phone CALVIN MOBLEY Unavailable PROBLEMS Type Condition ICD9-CM Code ZCY94-ZG Code Onset Dates Condition S tatus SNOMED Code Problem Attention deficit disorder F90.0 Act charlette [id number] Problem Allergic rhinitis, unspecified seasonality, unspecifie d trigger J30.9 Active 21652319 Problem Mood disorder F39 Active 917624 05 Problem Dysthymic disorder F34.1 Active 7 3193586 Problem Anxiety disorder, unspecified F41.9 Active 780836731 Problem Depressive disorder, not elsewhere classified F32. 9 Active 81392179 Problem Social phobia F40.10 Active 018478 02 ALLERGIES No Information ENCOUNTERS Encounter Location Date Diagnosis [facility] [address] [address] Feb, [facility] [address] [address] Feb, Dysuria R30.0 ; Sore throat J02.9 ; Allergic rhinitis, unspecified seasonality, unspecified trigger J30.9 and Vaginal betzy B37.3 [facility] [address] [id number] [address] [place] [address] Jan, Cutaneous abscess of buttock L02.31 [facility] [address] [id number] [address] [place] [phone] Oct, [facility] [address] [address] Oct, [facility] [address] [id number] [address] [place] [address] Oct, Cystitis N30.90 and Dysuria R30.0 [facility] [address] [facility] [id number] [address] [place] [id number] Oct, Dental examination Z01.20 [facility] [address] [facility] [id number] [address] [place] [phone] May, Fever, unspecified fever cau se R50.9 and Acute nasopharyngitis J00 [facility] [address] [facility] [id number] [address] [place] [phone] Dec, Mood disorder F39 [facility] [address] [id number] [address] [place] [phone] Dec, Mood disorder F39 [facility] [id number] [place] [phone] Jul, Depressive disorder, not els ewhere classified F32.9 and Social phobia F40.10 [facility] [address] [facility] [id number] [address] [place] [address] [id number] Jul, Encounter for dental examina tion Z01.20 [facility] [address] [facility] [id number] [address] [place] [phone] Jan, Depressive disorder, not els ewhere classified 311 ; Anxiety state, unspecified 300.00 and Attention deficit disorder without mention of hyperactivity 314.00 [facility] [address] [id number] [address] [place] [phone] Jan, Depressive disorder, not els ewhere classified 311 ; Anxiety state, unspecified 300.00 and Attention deficit disorder without mention of hyperactivity 314.00 [facility] [address] [id number] [address] [place] [phone] Oct, Depressive disorder, not els ewhere classified 311 [facility] [id number] [place] [phone] September, Depressive disorder, not els ewhere classified 311 [facility] [address] [id number] [address] [place] [phone] Aug, [facility] [address] [id number] [address] [place] [address], [place] [address] 14 Aug, 2014 [facility] [address] [id number] [address] [place] [address], [place] [address] Aug, [facility] [address] [id number] [address] [place] [address], [place] [address] Jul, [facility] [address] [id number] [address] [place] [address], [place] [address] Jul, [facility] [address] [id number] [address] [place] [address], [place] [address] Jun, [facility] [address] [id number] [address] [place] [address], [place] [address] Jun, [facility] [address] [id number] [address] [place] [address], [place] [address] Apr, [facility] [address] [id number] [address] [place] [address], [place] [address] Apr, [facility] [address] [id number] [address] [place] [address], [place] [address] Mar, [facility] [address] [id number] [address] [place] [address], [place] [address] Mar, [facility] [address] [id number] [address] [place] [address], [place] [address] Feb, [facility] [address] [id number] [address] [place] [address], [place] [address] Feb, [facility] [address] [id number] [address] [place] [address], [place] [address] Dec, [facility] [address] [id number] [address] [place] [address], [place] [address] Dec, [facility] [address] [id number] [address] [place] [address], [place] [address] Nov, [facility] [address] [id number] [address] [place] [phone] Nov, [facility] [address] [facility] [id number] [address] [place] [phone] September, [facility] [address] [facility] [id number] [address] [place] [phone] September, [facility] [address] [facility] [id number] [address] [place] [phone] Aug, [facility] [address] [facility] [id number] [address] [place] [phone] Apr, [facility] [address] [facility] [id number] [address] [place] [phone] Apr, [facility] [address] [facility] [id number] [address] [place] [phone] Apr, IMMUNIZATIONS No Known Immunizations SOCIAL HISTORY Never Assessed REASON FOR VISIT Routine nurse call PLAN OF CARE VITAL SIGNS MEDICATIONS Unknown Medications RESULTS No Results PROCEDURES No Known procedures INSTRUCTIONS MEDICATIONS ADMINISTERED No Known Medications MEDICAL (GENERAL) HISTORY Type Description Date Medical History Diabetes-II Surgical History Tonsils removed 2002 Surgical History Blood infection 2010 Hospitalization History ER visit for boil 2018
[2019-11-01] MEDS ORDERED: AMOXICILLIN 500 MG (POLYMOX) CAP PO STA (16:20)
--- NOTE | 2019-11-01 16:24 | ED EENT ---
History of Present Illness General Chief Complaint: Dental Problems/Pain Stated Complaint: DENTAL PAIN Source: patient Exam Limitations: no limitations History of Present Illness Date Seen by Provider: Nov 01, 2019 Time Seen by Provider: 16:22 Initial Comments To ER with reports of right upper dental pain sudden onset Timing/Duration: abrupt Severity: moderate Location: mouth Associated Symptoms: denies symptoms Allergies and Home Medications Allergies Coded Allergies: ceftriaxone (Unverified Allergy, Mild, HIVES, 01/17/10) Home Medications Hydrocodone Bit/Acetaminophen 1 Tab Tab, 1 EACH PO Q6H PRN for PAIN Prescribed by: EVELIN CHRISTOPHER on 01/20/182150 Hydrocodone Bit/Acetaminophen 1 Tab Tab, 1 EACH PO Q4-6HR PRN for PAIN-MODERATE Prescribed by: EVELIN CHRISTOPHER on 08/04/182108 Nitrofurantoin Monohyd/M-Cryst 100 Mg Capsule, 1 TAB PO BID Prescribed by: EVELIN CHRISOTPHER on 08/04/182108 Ondansetron HCl 4 Mg Tab, 4 MG PO Q4H PRN for NAUSEA/VOMITING Prescribed by: EVELIN CHRISTOPHER on 08/04/182108 Sulfamethoxazole/Trimethoprim 1 Each Tablet, 1 EACH PO BID Prescribed by: EVELIN CHRISTOPHER on 01/20/182150 Patient Home Medication List Home Medication List Reviewed: Yes Review of Systems Review of Systems Constitutional: see HPI Eyes: No Symptoms Reported Ears: No Symptoms Reported Mouth: no symptoms reported Throat: no symptoms reported Respiratory: no symptoms reported Cardiovascular: no symptoms reported Musculoskeletal: no symptoms reported Skin: no symptoms reported Neurological: No Symptoms Reported Hematologic/Lymphatic: No Symptoms Reported Past Tizweom-Vpgmpy-Gkeygd Hx Patient Social History Type Used: Cigarettes 2nd Hand Smoke Exposure: Yes Recent Foreign Travel: No Contact w/Someone Who Travel: No Recent Hopitalizations: No Immunizations Up To Date Tetanus Booster (TDap): Less than 5yrs PED Vaccines UTD: No Date of Pneumonia Vaccine: May 27, 2012 Date of Influenza Vaccine: May 27, 2012 Seasonal Allergies Seasonal Allergies: Yes Past Medical History Surgeries: Yes (T&A, MULTIPLE ABSCESS I&D'S, "BLADDER STRETCHED" WHEN YOUNGER) Adenoidectomy, Bladder Surgery, Tonsillectomy Respiratory: No Cardiac: No Neurological: No Female Reproductive Disorders: Denies Genitourinary: Yes UTI-Chronic Gastrointestinal: Yes (Chronic constipation) Chronic Constipation Musculoskeletal: No Endocrine: No Diabetes, Insulin dep HEENT: No Cancer: No Psychosocial: No Integumentary: Yes Blood Disorders: No Physical Exam Height, Weight, BMI Height: 5'5.00" Weight: 200lbs. 0oz. [id number]; 28.12 BMI Method:Stated General Appearance: WD/WN, no apparent distress Eyes: bilateral eye normal inspection, bilateral eye PERRL, bilateral eye EOMI Ears: bilateral ear auricle normal, bilateral ear canal normal, bilateral ear TM normal Neck: non-tender, full range of motion Respiratory: no respiratory distress, no accessory muscle use Gastrointestinal: normal bowel sounds, non tender Neurologic/Psychiatric: alert, normal mood/affect, oriented x 3 Skin: normal color, warm/dry Progress/Results/Core Measures Results/Orders My Orders Orders - TYLER YA APRN Hydrocodone/Apap 5/325 Tablet (Lortab 5 (11/01/19 16:30) Amoxicillin Capsule (Polymox Capsule) (11/01/19 16:20) Departure Communication (Admissions) Did an anterior superior alveolar nerve block using 1.5 mL of 0.5% bupivacaine with epinephrine Impression Primary Impression: Pain, dental Disposition: HOME, SELF-CARE Condition: Stable Departure-Patient Inst. Decision time for Depature: 16:24 Referrals: [facility] (PCP/Family) Primary Care Physician Patient Instructions: Dental Pain (DC) Scripts Amoxicillin (Amoxicillin) 500 Mg Capsule 500 MG PO TID, #21 CAP 0 Refills Prov: TYLER YA APRN 11/01/19 Naproxen (Naprosyn) 500 Mg Tablet 500 MG PO BID PRN for PAIN-SEVERE (8-10), #30 TAB 0 Refills Prov: TYLER YA APRN 11/01/19 Images Mouth/Nose 1 - Fracture Tooth, Tenderness TYLER YA APRN Nov 01, 2019 16:24
[2019-11-01] MEDS ORDERED: NAPR-1071 PO (16:25)
[2019-11-01] MEDS ORDERED: AMOX500C2 PO (16:25)
[2019-11-01] MEDS ORDERED: HYDROcodone/APAP 5 MG/325 MG (LORTAB) TAB PO ONE (16:30)
[2019-11-01 16:49] VITALS: BP 124/82
== END 2019-11-01 16:49 | disposition home or self-care (01) ==
LOC: EDUNIT# 16:04 → ER 16:05
DX: K08.89 Other specified disorders of teeth and supporting structures (principal); Z88.1 Allergy status to other antibiotic agents; Z77.22 Contact with and (suspected) exposure to environmental tobacco smoke (acute) (chronic)
CPT/HCPCS: 99283

== ENCOUNTER 2020-05-01 22:20 | Emergency (ER) | payer SELFPAY ==
[~2020-05-01] VITALS: Ht 165.1 cm; Wt 89.8 kg
[~2020-05-01 22:20] MED LIST changes: +AMOX500C2 PO; +NAPR-1071 PO
[2020-05-01 22:27] VITALS: BP 129/86
[2020-05-01] MEDS ORDERED: HYDROcodone/APAP 7.5 MG/325 MG (LORTAB, LORCET PLUS) TABLET PO ONE (23:00)
[2020-05-01] MEDS ORDERED: TRM50T PO (23:12)
[2020-05-01] MEDS ORDERED: PENI500T PO (23:13)
--- NOTE | 2020-05-01 23:13 | ED EENT ---
History of Present Illness General Chief Complaint: Dental Problems/Pain Stated Complaint: TOOTHACHE Nursing Triage Note: PT AMBULATE TO TRIAGE WITH C/O RIGHT UPPER TOOTH PAIN X1 WEEK. PT REPORTS TOOTH "HAS BEEN BAD" X2 MONTHS. PT REPORTS THAT SHE DID NOT SCHEDULE AN APPT WHEN FIRST CONTACTING [facility] X2 MONTHS AGO AND THAT SHE DID SCHEDULE AN APPT FOR MAY OF NEXT YEAR. Source: patient Exam Limitations: no limitations History of Present Illness Date Seen by Provider: May 01, 2020 Time Seen by Provider: 22:40 Initial Comments Patient is a 20-year-old female who presents to the emergency room with a chief complaint of right upper posterior molar tooth pain for 1 week. Patient states she has been taking Tylenol and ibuprofen without any relief of symptoms. Patient states she does not have a dental appointment scheduled until May 23. Patient denies any fevers or chills. She has pain with eating. Denies any swelling. All other review of systems reviewed and negative except as stated. Timing/Duration: gradual Location: dental Prearrival Treatment: over the counter meds Associated Symptoms: denies symptoms Allergies and Home Medications Allergies Coded Allergies: ceftriaxone (Unverified Allergy, Mild, HIVES, 01/17/10) Home Medications Amoxicillin 500 Mg Capsule, 500 MG PO TID Prescribed by: TYLER YA on 11/01/191624 Hydrocodone Bit/Acetaminophen 1 Tab Tab, 1 EACH PO Q6H PRN for PAIN Prescribed by: EVELIN CHRISTOPHER on 01/20/182150 Hydrocodone Bit/Acetaminophen 1 Tab Tab, 1 EACH PO Q4-6HR PRN for PAIN-MODERATE Prescribed by: EVELIN CHRISTOPHER on 08/04/182108 Naproxen 500 Mg Tablet, 500 MG PO BID PRN for PAIN-SEVERE (8-10) Prescribed by: TYLER YA on 11/01/19 162 Nitrofurantoin Monohyd/M-Cryst 100 Mg Capsule, 1 TAB PO BID Prescribed by: EVELIN CHRISTOPHER on 08/04/182108 Ondansetron HCl 4 Mg Tab, 4 MG PO Q4H PRN for NAUSEA/VOMITING Prescribed by: EVELIN CHRISTOPHER on 08/04/182108 Sulfamethoxazole/Trimethoprim 1 Each Tablet, 1 EACH PO BID Prescribed by: EVELIN CHRISTOPHER on 01/20/182150 Patient Home Medication List Home Medication List Reviewed: Yes Review of Systems Review of Systems Constitutional: no symptoms reported Eyes: No Symptoms Reported Ears: No Symptoms Reported Nose: no symptoms reported Mouth: see HPI Throat: no symptoms reported Respiratory: no symptoms reported Cardiovascular: no symptoms reported Past Csfdbtx-Cywimd-Chtsgm Hx Patient Social History Alcohol Use: Denies Use Recreational Drug Use: No Smoking Status: Current Everyday Smoker Type Used: Cigarettes 2nd Hand Smoke Exposure: Yes Recent Foreign Travel: No Contact w/Someone Who Travel: No Recent Infectious Disease Expo: No Recent Hopitalizations: No Physical Abuse: No Sexual Abuse: No Mistreated: No Fear: No Immunizations Up To Date Tetanus Booster (TDap): Less than 5yrs PED Vaccines UTD: No Date of Pneumonia Vaccine: May 27, 2012 Date of Influenza Vaccine: May 27, 2012 Seasonal Allergies Seasonal Allergies: Yes Past Medical History Surgeries: Yes (T&A, MULTIPLE ABSCESS I&D'S, "BLADDER STRETCHED" WHEN YOUNGER) Adenoidectomy, Bladder Surgery, Tonsillectomy Respiratory: No Cardiac: No Neurological: No Female Reproductive Disorders: Denies Genitourinary: Yes UTI-Chronic Gastrointestinal: Yes (Chronic constipation) Chronic Constipation Musculoskeletal: No Endocrine: No Diabetes, Insulin dep HEENT: No Cancer: No Psychosocial: No Integumentary: Yes Blood Disorders: No Physical Exam Vital Signs Vital Signs - First Documented 05/01/20 22:27 Temp 36.4 Pulse 70 Resp 17 B/P (MAP) 129/86 (100) O2 Delivery Room Air Height, Weight, BMI Height: 5'5.00" Weight: 200lbs. 0oz. 90.154014pt; 32.00 BMI Method:Stated General Appearance: WD/WN, no apparent distress Eyes: bilateral eye normal inspection, bilateral eye PERRL, bilateral eye EOMI Ears: bilateral ear auricle normal Nose: normal inspection Mouth/Throat: pharynx normal, dental tenderness (Right upper posterior molar) Neck: full range of motion, supple Cardiovascular: regular rate, rhythm Respiratory: no respiratory distress, no accessory muscle use Progress/Results/Core Measures Results/Orders My Orders Orders - YANCY GARCIA MD Hydrocodone/Apap 7.5/325 Tab (Lortab 7. (05/01/20 23:00) Medications Given in ED Current Medications Medications Dose Ordered Sig/Meghna Route Start Time Stop Time Status Last Admin Dose Admin Acetaminophen/ Hydrocodone Bitart 1 ea ONCE ONCE PO 05/01/20 23:00 05/01/20 23:01 DC 05/01/20 22:59 1 EA Vital Signs/I&O 05/01/20 22:27 Temp 36.4 Pulse 70 Resp 17 B/P (MAP) 129/86 (100) O2 Delivery Room Air Blood Pressure Mean: 100 Progress Progress Note : Time: 23:09 Progress Note Patient with dental pain, no signs of abscess. Patient will be treated here in the emergency department with [place] 7.5 mg. She will be given a prescription for some Ultram at night for 2 days. Also placed on Pen-Vee K for infectious prophylaxis. Patient has a pending dental appointment she is given good return precautions she verbalized understanding all questions are sought and answered and she is stable for discharge. Departure Impression Primary Impression: Pain, dental Disposition: HOME, SELF-CARE Condition: Stable Departure-Patient Inst. Decision time for Depature: 23:11 Referrals: [facility] (PCP/Family) Primary Care Physician Patient Instructions: Fractured Tooth (DC), Dental Pain Add. Discharge Instructions: Keep your dentist appointment as scheduled. Alternate Tylenol and ibuprofen as needed for pain. I have given you a prescription for tramadol to take with severe pain. I have also written you a prescription for antibiotics that has been sent to your [facility] pharmacy. Swish and spit half peroxide half water solution twice daily Return to the emergency department for any worsening pain especially with swelling, fever or other emergent concerning symptoms. All discharge instructions reviewed with patient and/or family. Voiced understanding. Scripts Penicillin V Potassium (Penicillin V Potassium) 500 Mg Tablet 500 MG PO Q6H, #28 TAB Prov: YANCY GARCIA MD 05/01/20 Tramadol HCl (Tramadol HCl) 50 Mg Tablet 50 MG PO Q6H PRN for severe pain, #8 TAB Prov: YANCY GARCIA MD 05/01/20 YANCY GARCIA MD May 01, 2020 23:13
--- NOTE | 2020-05-02 00:07 | NUR ---
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
== END 2020-05-01 23:20 | disposition home or self-care (01) ==
LOC: EDUNIT# 22:20 → ER 22:22
DX: K08.89 Other specified disorders of teeth and supporting structures (principal); F17.210 Nicotine dependence, cigarettes, uncomplicated; Z88.8 Allergy status to other drugs, medicaments and biological substances
CPT/HCPCS: 99283

== ENCOUNTER 2021-09-02 14:26 | Emergency (ER) | payer SELFPAY ==
[~2021-09-02] VITALS: Ht 167.7 cm; Wt 75.0 kg
[~2021-09-02 14:26] MED LIST changes: +PENI500T PO; -SULF1TAB35 PO; +TRM50T PO
[2021-09-02 14:48] LABS: BILIRUBIN,URINE NEGATIVE (NEGATIVE); CLARITY,URINE CLEAR; COLOR,URINE YELLOW; GLUCOSE, URINE (UA) 3+ (NEGATIVE); KETONES,URINE NEGATIVE (NEGATIVE); LEUKOCYTE ESTERASE ,URINE NEGATIVE (NEGATIVE); NITRITE,URINE NEGATIVE (NEGATIVE); PROTEIN,URINE NEGATIVE (NEGATIVE)
--- NOTE | 2021-09-02 14:59 | ED General ---
General Chief Complaint: OB < 20 WEEKS Stated Complaint: APPROX 7 WKS PREG/VAG BLEEDING Source of Information: Patient Exam Limitations: No Limitations History of Present Illness Date Seen by Provider: Sep 02, 2021 Time Seen by Provider: 14:36 Initial Comments This is a well appearing 21 yo female G-1, P-0, A-0 who presented to the ER via POV with c/o light pink vaginal spotting with intermittent mild cramps for past 3 days. States she is currently approximately 7 weeks with last day of LMP 07/14/2021. States she has appointment scheduled with OB for September 14. Takes vitamin daily. She denies heavy bleeding or need for pad. Has light pink spotting intermittently when she wipes after voiding. Denies pelvic pressure or pain. Has pink tinged clear/thick vaginal discharge. No odor she can appreciate. No fever, cough, shortness of breath, diarrhea, or rashes. Allergies and Home Medications Allergies Coded Allergies: ceftriaxone (Unverified Allergy, Mild, HIVES, 01/17/10) Patient Home Medication List Home Medication List Reviewed: Yes Amoxicillin (Amoxicillin) 500 Mg Capsule, 500 MG PO TID Prescribed by: TYLER YA on 11/01/191624 Hydrocodone Bit/Acetaminophen (Lortab 5 Mg Tablet) 1 Tab Tab, 1 EACH PO Q6H PRN for PAIN Prescribed by: EVELIN CHRISTOPHER on 01/20/182150 Hydrocodone Bit/Acetaminophen (Lortab 5 Mg Tablet) 1 Tab Tab, 1 EACH PO Q4-6HR PRN for PAIN-MODERATE Prescribed by: EVELIN CHRISTOPHER on 08/04/182108 Metronidazole (Metronidazole) 55 Gm Gel.w.pump, 0.75 % TP HS Prescribed by: TRISTA WORRELL on 09/02/211625 Naproxen (Naprosyn) 500 Mg Tablet, 500 MG PO BID PRN for PAIN-SEVERE (8-10) Prescribed by: TYLER YA on 11/01/19 162 Nitrofurantoin Monohyd/M-Cryst (Macrobid 100 mg Capsule) 100 Mg Capsule, 1 TAB PO BID Prescribed by: EVELIN CHRISTOPHER on 08/04/182108 Ondansetron HCl (Zofran) 4 Mg Tab, 4 MG PO Q4H PRN for NAUSEA/VOMITING Prescribed by: EVELIN CHRISTOPHER on 08/04/182108 Penicillin V Potassium (Penicillin V Potassium) 500 Mg Tablet, 500 MG PO Q6H Prescribed by: YANCY GARCIA on 05/01/202312 Sulfamethoxazole/Trimethoprim (Bactrim Ds Tablet) 1 Each Tablet, 1 EACH PO BID Prescribed by: EVELIN CHRISTOPHER on 01/20/182150 Tramadol HCl (Tramadol HCl) 50 Mg Tablet, 50 MG PO Q6H PRN for severe pain Prescribed by: YANCY GARCIA on 05/01/202311 Review of Systems Review of Systems Constitutional: No dizziness, No fever, No malaise EENTM: no symptoms reported Respiratory: no symptoms reported Cardiovascular: no symptoms reported Gastrointestinal: see HPI Genitourinary: see HPI : Yes LMP: Jul 14, 2021 Musculoskeletal: no symptoms reported Skin: no symptoms reported Psychiatric/Neurological: No Symptoms Reported Hematologic/Lymphatic: No Symptoms Reported Immunological/Allergic: no symptoms reported Past Srhuazs-Yyunck-Zygfdx Hx Immunizations Up To Date Tetanus Booster (TDap): Less than 5yrs PED Vaccines UTD: No Seasonal Allergies Seasonal Allergies: Yes Past Medical History Surgeries: Yes (T&A, MULTIPLE ABSCESS I&D'S, "BLADDER STRETCHED" WHEN YOUNGER) Adenoidectomy, Bladder Surgery, Tonsillectomy Respiratory: No Cardiac: No Neurological: No Female Reproductive Disorders: Denies Genitourinary: Yes UTI-Chronic Gastrointestinal: Yes (Chronic constipation) Chronic Constipation Musculoskeletal: No Endocrine: No Diabetes, Insulin dep HEENT: No Cancer: No Psychosocial: No Integumentary: Yes Blood Disorders: No Physical Exam Vital Signs Vital Signs - First Documented 09/02/21 15:14 Temp 36.1 Pulse 76 Resp 14 B/P (MAP) 124/84 (97) Pulse Ox 99 O2 Delivery Room Air Capillary Refill : Height, Weight, BMI Height: 5'5.00" Weight: 200lbs. 0oz. 90.612677xz; 32.00 BMI Method:Stated General Appearance: No Apparent Distress, WD/WN Eyes: Bilateral Eye Normal Inspection, Bilateral Eye PERRL, Bilateral Eye EOMI HEENT: PERRL/EOMI, Normal ENT Inspection, Pharynx Normal, Moist Mucous Membranes Neck: Normal Inspection, Non Tender, Supple Respiratory: Lungs Clear, Normal Breath Sounds, No Accessory Muscle Use, No Respiratory Distress Cardiovascular: Regular Rate, Rhythm, No Edema, Normal Peripheral Pulses Gastrointestinal: Normal Bowel Sounds, Non Tender, Soft Back: Normal Inspection, No Vertebral Tenderness Extremity: Normal Inspection, Normal Range of Motion Neurologic/Psychiatric: Alert, Oriented x3, No Motor/Sensory Deficits, Normal Mood/Affect Skin: Normal Color, Warm/Dry Progress/Results/Core Measures Suspected Sepsis SIRS Temperature: Pulse: Respiratory Rate: Laboratory Tests 09/02/21 15:05: White Blood Count 10.3 Blood Pressure / Mean: Laboratory Tests 09/02/21 15:05: Creatinine 0.66, Platelet Count 309, Total Bilirubin 0.4 Results/Orders Lab Results Laboratory Tests Test 09/02/21 14:40 09/02/21 15:05 Range/Units Urine Color YELLOW Urine Clarity CLEAR Urine pH 5.0 5-9 Urine Specific [place] 1.025 H 1.016-1.022 Urine Protein NEGATIVE NEGATIVE Urine Glucose (UA) 3+ H NEGATIVE Urine Ketones NEGATIVE NEGATIVE Urine Nitrite NEGATIVE NEGATIVE Urine Bilirubin NEGATIVE NEGATIVE Urine Urobilinogen 0.2 < = 1.0 MG/DL Urine Leukocyte Esterase NEGATIVE NEGATIVE Urine RBC (Auto) NEGATIVE NEGATIVE Urine RBC NONE /HPF Urine WBC NONE /HPF Urine Squamous Epithelial Cells 0-2 /HPF Urine Crystals NONE /LPF Urine Bacteria NEGATIVE /HPF Urine Casts NONE /LPF Urine Mucus NEGATIVE /LPF Urine Culture Indicated NO White Blood Count 10.3 4.3-11.0 10^3/uL Red Blood Count 4.65 3.80-5.11 10^6/uL Hemoglobin 14.3 11.5-16.0 g/dL Hematocrit 41 35-52 % Mean Corpuscular Volume 89 80-99 fL Mean Corpuscular Hemoglobin 31 25-34 pg Mean Corpuscular Hemoglobin Concent 35 32-36 g/dL Red Cell Distribution Width 12.3 10.0-14.5 % Platelet Count 309 130-400 10^3/uL Mean Platelet Volume 8.9 L 9.0-12.2 fL Immature Granulocyte % (Auto) 0 % Neutrophils (%) (Auto) 61 42-75 % Lymphocytes (%) (Auto) 30 12-44 % Monocytes (%) (Auto) 6 0-12 % Eosinophils (%) (Auto) 2 0-10 % Basophils (%) (Auto) 1 0-10 % Neutrophils # (Auto) 6.3 1.8-7.8 10^3/uL Lymphocytes # (Auto) 3.0 1.0-4.0 10^3/uL Monocytes # (Auto) 0.6 0.0-1.0 10^3/uL Eosinophils # (Auto) 0.2 0.0-0.3 10^3/uL Basophils # (Auto) 0.1 0.0-0.1 10^3/uL Immature Granulocyte # (Auto) 0.0 0.0-0.1 10^3/uL Sodium Level 137 135-145 MMOL/L Potassium Level 3.7 3.6-5.0 MMOL/L Chloride Level 106 98-107 MMOL/L Carbon Dioxide Level 18 L 21-32 MMOL/L Anion Gap 13 5-14 MMOL/L Blood Urea Nitrogen 13 7-18 MG/DL Creatinine 0.66 0.60-1.30 MG/DL Estimat Glomerular Filtration Rate 126 BUN/Creatinine Ratio 20 Glucose Level 91 70-105 MG/DL Calcium Level 9.3 8.5-10.1 MG/DL Corrected Calcium 9.1 8.5-10.1 MG/DL Total Bilirubin 0.4 0.1-1.0 MG/DL Aspartate Amino Transf (AST/SGOT) 15 5-34 U/L Alanine Aminotransferase (ALT/SGPT) 22 0-55 U/L Alkaline Phosphatase 37 L 40-136 U/L Total Protein 6.7 6.4-8.2 GM/DL Albumin 4.2 3.2-4.5 GM/DL Human Chorionic Gonadotropin, Quant 42115 H <5 MIU/ML Micro Results Microbiology 09/02/21 Wet Prep - Final, Complete My Orders Orders - TRISTA WORRELL APRN Ua Culture If Indicated (09/02/21 14:42) Cbc With Automated Diff (09/02/21 14:49) Comprehensive Metabolic Panel (09/02/21 14:49) Wet Prep (09/02/21 14:49) Hcg,Quantitative (09/02/21 14:49) Abo Rh Type (09/02/21 14:49) Us Ob<14 Wks Sngle W/Transvag (09/02/21 15:20) Vital Signs/I&O 09/02/21 15:14 Temp 36.1 Pulse 76 Resp 14 B/P (MAP) 124/84 (97) Pulse Ox 99 O2 Delivery Room Air Capillary Refill : Progress Note : Progress Note Patient examined and in no acute distress. Will obtain basic labs, ABO RH, HCG level, UA and wet prep. Reviewed causes of light spotting/cramping in early such as implantation bleeding/cramping, subchorionic hematoma, infection, miscarriage. Has no severe abdominal pain or heavy bleeding making ectopic unlikely at this time, however will obtain US to verify intrauterine . Labs, imaging reviewed. Wet prep shows few clue cells. US shows embryo measures 9 mm in length corresponding to a gestational age of 7 weeks. Heart rate was detected at 110 bpm. Yolk sac was not seen. Reviewed labs and findings with patient. Will have her rest, have close follow up for DM and use of Jardiance. Will also prescribe Metrogel x 5 days for BV. Discharge POC reviewed and she is agreeable with plan. Diagnostic Imaging Comments [facility]. [place], [place] NAME: FIOR SORENSENMargaret Schwab [facility] REC#: [id number] PT STATUS: REG ER : 2000 PHYSICIAN: TRISTA WORRELL APRN ADMIT DATE: 09/02/21/ER Draft Date of Exam:09/02/21 US OB<14 WKS SNGLE W/TRANSVAG INDICATION: Threatened miscarriage. EXAMINATION: OB ultrasound. Uterus is normal in size, shape and position. There is intrauterine . The embryo measures 9 mm in length corresponding to a gestational age of 7 weeks. Heart rate was detected at 110 bpm. Yolk sac was not seen. Placental location is indeterminate. Amniotic fluid volume appeared normal. The adnexa are unremarkable. IMPRESSION: Single living intrauterine with estimated gestational age of 7 weeks. Dictated on workstation # [id number] Dict: 09/02/21 1610 Trans: 09/02/21 1614 [facility] [id number] Interpreted by: GISELA ESPINOZA MD Electronically signed by: Departure Impression Primary Impression: Spotting during in first trimester Additional Impressions: Bacterial vaginosis in Subchorionic hematoma in first trimester Disposition: 01 HOME, SELF-CARE Condition: Improved Departure-Patient Inst. Decision time for Depature: 16:05 Referrals: [facility] (PCP/Family) Primary Care Physician Patient Instructions: Bacterial Vaginosis (DC), Bleeding in Early (DC), Care During for People With Type 1 or Type 2 Diabetes, Medications and , Subchorionic Bleeding Add. Discharge Instructions: Plan: 1. Call [facility] tomorrow to schedule closer follow up. Will need to discuss control of diabetes with . Hold Jardiance at this time. 2. Rest. Nothing in the vagina, no intercourse. 4. As discussed you are higher risk for spontaneous miscarriage due to subchorionic bleed, return to the emergency department if you start having heavy bleeding or cramping with dizziness/lightheadedness, or if you are saturating pads. 5. Return for any new, concerning, or worsening symptoms. All discharge instructions reviewed with patient and/or family. Voiced understanding. Scripts Metronidazole (Metronidazole) 55 Gm Gel.w.pump 0.75 % TP HS for 5 Days, #55 GM 0 Refills Prov: TRISTA WORRELL LABORATORY CLERK 09/02/21 Work/School Note: Work Release Form Date Seen in the Emergency Department: Sep 02, 2021 Return to Work: Sep 09, 2021 Restrictions: No Restrictions Copy Copies To 1: [facility]/TRISTA STEVEN LABORATORY CLERK Sep 02, 2021 14:59
[2021-09-02 15:02] LABS: BACTERIA,URINE NEGATIVE /HPF; SQUAMOUS EPITHELIAL CELL,UR 0-2 /HPF
[2021-09-02 15:11] LABS: BASOPHILS # (AUTO) 0.1 10^3/uL (0.0-0.1); BASOPHILS % (AUTO) 1 % (0-10); EOSINOPHILS # (AUTO) 0.2 10^3/uL (0.0-0.3); EOSINOPHILS % (AUTO) 2 % (0-10); HEMATOCRIT 41 % (35-52); HEMOGLOBIN 14.3 g/dL (11.5-16.0); LYMPHOCYTES % (AUTO) 30 % (12-44); MEAN CORPUSCULAR HEMOGLOBIN 31 pg (25-34); MEAN CORPUSCULAR HGB CONC 35 g/dL (32-36); MEAN CORPUSCULAR VOLUME 89 fL (80-99); MEAN PLATELET VOLUME 8.9 fL (9.0-12.2); MONOCYTES # (AUTO) 0.6 10^3/uL (0.0-1.0); MONOCYTES % (AUTO) 6 % (0-12); NEUTROPHILS # (AUTO) 6.3 10^3/uL (1.8-7.8); NEUTROPHILS % (AUTO) 61 % (42-75); PLATELET COUNT 309 10^3/uL (130-400); WHITE BLOOD COUNT 10.3 10^3/uL (4.3-11.0)
[2021-09-02 15:20] LABS: ALBUMIN 4.2 GM/DL (3.2-4.5)
[2021-09-02 15:21] LABS: POTASSIUM 3.7 MMOL/L (3.6-5.0)
[2021-09-02 15:22] LABS: CALCIUM 9.3 MG/DL (8.5-10.1)
[2021-09-02 15:23] LABS: TOTAL PROTEIN 6.7 GM/DL (6.4-8.2)
[2021-09-02 15:25] LABS: BILIRUBIN,TOTAL 0.4 MG/DL (0.1-1.0)
[2021-09-02 15:26] LABS: CREATININE SERUM 0.66 MG/DL (0.60-1.30)
[2021-09-02] MEDS ORDERED: METR-145 PO (16:10)
--- NOTE | 2021-09-02 16:15 | Diagnostic Imaging Report ---
INDICATION: Threatened miscarriage. EXAMINATION: OB ultrasound. Uterus is normal in size, shape and position. There is intrauterine . The embryo measures 9 mm in length corresponding to a gestational age of 7 weeks. Heart rate was detected at 110 bpm. Yolk sac was not seen. Placental location is indeterminate. Amniotic fluid volume appeared normal. The adnexa are unremarkable. IMPRESSION: Single living intrauterine with estimated gestational age of 7 weeks. Dictated by: Dictated on workstation # [id number]
[2021-09-02] MEDS ORDERED: METR55GE2 TP (16:26)
[2021-09-02 16:48] VITALS: BP 128/79
== END 2021-09-02 16:52 | disposition home or self-care (01) ==
LOC: EDUNIT# 14:26 → ER 14:28
DX: O26.851 Spotting complicating pregnancy, first trimester (principal); O23.591 Infection of other part of genital tract in pregnancy, first trimester; O20.8 Other hemorrhage in early pregnancy; E11.9 Type 2 diabetes mellitus without complications; Z3A.01 Less than 8 weeks gestation of pregnancy; Z79.4 Long term (current) use of insulin
CPT/HCPCS: 36415; 76801; 76817; 80053; 81000; 84702; 85025; 86900; 86901; 87210

== ENCOUNTER 2022-01-24 16:43 | Observation (INO) | payer MEDICAID ==
[~2022-01-24] VITALS: Ht 167.7 cm; Wt 96.8 kg
[~2022-01-24 16:43] MED LIST changes: +METR-145 PO; +METR55GE2 TP
[2022-01-24] MEDS ORDERED: NS IV 1000 ML 1,000 ML IV SCH (17:15)
[2022-01-24 17:35] LABS: BILIRUBIN,URINE NEGATIVE (NEGATIVE); CLARITY,URINE CLEAR; COLOR,URINE YELLOW; GLUCOSE, URINE (UA) NEGATIVE (NEGATIVE); KETONES,URINE NEGATIVE (NEGATIVE); LEUKOCYTE ESTERASE ,URINE NEGATIVE (NEGATIVE); NITRITE,URINE NEGATIVE (NEGATIVE); PROTEIN,URINE NEGATIVE (NEGATIVE)
[2022-01-24 17:37] LABS: BASOPHILS % (AUTO) 1 % (0-10); EOSINOPHILS % (AUTO) 1 % (0-10); HEMATOCRIT 33 % (35-52); HEMOGLOBIN 11.7 g/dL (11.5-16.0); LYMPHOCYTES # (AUTO) 0.4 10^3/uL (1.0-4.0); LYMPHOCYTES % (AUTO) 9 % (12-44); MEAN CORPUSCULAR HEMOGLOBIN 31 pg (25-34); MEAN CORPUSCULAR HGB CONC 35 g/dL (32-36); MEAN CORPUSCULAR VOLUME 88 fL (80-99); MONOCYTES # (AUTO) 0.6 10^3/uL (0.0-1.0); MONOCYTES % (AUTO) 13 % (0-12); NEUTROPHILS # (AUTO) 3.7 10^3/uL (1.8-7.8); NEUTROPHILS % (AUTO) 77 % (42-75); PLATELET COUNT 318 10^3/uL (130-400); WHITE BLOOD COUNT 4.8 10^3/uL (4.3-11.0)
[2022-01-24 17:44] LABS: BACTERIA,URINE MODERATE /HPF; RBC,URINE 0-2 /HPF; SQUAMOUS EPITHELIAL CELL,UR 0-2 /HPF; WBC,URINE 0-2 /HPF
[2022-01-24 17:47] LABS: AMPHETAMINE SCREEN, URINE NEGATIVE (NEGATIVE); BARBITURATE SCREEN URINE NEGATIVE (NEGATIVE); BENZODIAZEPINES SCREEN URINE NEGATIVE (NEGATIVE); CANNABINOID SCREEN, URINE NEGATIVE (NEGATIVE); COCAINE SCREEN URINE NEGATIVE (NEGATIVE); METHADONE STAT NEGATIVE (NEGATIVE); OPIATE SCREEN URINE NEGATIVE (NEGATIVE); OXYCODONE STAT NEGATIVE (NEGATIVE); PROPOXYPHENE STAT NEGATIVE (NEGATIVE); TRICYCLIC ANTIDEPRESSANTS SCRE NEGATIVE (NEGATIVE)
[2022-01-24 17:54] LABS: ALBUMIN 3.6 GM/DL (3.2-4.5); CHLORIDE 106 MMOL/L (98-107); POTASSIUM 3.8 MMOL/L (3.6-5.0); SODIUM 137 MMOL/L (135-145)
[2022-01-24 17:55] LABS: CALCIUM 9.2 MG/DL (8.5-10.1)
[2022-01-24 17:56] LABS: GLUCOSE 118 MG/DL (70-105)
[2022-01-24 17:57] LABS: CARBON DIOXIDE 19 MMOL/L (21-32); TOTAL PROTEIN 6.7 GM/DL (6.4-8.2)
[2022-01-24 17:58] LABS: BILIRUBIN,TOTAL 0.4 MG/DL (0.1-1.0)
[2022-01-24 18:00] LABS: ALKALINE PHOSPHATASE 54 U/L (40-136); CREATININE SERUM 0.63 MG/DL (0.60-1.30); GFR ESTIMATED 127
[2022-01-24 18:01] LABS: BUN/CREATININE RATIO 14
[2022-01-24 18:03] LABS: ALANINE AMINOTRANSFERASE 32 U/L (0-55)
[2022-01-24] MEDS ORDERED: ONDANSETRON 4 MG/2 ML (SDV) Z0FRAN IVP ONE (18:30)
--- NOTE | 2022-01-24 18:46 | ED General ---
General Chief Complaint: COVID19 Suspect/Confirmed Stated Complaint: BODY ACHES,AQUINO,DIZZINESS,CONGESTION, Nursing Triage Note: PT AMB TO RM 9 WITH COMPLAINTS OF WEAKNESS, BE LIGHTHEADED, HEADACHE, AND TACHYCARDIA. PT STATES SHE HAS BEEN EXPOSED TO COVID AND IS 28 WEEKS . Source of Information: Patient Exam Limitations: No Limitations History of Present Illness Date Seen by Provider: Jan 24, 2022 Time Seen by Provider: 17:14 Initial Comments Patient to the ER by private conveyance chief complaint of body aches, malaise, tachycardia. She saw Dr. Sinha was told to drink more fluids. She thinks she has COVID because she had a sick contact with COVID-19. She is having some nausea but no vomiting. Chills but no objective fevers. She is 28 weeks . Allergies and Home Medications Allergies Coded Allergies: ceftriaxone (Unverified Allergy, Mild, HIVES, 01/17/10) Patient Home Medication List Home Medication List Reviewed: Yes Amoxicillin (Amoxicillin) 500 Mg Capsule, 500 MG PO TID Prescribed by: TYLER YA on 11/01/191624 Hydrocodone Bit/Acetaminophen (Lortab 5 Mg Tablet) 1 Tab Tab, 1 EACH PO Q6H PRN for PAIN Prescribed by: EVELIN CHRISTOPHER on 01/20/182150 Hydrocodone Bit/Acetaminophen (Lortab 5 Mg Tablet) 1 Tab Tab, 1 EACH PO Q4-6HR PRN for PAIN-MODERATE Prescribed by: EVELIN CHRISTOPHER on 08/04/182108 Metronidazole (Metronidazole) 55 Gm Gel.w.pump, 0.75 % TP HS Prescribed by: TRISTA WORRELL on 09/02/211625 Naproxen (Naprosyn) 500 Mg Tablet, 500 MG PO BID PRN for PAIN-SEVERE (8-10) Prescribed by: TYLER YA on 11/01/19 162 Nitrofurantoin Monohyd/M-Cryst (Macrobid 100 mg Capsule) 100 Mg Capsule, 1 TAB PO BID Prescribed by: EVELIN CHRISTOPHER on 08/04/182108 Ondansetron HCl (Zofran) 4 Mg Tab, 4 MG PO Q4H PRN for NAUSEA/VOMITING Prescribed by: EVELIN CHRISTOPHER on 08/04/182108 Penicillin V Potassium (Penicillin V Potassium) 500 Mg Tablet, 500 MG PO Q6H Prescribed by: YANCY GARCIA on 05/01/202312 Sulfamethoxazole/Trimethoprim (Bactrim Ds Tablet) 1 Each Tablet, 1 EACH PO BID Prescribed by: EVELIN CHRISTOPHER on 01/20/182150 Tramadol HCl (Tramadol HCl) 50 Mg Tablet, 50 MG PO Q6H PRN for severe pain Prescribed by: YANCY GARCIA on 05/01/202311 Review of Systems Review of Systems Constitutional: see HPI, chills, malaise EENTM: No ear discharge, No hearing loss, No ear pain Respiratory: see HPI, cough; No short of breath Cardiovascular: No chest pain, No palpitations Gastrointestinal: No abdominal pain, No constipation, No diarrhea; nausea; No vomiting Genitourinary: No discharge, No dysuria All Other Systems Reviewed Negative Unless Noted: Yes Past Vruauyn-Nzmetv-Hufuud Hx Patient Social History Tobacco Use?: No Substance use?: No Alcohol Use?: No Immunizations Up To Date Tetanus Booster (TDap): Less than 5yrs PED Vaccines UTD: No Influenza Vaccine Up-to-Date: No; Not Current Seasonal Allergies Seasonal Allergies: Yes Past Medical History Surgeries: Yes (T&A, MULTIPLE ABSCESS I&D'S, "BLADDER STRETCHED" WHEN YOUNGER) Adenoidectomy, Bladder Surgery, Tonsillectomy Respiratory: No Cardiac: No Neurological: No Female Reproductive Disorders: Denies Genitourinary: Yes UTI-Chronic Gastrointestinal: Yes (Chronic constipation) Chronic Constipation Musculoskeletal: No Endocrine: No Diabetes, Insulin dep HEENT: No Cancer: No Psychosocial: No Integumentary: Yes Blood Disorders: No Physical Exam Vital Signs Vital Signs - First Documented 01/24/22 16:58 Temp 37.2 Pulse 149 Resp 16 B/P (MAP) 134/84 (101) Pulse Ox 97 O2 Delivery Room Air Capillary Refill : Less Than 3 Seconds Height, Weight, BMI Height: 5'5.00" Weight: 200lbs. 0oz. [id number]; 34.00 BMI Method:Stated General Appearance: WD/WN, Anxious, Mild Distress Eyes: Bilateral Eye Normal Inspection, Bilateral Eye PERRL, Bilateral Eye EOMI HEENT: PERRL/EOMI, TMs Normal, Pharynx Normal; No Moist Mucous Membranes Neck: Full Range of Motion, Normal Inspection Respiratory: Lungs Clear, Normal Breath Sounds, No Accessory Muscle Use, No Respiratory Distress Cardiovascular: Regular Rate, Rhythm, No Edema, Tachycardia (150) Gastrointestinal: Normal Bowel Sounds, Non Tender, Soft Extremity: Normal Inspection, Normal Range of Motion Neurologic/Psychiatric: Alert, Oriented x3, No Motor/Sensory Deficits, Normal Mood/Affect Skin: Normal Color, Warm/Dry Progress/Results/Core Measures Suspected Sepsis SIRS Temperature: Pulse: 149 Respiratory Rate: 16 Laboratory Tests 01/24/22 17:14: White Blood Count 4.8 Blood Pressure 134 /84 Mean: 101 Laboratory Tests 01/24/22 17:14: Creatinine 0.63, Platelet Count 318, Total Bilirubin 0.4 Results/Orders Lab Results Laboratory Tests Test 01/24/22 17:07 01/24/22 17:14 01/24/22 17:22 01/24/22 17:23 Range/Units Influenza Type A (RT-PCR) Not Detected Not Detecte Influenza Type B (RT-PCR) Not Detected Not Detecte SARS-CoV-2 RNA (RT-PCR) Detected H Not Detecte White Blood Count 4.8 4.3-11.0 10^3/uL Red Blood Count 3.81 3.80-5.11 10^6/uL Hemoglobin 11.7 11.5-16.0 g/dL Hematocrit 33 L 35-52 % Mean Corpuscular Volume 88 80-99 fL Mean Corpuscular Hemoglobin 31 25-34 pg Mean Corpuscular Hemoglobin Concent 35 32-36 g/dL Red Cell Distribution Width 12.2 10.0-14.5 % Platelet Count 318 130-400 10^3/uL Mean Platelet Volume 9.0 9.0-12.2 fL Immature Granulocyte % (Auto) 0 % Neutrophils (%) (Auto) 77 H 42-75 % Lymphocytes (%) (Auto) 9 L 12-44 % Monocytes (%) (Auto) 13 H 0-12 % Eosinophils (%) (Auto) 1 0-10 % Basophils (%) (Auto) 1 0-10 % Neutrophils # (Auto) 3.7 1.8-7.8 10^3/uL Lymphocytes # (Auto) 0.4 L 1.0-4.0 10^3/uL Monocytes # (Auto) 0.6 0.0-1.0 10^3/uL Eosinophils # (Auto) 0.0 0.0-0.3 10^3/uL Basophils # (Auto) 0.0 0.0-0.1 10^3/uL Immature Granulocyte # (Auto) 0.0 0.0-0.1 10^3/uL Sodium Level 137 135-145 MMOL/L Potassium Level 3.8 3.6-5.0 MMOL/L Chloride Level 106 98-107 MMOL/L Carbon Dioxide Level 19 L 21-32 MMOL/L Anion Gap 12 5-14 MMOL/L Blood Urea Nitrogen 9 7-18 MG/DL Creatinine 0.63 0.60-1.30 MG/DL Estimat Glomerular Filtration Rate 127 BUN/Creatinine Ratio 14 Glucose Level 118 H 70-105 MG/DL Calcium Level 9.2 8.5-10.1 MG/DL Corrected Calcium 9.5 8.5-10.1 MG/DL Total Bilirubin 0.4 0.1-1.0 MG/DL Aspartate Amino Transf (AST/SGOT) 30 5-34 U/L Alanine Aminotransferase (ALT/SGPT) 32 0-55 U/L Alkaline Phosphatase 54 40-136 U/L C-Reactive Protein High Sensitivity 0.74 H 0.00-0.50 MG/DL Total Protein 6.7 6.4-8.2 GM/DL Albumin 3.6 3.2-4.5 GM/DL Serum Alcohol < 10 <10 MG/DL Urine Color YELLOW Urine Clarity CLEAR Urine pH 6.0 5-9 Urine Specific [place] >=1.030 1.016-1.022 Urine Protein NEGATIVE NEGATIVE Urine Glucose (UA) NEGATIVE NEGATIVE Urine Ketones NEGATIVE NEGATIVE Urine Nitrite NEGATIVE NEGATIVE Urine Bilirubin NEGATIVE NEGATIVE Urine Urobilinogen 1.0 < = 1.0 MG/DL Urine Leukocyte Esterase NEGATIVE NEGATIVE Urine RBC (Auto) NEGATIVE NEGATIVE Urine RBC 0-2 /HPF Urine WBC 0-2 /HPF Urine Squamous Epithelial Cells 0-2 /HPF Urine Renal Epithelial Cells NONE /HPF Urine Crystals NONE /LPF Urine Bacteria MODERATE H /HPF Urine Casts NONE /LPF Urine Mucus NEGATIVE /LPF Urine Culture Indicated YES Urine Opiates Screen NEGATIVE NEGATIVE Urine Oxycodone Screen NEGATIVE NEGATIVE Urine Methadone Screen NEGATIVE NEGATIVE Urine Propoxyphene Screen NEGATIVE NEGATIVE Urine Barbiturates Screen NEGATIVE NEGATIVE Ur Tricyclic Antidepressants Screen NEGATIVE NEGATIVE Urine Phencyclidine Screen NEGATIVE NEGATIVE Urine Amphetamines Screen NEGATIVE NEGATIVE Urine Methamphetamines Screen NEGATIVE NEGATIVE Urine Benzodiazepines Screen NEGATIVE NEGATIVE Urine Cocaine Screen NEGATIVE NEGATIVE Urine Cannabinoids Screen NEGATIVE NEGATIVE Glucometer 117 H 70-110 MG/DL Test 01/24/22 17:24 Range/Units Total Creatine Kinase 20 L 29-168 U/L My Orders Orders - LEROY ZIMMER Continuous Ekg Monitoring (01/24/22 17:14) Ekg Tracing (01/24/22 17:14) Ed Iv/Invasive Line Start (01/24/22 17:14) Ns Iv 1000 Ml (Sodium Chloride 0.9%) (01/24/22 17:15) Cbc With Automated Diff (01/24/22 17:14) Comprehensive Metabolic Panel (01/24/22 17:14) Hs C Reactive Protein (01/24/22 17:14) Ua Culture If Indicated (01/24/22 17:14) Urine Bedside (01/24/22 17:14) Drug Screen Stat (Urine) (01/24/22 17:14) Alcohol (01/24/22 17:14) Accucheck Stat ONCE (01/24/22 17:16) Ekg Tracing (01/24/22 17:16) Urine Culture (01/24/22 17:22) Ondansetron Injection (Zofran Injectio (01/24/22 18:30) Acetaminophen Tablet (Tylenol Tablet) (01/24/22 19:00) Lactated Ringers (Lr 1000 Ml Iv Solution (01/24/22 19:00) Creatine Kinase (01/24/22 18:49) Medications Given in ED Current Medications Medications Dose Ordered Sig/Meghna Route Start Time Stop Time Status Last Admin Dose Admin Acetaminophen 1,000 mg ONCE ONCE PO 01/24/22 19:00 01/24/22 19:01 DC 01/24/22 18:51 1,000 MG Ondansetron HCl 4 mg ONCE ONCE IVP 01/24/22 18:30 01/24/22 18:31 DC 01/24/22 18:35 4 MG Vital Signs/I&O 01/24/22 16:58 Temp 37.2 Pulse 149 Resp 16 B/P (MAP) 134/84 (101) Pulse Ox 97 O2 Delivery Room Air Capillary Refill : Less Than 3 Seconds Blood Pressure Mean: 101 Point of Care Testing Finger Stick Blood Glucose: 117 Blood Glucose Action Taken: RN NOTIFIED Progress Note : Time: 18:52 Progress Note They have a liter fluid bolus and started to slow her heart rate down. Appears to be sinus on EKG. Will give Tylenol and Zofran for her symptoms. COVID is positive. Appears to be sinus tachycardia. We did discuss risks, benefits and alternatives to the use of Paxlovid for women. She would like to consult with Dr. Carrington before she considers taking it. If after her second liter of fluids and Tylenol she is feeling better than there may not be significant benefit to be had. Will pass care of the case over to Dr. Wahl. ECG Initial ECG Impression Date: Jan 24, 2022 Initial ECG Impression Time: 17:18 Initial ECG Rate: 153 Initial ECG Rhythm: S.Tach Initial ECG Intervals: Normal Initial ECG Impression: Normal Comment Sinus tachycardia without clinically relevant ST changes. Departure Communication (Admissions) Time/Spoke to Admitting Phy: 19:35 Discussed the case with Dr. Sinha who agrees with treatment plan thus far and would recommend observation, metoprolol 50 mg tartrate for heart rate over 140 every 12 hours. If she still tachycardic in the morning he will consider consultation to cardiology. IV fluids 1-1/2 times maintenance Impression Primary Impression: COVID-19 Additional Impressions: Tachycardia Dehydration Disposition: ADMITTED INPATIENT Condition: Stable Admissions Decision to Admit Reason: Admit from ER (General) Decision to Admit/Date: Jan 24, 2022 Time/Decision to Admit Time: 19:41 Departure-Patient Inst. Referrals: SHANIA SINHA MD (PCP/Family) Primary Care Physician LEROY ZIMMER Jan 24, 2022 18:46
[2022-01-24] MEDS ORDERED: LACTATED RINGERS 1,000 ML IV SCH (19:00)
[2022-01-24] MEDS ORDERED: ACETAMINOPHEN 500 MG TAB (TYLENOL) PO ONE (19:00)
[2022-01-24] MEDS ORDERED: meTOprolol TARTRATE 50 MG (LOPRESSOR) TAB PO ONE (20:00)
[2022-01-24 21:01] VITALS: BP 134/84
[2022-01-24] MEDS ORDERED: RT-ALBUTEROL SULF 2.5 MG/3 ML PRE-MIX VIAL INH PRN (21:15)
[2022-01-24 21:27] VITALS: BP 96/61
[2022-01-24] MEDS ORDERED: ACETAMINOPHEN 500 MG TAB (TYLENOL) PO PRN (22:00)
[2022-01-24] MEDS ORDERED: ONDANSETRON 4 MG/2 ML (SDV) Z0FRAN IV PRN (22:00)
[2022-01-24] MEDS ORDERED: PROMETHAZINE INJ 25 MG/ML (PHENERGAN) AMP IVP PRN (22:00)
[2022-01-24] MEDS ORDERED: meTOprolol TARTRATE 50 MG (LOPRESSOR) TAB PO PRN (22:00)
[2022-01-25 00:30] VITALS: BP 102/60
[2022-01-25] MEDS: LACTATED RINGERS 1,000 ML IV SCH ×3 (01:49→08:20)
[2022-01-25 03:28] VITALS: BP 94/57
[2022-01-25 06:04] LABS: BASOPHILS % (AUTO) 1 % (0-10); EOSINOPHILS % (AUTO) 1 % (0-10); HEMATOCRIT 28 % (35-52); HEMOGLOBIN 9.7 g/dL (11.5-16.0); LYMPHOCYTES # (AUTO) 0.5 10^3/uL (1.0-4.0); LYMPHOCYTES % (AUTO) 21 % (12-44); MEAN CORPUSCULAR HEMOGLOBIN 31 pg (25-34); MEAN CORPUSCULAR HGB CONC 34 g/dL (32-36); MEAN CORPUSCULAR VOLUME 90 fL (80-99); MONOCYTES # (AUTO) 0.4 10^3/uL (0.0-1.0); MONOCYTES % (AUTO) 19 % (0-12); NEUTROPHILS # (AUTO) 1.3 10^3/uL (1.8-7.8); NEUTROPHILS % (AUTO) 58 % (42-75); PLATELET COUNT 245 10^3/uL (130-400); WHITE BLOOD COUNT 2.2 10^3/uL (4.3-11.0)
[2022-01-25 06:41] LABS: CALCIUM 8.4 MG/DL (8.5-10.1)
[2022-01-25 06:46] LABS: CREATININE SERUM 0.64 MG/DL (0.60-1.30)
[2022-01-25 07:50] VITALS: BP 102/66
--- NOTE | 2022-01-25 08:13 | History & Physical ---
HPI History of Present Illness: 22-year-old 1 para 0 currently at 28 weeks gestation who presents to ED following malaise and fatigue as well as a low-grade fever. Ultimately she was determined to have Covid 19 infection along with dehydration. She had started feeling poorly within the last 48 hours. She admitted to occasionally a cough b ut also had some airway congestion and slight rhinitis. Her care is essentially been complicated by diabetes. She is also on insulin provided through perinatology in [facility]. Source: patient Exam Limitations: no limitations Date seen by provider: Jan 25, 2022 Time Seen by Provider: 07:15 Attending Physician Shania Sinha MD PCP Admitting Physician: Shania Sinha MD Attending Physician: Shania Sinha MD Consult Date of Admission Jan 24, 2022 at 20:00 Home Medications Home Medications Reviewed patient Home Medication Reconciliation performed by pharmacy medication reconciliations cnc technician and/or nursing. Patients Allergies have been reviewed. Allergies Coded Allergies: ceftriaxone (Unverified Allergy, Mild, HIVES, 01/17/10) CUE-Sefkrm-Miiifb Hx Patient Social History Marrital Status: single Smoking Status: Former Smoker 2nd Hand Smoke Exposure: Yes Recent Hopitalizations: No Alcohol Use?: No Have you traveled recently?: No Immunizations Up To Date Tetanus Booster (TDap): Less than 5yrs Influenza Vaccine Up-to-Date: No; Not Current Review of Systems ([facility]) Constitutional: see HPI Reviewed Test Results Reviewed Test Results Lab Laboratory Tests Test 01/24/22 17:07 01/24/22 17:14 01/24/22 17:22 01/24/22 17:23 Range/Units Influenza Type A (RT-PCR) Not Detected Not Detecte Influenza Type B (RT-PCR) Not Detected Not Detecte SARS-CoV-2 RNA (RT-PCR) Detected H Not Detecte White Blood Count 4.8 4.3-11.0 10^3/uL Red Blood Count 3.81 3.80-5.11 10^6/uL Hemoglobin 11.7 11.5-16.0 g/dL Hematocrit 33 L 35-52 % Mean Corpuscular Volume 88 80-99 fL Mean Corpuscular Hemoglobin 31 25-34 pg Mean Corpuscular Hemoglobin Concent 35 32-36 g/dL Red Cell Distribution Width 12.2 10.0-14.5 % Platelet Count 318 130-400 10^3/uL Mean Platelet Volume 9.0 9.0-12.2 fL Immature Granulocyte % (Auto) 0 % Neutrophils (%) (Auto) 77 H 42-75 % Lymphocytes (%) (Auto) 9 L 12-44 % Monocytes (%) (Auto) 13 H 0-12 % Eosinophils (%) (Auto) 1 0-10 % Basophils (%) (Auto) 1 0-10 % Neutrophils # (Auto) 3.7 1.8-7.8 10^3/uL Lymphocytes # (Auto) 0.4 L 1.0-4.0 10^3/uL Monocytes # (Auto) 0.6 0.0-1.0 10^3/uL Eosinophils # (Auto) 0.0 0.0-0.3 10^3/uL Basophils # (Auto) 0.0 0.0-0.1 10^3/uL Immature Granulocyte # (Auto) 0.0 0.0-0.1 10^3/uL Sodium Level 137 135-145 MMOL/L Potassium Level 3.8 3.6-5.0 MMOL/L Chloride Level 106 98-107 MMOL/L Carbon Dioxide Level 19 L 21-32 MMOL/L Anion Gap 12 5-14 MMOL/L Blood Urea Nitrogen 9 7-18 MG/DL Creatinine 0.63 0.60-1.30 MG/DL Estimat Glomerular Filtration Rate 127 BUN/Creatinine Ratio 14 Glucose Level 118 H 70-105 MG/DL Calcium Level 9.2 8.5-10.1 MG/DL Corrected Calcium 9.5 8.5-10.1 MG/DL Total Bilirubin 0.4 0.1-1.0 MG/DL Aspartate Amino Transf (AST/SGOT) 30 5-34 U/L Alanine Aminotransferase (ALT/SGPT) 32 0-55 U/L Alkaline Phosphatase 54 40-136 U/L C-Reactive Protein High Sensitivity 0.74 H 0.00-0.50 MG/DL Total Protein 6.7 6.4-8.2 GM/DL Albumin 3.6 3.2-4.5 GM/DL Serum Alcohol < 10 <10 MG/DL Urine Color YELLOW Urine Clarity CLEAR Urine pH 6.0 5-9 Urine Specific [place] >=1.030 1.016-1.022 Urine Protein NEGATIVE NEGATIVE Urine Glucose (UA) NEGATIVE NEGATIVE Urine Ketones NEGATIVE NEGATIVE Urine Nitrite NEGATIVE NEGATIVE Urine Bilirubin NEGATIVE NEGATIVE Urine Urobilinogen 1.0 < = 1.0 MG/DL Urine Leukocyte Esterase NEGATIVE NEGATIVE Urine RBC (Auto) NEGATIVE NEGATIVE Urine RBC 0-2 /HPF Urine WBC 0-2 /HPF Urine Squamous Epithelial Cells 0-2 /HPF Urine Renal Epithelial Cells NONE /HPF Urine Crystals NONE /LPF Urine Bacteria MODERATE H /HPF Urine Casts NONE /LPF Urine Mucus NEGATIVE /LPF Urine Culture Indicated YES Urine Opiates Screen NEGATIVE NEGATIVE Urine Oxycodone Screen NEGATIVE NEGATIVE Urine Methadone Screen NEGATIVE NEGATIVE Urine Propoxyphene Screen NEGATIVE NEGATIVE Urine Barbiturates Screen NEGATIVE NEGATIVE Ur Tricyclic Antidepressants Screen NEGATIVE NEGATIVE Urine Phencyclidine Screen NEGATIVE NEGATIVE Urine Amphetamines Screen NEGATIVE NEGATIVE Urine Methamphetamines Screen NEGATIVE NEGATIVE Urine Benzodiazepines Screen NEGATIVE NEGATIVE Urine Cocaine Screen NEGATIVE NEGATIVE Urine Cannabinoids Screen NEGATIVE NEGATIVE Glucometer 117 H 70-110 MG/DL Test 01/24/22 17:24 01/25/22 05:54 Range/Units Total Creatine Kinase 20 L 29-168 U/L White Blood Count 2.2 L 4.3-11.0 10^3/uL Red Blood Count 3.14 L 3.80-5.11 10^6/uL Hemoglobin 9.7 L 11.5-16.0 g/dL Hematocrit 28 L 35-52 % Mean Corpuscular Volume 90 80-99 fL Mean Corpuscular Hemoglobin 31 25-34 pg Mean Corpuscular Hemoglobin Concent 34 32-36 g/dL Red Cell Distribution Width 12.4 10.0-14.5 % Platelet Count 245 130-400 10^3/uL Mean Platelet Volume 9.0 9.0-12.2 fL Immature Granulocyte % (Auto) 1 % Neutrophils (%) (Auto) 58 42-75 % Lymphocytes (%) (Auto) 21 12-44 % Monocytes (%) (Auto) 19 H 0-12 % Eosinophils (%) (Auto) 1 0-10 % Basophils (%) (Auto) 1 0-10 % Neutrophils # (Auto) 1.3 L 1.8-7.8 10^3/uL Lymphocytes # (Auto) 0.5 L 1.0-4.0 10^3/uL Monocytes # (Auto) 0.4 0.0-1.0 10^3/uL Eosinophils # (Auto) 0.0 0.0-0.3 10^3/uL Basophils # (Auto) 0.0 0.0-0.1 10^3/uL Immature Granulocyte # (Auto) 0.0 0.0-0.1 10^3/uL Sodium Level 130 L 135-145 MMOL/L Potassium Level 4.0 3.6-5.0 MMOL/L Chloride Level 103 98-107 MMOL/L Carbon Dioxide Level 21 21-32 MMOL/L Anion Gap 6 5-14 MMOL/L Blood Urea Nitrogen 8 7-18 MG/DL Creatinine 0.64 0.60-1.30 MG/DL Estimat Glomerular Filtration Rate 126 BUN/Creatinine Ratio 13 Glucose Level 90 70-105 MG/DL Calcium Level 8.4 L 8.5-10.1 MG/DL Physical Exam-([facility]) Physical Exam Vital Signs VS - Last 72 Hours, by Label 01/24/22 01/24/22 01/24/22 01/24/22 16:58 20:46 21:01 21:15 Temp 37.2 37.2 Pulse 149 138 149 Resp 16 20 B/P (MAP) 134/84 (101) 132/87 Pulse Ox 97 95 97 97 O2 Delivery Room Air Room Air Room Air FiO2 21 01/24/22 01/24/22 01/25/22 01/25/22 21:21 21:27 00:30 01:00 Temp 36.1 37.7 Pulse 106 98 119 118 Resp 18 18 B/P (MAP) 96/61 (73) 102/60 (74) Pulse Ox 97 98 O2 Delivery Room Air Room Air 01/25/22 01/25/22 01/25/22 03:28 07:01 07:50 Temp 37.6 36.9 Pulse 116 118 116 Resp 18 18 B/P (MAP) 94/57 (69) 102/66 (78) Pulse Ox 96 96 O2 Delivery Room Air Room Air Capillary Refill : Less Than 3 Seconds General Appearance: no apparent distress Eyes: Bilateral Eye Normal Inspection HEENT: pharynx normal Neck: supple Respiratory: lungs clear Cardiovascular: tachycardia (on admission but otherwise regular) Gastrointestinal: soft, other (positive heart tones) Assessment/Plan Assessment/Plan Admission Dx 1. Dehydration 2. Covid 19 3. Tachycardia secondary to #1 4. Diabetes in at 28 weeks requiring insulin Admission Status: Observation Reason for Inpatient Admission: further IV fluids as well as monitoring of tachycardia Assessment & Plan 1. Dehydration -she has received bolus IV fluids in the ED -She will be on floor receiving initially 200 cc per hour written through the emergency department 2. Covid 19 -She does not appear to be critical with regards to her symptomatology. Therefore no IV viral medications were recommended at this time. 3. Tachycardia secondary to #1 -Will continue to monitor. She will have a when necessary metoprolol 25 mg for heart rate above 140. 4. Diabetes in at 28 weeks requiring insulin - heart tone checked per shift SHANIA SINHA MD Jan 25, 2022 08:13
[2022-01-25 11:04] VITALS: BP 98/63
[2022-01-25] MEDS ORDERED: METF-397 PO (11:17)
[2022-01-25] MEDS ORDERED: FERR-84 PO (11:17)
[2022-01-25] MEDS ORDERED: NPH,100V SC (11:17)
[2022-01-25] MEDS ORDERED: PNV1TABL94 PO (11:17)
[2022-01-25] MEDS ORDERED: NPH,100V SQ (11:17)
--- NOTE | 2022-01-25 11:35 | Discharge Inst-Simple/Standard ---
Discharge Inst-Standard Reconcile Patient Problems Problems Reviewed?: Yes Discharge Medications New, Converted or Re-Newed RX: Other (no meds called in) Patient Instructions/Follow Up Plan of Care/Instructions/FU: Dr Sinha Feb 01, 2022 Activity as Tolerated: Yes Discharge Diet: ADA Diet Return to The Hospital For: dizziness, fast heart rate, fever not resolving SHANIA SINHA MD Jan 25, 2022 11:34
[2022-01-25 13:35] VITALS: BP 98/63
== END 2022-01-25 13:30 | disposition home or self-care (01) ==
LOC: EDUNIT# 16:43 → ER 16:48 → 4TH 20:00
PROVIDERS: ADMIT Family Medicine; ATTEND Family Medicine
DX: O24.913 Unspecified diabetes mellitus in pregnancy, third trimester (principal); O98.513 Other viral diseases complicating pregnancy, third trimester; U07.1 COVID-19; O26.893 Other specified pregnancy related conditions, third trimester; R00.0 Tachycardia, unspecified; O99.283 Endocrine, nutritional and metabolic diseases complicating pregnancy, third trimester; E86.0 Dehydration; Z79.899 Other long term (current) drug therapy; Z87.891 Personal history of nicotine dependence
CPT/HCPCS: 36415; 80048; 80053; 80306; 80320; 81000; 82550; 82947; 84703; 85025; 86141; 87088; 87636; 93005; G0378

== ENCOUNTER 2022-02-07 19:42 | Outpatient (CLI) | payer MEDICAID ==
[~2022-02-07] VITALS: Ht 165.1 cm; Wt 100.7 kg
[~2022-02-07 19:42] MED LIST changes: +FERR-84 PO; +METF-397 PO; +NPH,100V SC; +NPH,100V SQ; +PNV1TABL94 PO
[2022-02-07 20:05] LABS: BILIRUBIN,URINE NEGATIVE (NEGATIVE); CLARITY,URINE CLEAR; COLOR,URINE YELLOW; GLUCOSE, URINE (UA) NEGATIVE (NEGATIVE); KETONES,URINE NEGATIVE (NEGATIVE); LEUKOCYTE ESTERASE ,URINE NEGATIVE (NEGATIVE); NITRITE,URINE NEGATIVE (NEGATIVE); PROTEIN,URINE NEGATIVE (NEGATIVE)
[2022-02-07 20:08] VITALS: BP 118/63
[2022-02-07 20:13] VITALS: BP 118/63
[2022-02-07 20:18] LABS: BACTERIA,URINE FEW /HPF; SQUAMOUS EPITHELIAL CELL,UR 0-2 /HPF; WBC,URINE 0-2 /HPF
[2022-02-07 20:26] VITALS: BP 118/62
--- NOTE | 2022-02-08 07:50 | Physician Query-Final Dx ---
EMMANUEL02/08/22 0750: Clinic Account Progress/Dx Physician Query: Please give diagnosis Please include # weeks gestation Date of Service Feb 07, 2022 at 19:42 LISA BRUNO DO 02/09/22 1346: Clinic Account Progress/Dx DIAGNOSIS: Diagnosis 31 week GA decreased movement (resolved); reassuring heart tones EMMANUEL,MayFeb 08, 2022 07:50 LISA BRUNO DO Feb 09, 2022 13:46
== END 2022-02-07 20:40 ==
LOC: WSo 19:42 → LDRP 19:42 → WSo 20:40
PROVIDERS: ATTEND Family Medicine
DX: O26.899 Other specified pregnancy related conditions, unspecified trimester (principal); R10.9 Unspecified abdominal pain; Z3A.00 Weeks of gestation of pregnancy not specified
CPT/HCPCS: 81000; 82947; 87088; 99212

== ENCOUNTER 2022-02-25 09:45 | Outpatient (CLI) | payer MEDICAID ==
[~2022-02-25] VITALS: Ht 167.7 cm; Wt 101.6 kg
[2022-02-25 10:31] LABS: BILIRUBIN,URINE NEGATIVE (NEGATIVE); CLARITY,URINE CLEAR; COLOR,URINE YELLOW; GLUCOSE, URINE (UA) NEGATIVE (NEGATIVE); KETONES,URINE NEGATIVE (NEGATIVE); LEUKOCYTE ESTERASE ,URINE NEGATIVE (NEGATIVE); NITRITE,URINE NEGATIVE (NEGATIVE); PROTEIN,URINE NEGATIVE (NEGATIVE)
[2022-02-25 10:39] LABS: BACTERIA,URINE FEW /HPF; SQUAMOUS EPITHELIAL CELL,UR 0-2 /HPF; WBC,URINE 0-2 /HPF
[2022-02-25 10:46] VITALS: BP 113/66
== END 2022-02-25 12:40 | disposition home or self-care (01) ==
LOC: WSo 09:45 → LDRP 09:45 → WSo 12:40
PROVIDERS: ATTEND Family Medicine
DX: O36.8190 Decreased fetal movements, unspecified trimester, not applicable or unspecified (principal); Z3A.00 Weeks of gestation of pregnancy not specified
CPT/HCPCS: 81000; 87088; 99213

== ENCOUNTER 2022-03-03 14:39 | Outpatient (CLI) | payer MEDICAID ==
[~2022-03-03] VITALS: Ht 66 cm; Wt 102.1 kg
[2022-03-03 15:06] VITALS: BP 119/73
--- NOTE | 2022-03-06 08:32 | Physician Query-Final Dx ---
Clinic Account Progress/Dx Physician Query: Please give diagnosis Please include # weeks gestation Date of Service Mar 03, 2022 at 14:39 ,MayMar 06, 2022 08:31
== END 2022-03-03 15:06 ==
LOC: LDRP 14:39 → WSo 14:39
PROVIDERS: ATTEND Family Medicine
DX: Z36.83 Encounter for fetal screening for congenital cardiac abnormalities (principal); Z3A.33 33 weeks gestation of pregnancy
CPT/HCPCS: 59025

== ENCOUNTER 2022-03-23 15:34 | Outpatient (CLI) | payer MEDICAID ==
[2022-03-23 15:30] VITALS: BP 90/55
[2022-03-23 15:55] VITALS: BP 90/55
== END 2022-03-23 16:10 ==
LOC: WSo 15:34 → LDRP 15:36 → WSo 16:10
PROVIDERS: ATTEND Family Medicine
DX: O24.913 Unspecified diabetes mellitus in pregnancy, third trimester (principal); Z3A.00 Weeks of gestation of pregnancy not specified
CPT/HCPCS: 59025

== ENCOUNTER 2022-03-27 19:05 | Inpatient (IN) | payer MEDICAID ==
[~2022-03-27] VITALS: Ht 166 cm; Wt 106.7 kg
[2022-03-27 19:22] VITALS: BP 129/78
[2022-03-27] MEDS ORDERED: TERBUTALINE INJ 1 MG/ML (BRETHINE) AMP SC PRN (20:00)
[2022-03-27] MEDS ORDERED: NS IV 1000 ML 1,000 ML IV SCH (20:00)
[2022-03-27] MEDS ORDERED: NS IV 1000 ML 1,000 ML ONE ×2 (20:10→21:14)
[2022-03-27 20:11] LABS: BASOPHILS # (AUTO) 0.1 10^3/uL (0.0-0.1); BASOPHILS % (AUTO) 1 % (0-10); EOSINOPHILS # (AUTO) 0.2 10^3/uL (0.0-0.3); EOSINOPHILS % (AUTO) 2 % (0-10); HEMATOCRIT 33 % (35-52); HEMOGLOBIN 11.2 g/dL (11.5-16.0); LYMPHOCYTES # (AUTO) 3.1 10^3/uL (1.0-4.0); LYMPHOCYTES % (AUTO) 29 % (12-44); MEAN CORPUSCULAR HEMOGLOBIN 30 pg (25-34); MEAN CORPUSCULAR HGB CONC 34 g/dL (32-36); MEAN CORPUSCULAR VOLUME 89 fL (80-99); MEAN PLATELET VOLUME 9.5 fL (9.0-12.2); MONOCYTES # (AUTO) 0.6 10^3/uL (0.0-1.0); MONOCYTES % (AUTO) 6 % (0-12); NEUTROPHILS # (AUTO) 6.7 10^3/uL (1.8-7.8); NEUTROPHILS % (AUTO) 63 % (42-75); PLATELET COUNT 349 10^3/uL (130-400); WHITE BLOOD COUNT 10.6 10^3/uL (4.3-11.0)
[2022-03-27 20:12] LABS: BILIRUBIN,URINE NEGATIVE (NEGATIVE); CLARITY,URINE CLEAR; COLOR,URINE YELLOW; GLUCOSE, URINE (UA) NEGATIVE (NEGATIVE); KETONES,URINE TRACE (NEGATIVE); LEUKOCYTE ESTERASE ,URINE NEGATIVE (NEGATIVE); NITRITE,URINE NEGATIVE (NEGATIVE); PH,URINE 5.5 (5-9); PROTEIN,URINE NEGATIVE (NEGATIVE)
[2022-03-27 20:18] LABS: BACTERIA,URINE MODERATE /HPF; CALCIUM OXALATE CRYSTALS,UR LARGE /LPF
[2022-03-27] MEDS: NS IV 1000 ML 1,000 ML IV SCH (21:16)
[2022-03-27] MEDS ORDERED: CATHETER FLUSH 10 ML SYR IV SCH (22:00)
[2022-03-27 23:42] VITALS: BP 122/73
[2022-03-28] VITALS (67 sets, daily range): BP systolic 78–161; BP diastolic 45–124
[2022-03-28] MEDS ORDERED: ZOLPIDEM 5 MG (AMBIEN) TAB PO ONE
[2022-03-28] MEDS: BUTORPHANOL INJ 2 MG/ML (STADOL) VIAL IV PRN ×2 (02:04→05:00)
[2022-03-28] MEDS: NS IV 1000 ML 1,000 ML IV SCH ×3 (04:21→20:31)
[2022-03-28] MEDS ORDERED: FLU QUADRIvalent (6 months+) 60 mcg/0.5 ml 2022-23 (Fluzone) IM ONE (06:45)
[2022-03-28] MEDS ORDERED: OXYTOCIN PRE-MIX DRIP 500 ML IV SCH ×3 (07:30→23:00)
--- NOTE | 2022-03-28 07:55 | History & Physical-OB ---
OB - Chief Complaint & HPI Date/Time Date of Admission: Date of Admission: Mar 27, 2022 at 19:05 Date seen by a Provider: Mar 28, 2022 Time Seen by a Provider: 06:30 Chief Complaint/History OB-Reason for Admission/Chief: Induction of Labor Hx : 1 Hx Para: 0 Expected Date of Delivery: Apr 17, 2022 Gestational Age in Weeks: 37 Gestational Age in Days: 1 Indication for induction: other (Insulin dependent diabetic) Admission Nurse Assessment Rev: Yes History of Labs GBS negative Allergies and Home Medications Allergies Coded Allergies: ceftriaxone (Verified Allergy, Mild, HIVES, 03/27/22) Patient Home Medication List Home Medication List Reviewed: Yes Ferrous Sulfate (Iron) 325 Mg (65 Mg Iron) Tablet, 325 MG PO DAILY, (Reported) Entered as Reported by: TORRI MEJIA on 01/25/221116 Last Action: Continued Insulin NPH Human Isophane (Humulin N) 100 Unit/Ml Vial, 44 UNITS SC DAILY, (Reported) Entered as Reported by: TORRI MEJIA on 01/25/221116 Last Action: Held Insulin NPH Human Isophane (Humulin N) 100 Unit/Ml Vial, 34 UNIT SQ HS, (Reported) Entered as Reported by: TORRI MEJIA on 01/25/221116 Last Action: Held Metformin HCl (Metformin HCl) 500 Mg Tablet, 1,000 MG PO BID, (Reported) Entered as Reported by: TORRI MEJIA on 01/25/221116 Last Action: Continued Pnv No.121/Iron/Folic Acid ( Multivitamin Tablet) 28 Mg Iron-800 Mcg Tablet, 1 EACH PO DAILY, (Reported) Entered as Reported by: TORRI MEJIA on 01/25/221116 Last Action: Reviewed OB - History Hx of Present Care: Yes Ultrasounds: Normal mid trimester US Obstetrical Complications: Gestational Diabetes (on insulin) Medical Complications: Other (Diabetes) Delivery History Hx Blood Disorders: No Patient Past Medical History Diabetes in Social History/Family History 2nd Hand Smoke Exposure: Yes Immunizations Influenza Vaccine Up-to-Date: No; Not Current Hepatitis A: Yes Hepatitis B: Yes Tetanus Booster (TDap): Less than 5yrs Date of Pneumonia Vaccine: May 27, 2012 OB - Admission Exam Physical Exam Vitals: Vital Signs 03/28/22 04:30 Temp 36.1 Pulse 101 Resp 18 B/P (MAP) 129/76 (93) Pulse Ox 99 O2 Delivery Room Air HEENT: Moist Membranes Heart: Rhythm Normal Lungs: Clear Abdomen: Gravid Extremities: Normal Reflexes: Normal Cervical Dilatation: 1cm Effacement: 50% Station: -3 Membranes: Intact Heart Rate: 140's Accelerations: Accelerations Present Short Term Variability: Present Mcc Variability: Average (6-25) Contractions on Admission: >10 Minutes Apart (on admit) Intensity: Mild Goyal Scoring Tool (Modified) Dilation (cm): 1-2cm (1) Effacement (%): 31-51% (1) Descent/Station: -3 (0) Cervix Consistency: Medium(1) Cervix Position: Posterior (0) Subtract 1 point for: Nulliparity (-1) Goyal Score: 2 Labs Laboratory Tests Test 03/27/22 19:45 03/28/22 06:50 Range/Units White Blood Count 10.6 4.3-11.0 10^3/uL Red Blood Count 3.70 L 3.80-5.11 10^6/uL Hemoglobin 11.2 L 11.5-16.0 g/dL Hematocrit 33 L 35-52 % Mean Corpuscular Volume 89 80-99 fL Mean Corpuscular Hemoglobin 30 25-34 pg Mean Corpuscular Hemoglobin Concent 34 32-36 g/dL Red Cell Distribution Width 13.0 10.0-14.5 % Platelet Count 349 130-400 10^3/uL Mean Platelet Volume 9.5 9.0-12.2 fL Immature Granulocyte % (Auto) 0 % Neutrophils (%) (Auto) 63 42-75 % Lymphocytes (%) (Auto) 29 12-44 % Monocytes (%) (Auto) 6 0-12 % Eosinophils (%) (Auto) 2 0-10 % Basophils (%) (Auto) 1 0-10 % Neutrophils # (Auto) 6.7 1.8-7.8 10^3/uL Lymphocytes # (Auto) 3.1 1.0-4.0 10^3/uL Monocytes # (Auto) 0.6 0.0-1.0 10^3/uL Eosinophils # (Auto) 0.2 0.0-0.3 10^3/uL Basophils # (Auto) 0.1 0.0-0.1 10^3/uL Immature Granulocyte # (Auto) 0.0 0.0-0.1 10^3/uL Urine Color YELLOW Urine Clarity CLEAR Urine pH 5.5 5-9 Urine Specific [place] >=1.030 1.016-1.022 Urine Protein NEGATIVE NEGATIVE Urine Glucose (UA) NEGATIVE NEGATIVE Urine Ketones TRACE H NEGATIVE Urine Nitrite NEGATIVE NEGATIVE Urine Bilirubin NEGATIVE NEGATIVE Urine Urobilinogen 1.0 < = 1.0 MG/DL Urine Leukocyte Esterase NEGATIVE NEGATIVE Urine RBC (Auto) NEGATIVE NEGATIVE Urine RBC NONE /HPF Urine WBC 2-5 /HPF Urine Squamous Epithelial Cells NONE /HPF Urine Renal Epithelial Cells NONE /HPF Urine Crystals PRESENT H /LPF Urine Calcium Oxalate Crystals LARGE H /LPF Urine Bacteria MODERATE H /HPF Urine Casts NONE /LPF Urine Mucus NEGATIVE /LPF Urine Culture Indicated YES Glucose Level 134 H 70-105 MG/DL Glucometer 58 *L 70-110 MG/DL OB - Assessment/Plan/Diagnosis Assessment Assessment: induction of labor (due to insulin dependent diabetic at term 37 weeks) Admission Dx 1. IUP at 37 weeks with insulin dependent diabetes Admission Status: Inpatient Order (span 2 midnights) Reason for Inpatient Admission: Induction of labor Plan Plan: Induction Induction Method: per Misoprostol Protocol Other Plan -Monitor glucose q4 hr while in labor -induction by cytotec and AROM in am of 03/28 SHANIA SINHA MD Mar 28, 2022 07:55
[2022-03-28] MEDS ORDERED: fentaNYL 2 mcg/ml BUPIVA 0.125 100 ML ONE (08:24)
[2022-03-28] MEDS ORDERED: fentaNYL INJ 100 MCG/2 ML AMP ONE (09:00)
[2022-03-28] MEDS ORDERED: BUPIVACAINE 0.25% 30 ML (SENSORCAINE) VIAL ONE (09:00)
[2022-03-28] MEDS ORDERED: diphenhydrAMINE 50 MG/ML INJ (BENADRYL) IV PRN (09:45)
[2022-03-28] MEDS ORDERED: LACTATED RINGERS 1,000 ML IV SCH (09:45)
[2022-03-28] MEDS ORDERED: NALOXONE 0.4 MG/ML 1 ML (NARCAN) VIAL IV PRN ×2 (09:45→23:00)
[2022-03-28] MEDS ORDERED: ONDANSETRON 4 MG/2 ML (SDV) Z0FRAN IV PRN (09:45)
[2022-03-28] MEDS ORDERED: fentaNYL 2 mcg/ml BUPIVA 0.125 100 ML EPI SCH (09:45)
[2022-03-28] MEDS ORDERED: NS IV 1000 ML 1,000 ML ONE (12:21)
[2022-03-28] MEDS ORDERED: MEASLES,MUMPS,RUBELLA 1 EA INJ SQ ONE (23:00)
[2022-03-28] MEDS ORDERED: TETANUS,DIPTH,PERTUSS P/F (BOOSTRIX) 0.5 ML VIAL IM ONE (23:00)
--- NOTE | 2022-03-28 23:02 | OB Labor & Delivery Record ---
L&D History Date of Service Date of Service: Mar 28, 2022 History Expected Date of Delivery: Apr 17, 2022 Gestational Age in Weeks: 37 Hx : 1 Hx Para: 1 Complications Events: Gestational Diabetes (with insulin depent) Operative Indications (Cesarea: N/A-Vaginal Delivery Intrapartal Events: None L&D Stage1 Stage One Onset of Labor - Date: Mar 28, 2022 Onset of Labor - Time: 06:30 Monitors and Tracing Monitor Mode: Internal Heart Rate: 135 Monitor Accelerations: Uniform Monitor Decelerations: Early Station: -1 Graphics Specialist Variability: Average (6-10) Short Term Variability: Present Presentation: Vertex Vital Signs VS - Last 72 Hours, by Label 03/27/22 03/27/22 03/28/22 03/28/22 19:22 23:42 04:30 08:00 Temp 35.9 36.3 36.1 36.2 Pulse 123 104 101 114 Resp 20 20 18 18 B/P (MAP) 122/73 (89) 129/76 (93) 120/64 (82) Pulse Ox 98 99 99 97 O2 Delivery Room Air Room Air Room Air Room Air 03/28/22 03/28/22 03/28/22 03/28/22 08:16 08:32 08:45 09:00 Pulse 78 101 101 112 Resp 18 18 18 18 B/P (MAP) 112/66 (81) 115/56 (75) 113/56 (75) 116/63 (80) Pulse Ox 98 97 97 97 O2 Delivery Room Air Room Air Room Air Room Air 03/28/22 03/28/22 03/28/22 03/28/22 09:15 09:20 09:25 09:30 Pulse 131 118 123 131 Resp 18 18 18 18 B/P (MAP) 141/80 (100) 152/85 (107) 148/84 (105) 141/80 (100) Pulse Ox 97 98 98 97 O2 Delivery Room Air Room Air Room Air Room Air 03/28/22 03/28/22 03/28/22 03/28/22 09:35 09:40 09:45 09:50 Temp 36.3 Pulse 114 106 95 98 Resp 18 18 18 18 B/P (MAP) 132/58 (82) 120/60 (80) 126/69 (88) 129/75 (93) Pulse Ox 97 97 97 97 O2 Delivery Room Air Room Air Room Air Room Air 03/28/22 03/28/22 03/28/22 03/28/22 09:55 10:00 10:05 10:10 Pulse 96 98 104 88 Resp 18 18 18 18 B/P (MAP) 117/70 (86) 121/73 (89) 122/76 (91) 125/74 (91) Pulse Ox 97 97 99 99 O2 Delivery Room Air Room Air Room Air Room Air 03/28/22 03/28/22 03/28/22 03/28/22 10:15 10:20 10:30 10:45 Pulse 89 98 92 98 Resp 18 18 18 18 B/P (MAP) 130/69 (89) 120/69 (86) 124/75 (91) 119/68 (85) Pulse Ox 99 98 99 99 O2 Delivery Room Air Room Air Room Air Room Air 03/28/22 03/28/22 03/28/22 03/28/22 11:00 11:15 11:35 11:55 Temp 36.3 Pulse 87 100 89 94 Resp 18 18 18 18 B/P (MAP) 122/73 (89) 115/70 (85) 118/62 (80) 115/74 (88) Pulse Ox 98 98 98 99 O2 Delivery Room Air Room Air Room Air Room Air 03/28/22 03/28/22 03/28/22 03/28/22 12:07 12:20 12:38 12:52 Pulse 90 94 91 89 Resp 18 18 18 18 B/P (MAP) 117/74 (88) 115/69 (84) 115/69 (84) 109/68 (82) Pulse Ox 98 98 98 99 O2 Delivery Room Air Room Air Room Air Room Air 03/28/22 03/28/22 03/28/22 03/28/22 13:10 13:20 13:52 14:06 Pulse 85 96 88 88 Resp 18 18 18 18 B/P (MAP) 103/62 (76) 102/60 (74) 115/69 (84) 111/58 (75) Pulse Ox 99 98 97 97 O2 Delivery Room Air Room Air Room Air Room Air 03/28/22 03/28/22 03/28/22 03/28/22 14:22 14:35 14:50 15:05 Temp 36.6 Pulse 90 86 93 97 Resp 18 18 18 18 B/P (MAP) 109/66 (80) 109/62 (78) 116/70 (85) 111/68 (82) Pulse Ox 97 99 96 97 O2 Delivery Room Air Room Air Room Air Room Air 03/28/22 03/28/22 03/28/22 03/28/22 15:20 15:36 15:51 16:05 Temp 36.8 Pulse 103 112 107 107 Resp 18 18 18 18 B/P (MAP) 107/69 (82) 110/63 (79) 109/63 (78) 110/56 (74) Pulse Ox 98 97 97 98 O2 Delivery Room Air Room Air Room Air Room Air 03/28/22 03/28/22 03/28/22 03/28/22 16:20 16:35 16:52 17:00 Pulse 91 96 89 83 Resp 18 18 18 18 B/P (MAP) 93/54 (67) 99/54 (69) 78/45 (56) 115/63 (80) Pulse Ox 97 97 97 100 O2 Delivery Room Air Room Air Room Air Non Rebreather O2 Flow Rate 15.00 03/28/22 03/28/22 03/28/22 03/28/22 17:07 17:23 17:35 17:53 Pulse 83 96 86 110 Resp 18 18 18 18 B/P (MAP) 91/54 (66) 114/91 (99) 103/58 (73) 120/71 (87) Pulse Ox 100 97 98 97 O2 Delivery Non Rebreather Room Air Room Air Room Air O2 Flow Rate 15.00 03/28/22 03/28/22 03/28/22 03/28/22 18:08 18:22 18:38 18:54 Temp 36.8 Pulse 86 108 109 102 Resp 18 18 18 18 B/P (MAP) 118/68 (85) 127/71 (89) 149/66 (93) 118/67 (84) Pulse Ox 98 98 98 98 O2 Delivery Room Air Room Air Room Air Room Air 03/28/22 03/28/22 03/28/22 03/28/22 19:06 19:21 19:36 19:53 Temp 37.0 Pulse 105 97 99 102 Resp 20 20 18 B/P (MAP) 122/68 (86) 110/61 (77) 110/57 (74) 142/108 (119) Pulse Ox 98 98 97 O2 Delivery Room Air Room Air Room Air 03/28/22 03/28/22 20:07 21:35 Pulse 105 105 Resp 18 20 B/P (MAP) 161/124 (136) 109/55 (73) Pulse Ox 97 O2 Delivery Room Air Room Air Signs of Distress by FHT Signs of Distress no Rupture of Membranes Spontaneous Ruture of Membrane: No Amniotic Membrane Rupture Time: 0632 Amniotic Membrane Fluid Desc.: Clear Vaginal Bleeding Description: None Induction/Anesthesia Epidural Cath Placement - Time: 929 L&D Stage2 Stage Two Stage II Date: Mar 28, 2022 Stage II Time: 21:01 Monitors and Tracing Monitor Mode: Internal Heart Rate: 135 Monitor Accelerations: Uniform Monitor Decelerations: Early Retirement Variability: Average (6-10) Short Term Variability: Present Position: Left Occiput Anterior Presentation: Vertex Signs of Distress by FHT Signs of Distress no Cord Descript/Complications Cord Vessel Description: 3 Vessels Delivery Type Delivery Method: Spontaneous Vaginal Anterior Shoulder: Left Episiotomy/Perineal Laceration Laceraction(s)/Extensions: No Episiotomy Description: None Sutures Used: Vicryl Degree (describe repair) 1 stitch R labial minora at 9 oclock Condition of Delivery 1 minute Comment: 7 5 minute Comment: 9 Condition of Infant Condition of Infant: Living Exam: No Observed Abnormalities Resuscitation Resuscitation: N/A - Spontaneous Resp L&D Stage3 Stage Three Stage III Date: Mar 28, 2022 Stage III Time: 21:07 Pictocin Pitocin Administration mu/min: 22 Pitocin ml/hr: 22 Placenta Delivery Placenta Delivery: Spontaneous Delivery Summary Summary Estimated blood loss (mL): 200 Condition of Delivery Examined: Cervix Examined Post Hemorrhage: No Intervention Required none SHANIA SINHA MD Mar 28, 2022 23:02
[2022-03-29] MEDS: WITCH HAZEL(TUCKS) 40 EA JAR TOP PRN (01:09)
[2022-03-29] MEDS: IBUPROFEN 600 MG (MOTRIN) TAB PO SCH ×4 (01:10→18:39)
[2022-03-29] MEDS: ACETAMINOPHEN 500 MG TAB (TYLENOL) PO SCH ×4 (01:10→18:39)
[2022-03-29] MEDS: BENZOCAINE/MENTHOL (DERMOPLAST) 56 ML CAN TP PRN (01:10)
[2022-03-29 05:05] VITALS: BP 92/54
[2022-03-29] MEDS ORDERED: CATHETER FLUSH 10 ML SYR IV SCH (06:00)
[2022-03-29 06:15] LABS: BASOPHILS # (AUTO) 0.1 10^3/uL (0.0-0.1); BASOPHILS % (AUTO) 0 % (0-10); EOSINOPHILS # (AUTO) 0.1 10^3/uL (0.0-0.3); EOSINOPHILS % (AUTO) 1 % (0-10); HEMATOCRIT 30 % (35-52); LYMPHOCYTES # (AUTO) 2.1 10^3/uL (1.0-4.0); LYMPHOCYTES % (AUTO) 16 % (12-44); MEAN CORPUSCULAR HEMOGLOBIN 30 pg (25-34); MEAN CORPUSCULAR HGB CONC 34 g/dL (32-36); MEAN CORPUSCULAR VOLUME 90 fL (80-99); MEAN PLATELET VOLUME 9.6 fL (9.0-12.2); MONOCYTES # (AUTO) 0.8 10^3/uL (0.0-1.0); MONOCYTES % (AUTO) 6 % (0-12); NEUTROPHILS # (AUTO) 10.3 10^3/uL (1.8-7.8); NEUTROPHILS % (AUTO) 77 % (42-75); PLATELET COUNT 299 10^3/uL (130-400); WHITE BLOOD COUNT 13.4 10^3/uL (4.3-11.0)
--- NOTE | 2022-03-29 07:39 | Progress Note ---
Subjective Subjective/Events-last exam No complaints. Body a little sore from delivery but no significant vaginal bleed. Cramping some. Appetite fair. Objective Exam Last Set of Vital Signs Vital Signs Date Time Temp Pulse Resp B/P (MAP) Pulse Ox O2 Delivery O2 Flow Rate FiO2 03/29/22 05:05 36.0 79 18 92/54 (67) 97 Room Air 03/28/22 17:07 15.00 Capillary Refill : Less Than 3 Seconds I&O Intake and Output 03/29/22 00:00 Intake Total 4895 ml Balance 4895 ml Intake IV Total 4895 ml Blood Loss Quantification Method 200 ml General: No Acute Distress Neck: Supple Lungs: Clear to Auscultation Heart: Regular Rate Abdomen: Soft (with uterus firm) Results/Procedures Lab Laboratory Tests 03/28/22 08:32: Glucometer 69L 03/28/22 12:03: Glucometer 65L 03/28/22 18:00: Glucometer 61L 03/29/22 05:22: White Blood Count 13.4H, Red Blood Count 3.32L, Hemoglobin 10.0L, Hematocrit 30L , Mean Corpuscular Volume 90, Mean Corpuscular Hemoglobin 30, Mean Corpuscular Hemoglobin Concent 34, Red Cell Distribution Width 13.2, Platelet Count 299, Mean Platelet Volume 9.6, Immature Granulocyte % (Auto) 0, Neutrophils (%) (Auto) 77H, Lymphocytes (%) (Auto) 16, Monocytes (%) (Auto) 6, Eosinophils (%) (Auto) 1, Basophils (%) (Auto) 0, Neutrophils # (Auto) 10.3H, Lymphocytes # (Auto) 2.1, Monocytes # (Auto) 0.8, Eosinophils # (Auto) 0.1, Basophils # (Auto) 0.1, Immature Granulocyte # (Auto) 0.1, Glucose Level 80 Microbiology 03/27/22 Urine Culture - Preliminary, Resulted Culture In Progress Assessment/Plan Assessment/Plan Admission Dx 1. IUP at term 37wk now delivered 2. Insulin dependent diabetic during Admission Status: Inpatient Order (span 2 midnights) Assessment & Plan 1. IUP at term 37wk now delivered -routine PP care orders -home in am of 03/30 2. Insulin dependent diabetic during -glucose monitored -plan on restarting her Jardiance most likely tomorrow SHANIA SINHA MD Mar 29, 2022 07:39
[2022-03-29] MEDS: DOCUSATE SODIUM 100 MG (COLACE) CAP PO SCH ×2 (09:17→20:03)
[2022-03-29] MEDS: metFORMIN 500 MG (GLUCOPHAGE) TAB PO SCH ×2 (09:17→18:40)
[2022-03-29] MEDS: PRENATAL VITAMIN 1 EA TAB PO SCH (09:17)
[2022-03-29] MEDS: FERROUS SULF 325 MG (IRON) TAB PO SCH (09:17)
[2022-03-29 09:19] VITALS: BP 119/62
[2022-03-29 12:52] VITALS: BP 110/64
--- NOTE | 2022-03-29 15:16 | Anesthesia-Regional Post-Op ---
Regional Patient Condition Mental Status: Alert, Oriented x3 Circulation: Same as Pre-Op Headache: Absent Sensation: Full Recovery Motor Block: Absent Post Op Complications Complications None Follow Up Care/Instructions Patient Instructions None needed. Anesthesia/Patient Condition Patient is doing well, no complaints, stable vital signs, no apparent adverse anesthesia problems. No complications reported per nursing. ANNAMARIA JUNG DO Mar 29, 2022 15:16
[2022-03-29 17:50] VITALS: BP 94/51
[2022-03-29 20:03] VITALS: BP 106/62
[2022-03-30] MEDS: IBUPROFEN 600 MG (MOTRIN) TAB PO SCH ×3 (03:50→10:42)
[2022-03-30] MEDS: ACETAMINOPHEN 500 MG TAB (TYLENOL) PO SCH ×3 (03:50→10:42)
[2022-03-30 03:53] VITALS: BP 92/50
[2022-03-30] MEDS ORDERED: IBUP-844 PO (07:56)
[2022-03-30] MEDS ORDERED: EMPA10TA PO (07:56)
--- NOTE | 2022-03-30 07:57 | Discharge Inst-Women's Service ---
Discharge Inst-Women's Serv Depart Medication/Instructions New, Converted or Re-Newed RX: Transmitted to Pharmacy ([facility]) Problems Reviewed?: Yes Consults/Follow Up Additional Follow Up: Yes (Dr Sinha in 6 weeks) Activity Driving Instructions: No Driving for 1 Week Nothing Inside Vagina: No [place] (for 6 weeks) Diet Discharge Diet: ADA Diet Return to The Hospital For: as below Symptoms to Report to : Bleeding Excessive, Fever Over 101 Degrees F, Vaginal Discharge Foul For Any Problems or Questions: Contact Your Physician SHANIA SINHA MD Mar 30, 2022 07:57
--- NOTE | 2022-03-30 08:04 | Discharge Summary ---
Diagnosis/Chief Complaint Date of Admission Mar 27, 2022 at 19:05 Date of Discharge March 30, 2022 Admission Diagnosis Admission Diagnosis 1. Intrauterine at 37 weeks gestation 2. Maternal diabetes on insulin Discharge Diagnosis 1. Intrauterine at 37 weeks gestation 2. Maternal diabetes on insulin Chief Complaint/HPI Chief Complaint/HPI 22-year-old 1 now term 1 who presented to women's services during the evening of March 27 for induction of labor. She has been followed by myself as well as through [facility]. She was followed by perinatology due to history of diabetes prior to . She was started on insulin by the perinatologist and followed pretty much weekly in the third trimester with ultrasound and insulin adjustments. She was noted to have decreased movement but had reassuring strip and biophysical profile the month prior to delivery. She was induced due to her complications as stated. She was at 37 weeks gestation upon induction. Her EDC is April 17, 2022 GBS status at 36 weeks was noted to be negative. Discharge Summary-OBS Procedures 1. Epidural per anesthesia 2. Spontaneous vaginal delivery 3. Repair of very minor introital tear at the 9 o'clock position Discharge Physical Examination Allergies: Coded Allergies: ceftriaxone (Verified Allergy, Mild, HIVES, 03/27/22) Vitals & I&Os Vital Sign - Last 12Hours Date Time Temp Pulse Resp B/P (MAP) Pulse Ox O2 Delivery O2 Flow Rate FiO2 03/30/22 03:53 36.3 80 18 92/50 (64) 98 Room Air 03/28/22 17:07 15.00 General Appearance: No Acute Distress HEENT: Atraumatic Respiratory: Clear to Auscultation Cardiovascular: Regular Rate Abdominal: Normal Bowel Sounds, Soft (with uterus firm) Neuro: Normal Gait, Normal Speech Hospital Course Was the Problem List Reviewed?: Yes patient was admitted during the evening of March 27, 2022 for induction of labor. She underwent Cytotec cervical ripening. She tolerated well and was not ed to have a contraction pattern by the multiskill operator of March 28, 2022. She underwent amniotomy with placement of scalp electrode. She continued to contract requiring Pitocin augmentation. Regarding her diabetes she had normal saline used as fluids and her glucose was checked every 4 hours and noted to be under 100. She ultimately went on to deliver a term viable female at 2101 on March 28, 2022. Infant received Apgars of 7 at 1 minute and 9 at 5 minutes. Following delivery she underwent routine care orders. She was not given any insulin during the course of her stay and her glucose values were averaging below 100. She did not have any fever, excessive vaginal bleeding, or excessive uterine cramping during the course of her stay. She did complain of some minor leg pain but this was felt due to her extended pushing and thighs flexed. Her hemoglobin the morning of March 29 was 10.0 compared to admission of 11.2. She tolerated regular diabetic diet and was felt ready for dismissal to home in the morning of March 30, 2022. She will follow-up with myself in 6 weeks at [facility]. Labs Microbiology 03/27/22 Urine Culture - Final, Complete Gram Pos Mixed Bacterial Angie Discharge Instructions to patient/family Please see electronic discharge instructions given to patient. Discharge Medications Reviewed and agree with Discharge Medication list on patient's Discharge Instruction sheet SHANIA SINHA MD Mar 30, 2022 08:04
[2022-03-30] MEDS ORDERED: FLU QUADRIvalent (6 months+) 60 mcg/0.5 ml 2022-23 (Fluzone) IM ONE ×2 (09:16→10:36)
[2022-03-30] MEDS: metFORMIN 500 MG (GLUCOPHAGE) TAB PO SCH (10:39)
[2022-03-30] MEDS: FERROUS SULF 325 MG (IRON) TAB PO SCH (10:39)
[2022-03-30] MEDS: PRENATAL VITAMIN 1 EA TAB PO SCH (10:39)
[2022-03-30] MEDS: DOCUSATE SODIUM 100 MG (COLACE) CAP PO SCH (10:39)
[2022-03-30 10:45] VITALS: BP 126/75
[2022-03-30] MEDS: WITCH HAZEL(TUCKS) 40 EA JAR TOP PRN (10:52)
[2022-03-30] MEDS: BENZOCAINE/MENTHOL (DERMOPLAST) 56 ML CAN TP PRN (10:53)
== END 2022-03-30 11:30 | disposition home or self-care (01) | DRG 807 ==
LOC: LDRP 19:05
PROVIDERS: ADMIT Family Medicine; ATTEND Family Medicine
PROC: 10E0XZZ Delivery of Products of Conception, External Approach (ICD-10-PCS; principal; 2022-03-28)
PROC: 0UQMXZZ Repair Vulva, External Approach (ICD-10-PCS; 2022-03-28)
PROC: 10907ZC Drainage of Amniotic Fluid, Therapeutic from Products of Conception, Via Natural or Artificial Opening (ICD-10-PCS; 2022-03-28)
DX: O24.424 Gestational diabetes mellitus in childbirth, insulin controlled (principal); Z37.0 Single live birth; Z3A.37 37 weeks gestation of pregnancy; Z79.4 Long term (current) use of insulin; Z79.82 Long term (current) use of aspirin; O70.0 First degree perineal laceration during delivery
CPT/HCPCS: 36415; 81000; 82947; 85025; 86780; 86850; 86900; 86901; 87088; 90686

== ENCOUNTER 2022-04-05 12:50 | Emergency (ER) | payer MEDICAID ==
[~2022-04-05] VITALS: Ht 165.1 cm; Wt 95.3 kg
[~2022-04-05 12:50] MED LIST changes: +EMPA10TA PO; +IBUP-844 PO
[2022-04-05 13:52] LABS: CLARITY,URINE CLEAR; COLOR,URINE YELLOW; GLUCOSE, URINE (UA) 3+ (NEGATIVE); KETONES,URINE NEGATIVE (NEGATIVE); LEUKOCYTE ESTERASE ,URINE TRACE (NEGATIVE); NITRITE,URINE POSITIVE (NEGATIVE); PH,URINE 5.5 (5-9); PROTEIN,URINE 2+ (NEGATIVE)
[2022-04-05 13:54] LABS: BASOPHILS # (AUTO) 0.1 10^3/uL (0.0-0.1); BASOPHILS % (AUTO) 1 % (0-10); EOSINOPHILS # (AUTO) 0.3 10^3/uL (0.0-0.3); EOSINOPHILS % (AUTO) 4 % (0-10); HEMATOCRIT 38 % (35-52); HEMOGLOBIN 12.7 g/dL (11.5-16.0); LYMPHOCYTES # (AUTO) 3.2 10^3/uL (1.0-4.0); LYMPHOCYTES % (AUTO) 46 % (12-44); MEAN CORPUSCULAR HEMOGLOBIN 30 pg (25-34); MEAN CORPUSCULAR HGB CONC 34 g/dL (32-36); MEAN CORPUSCULAR VOLUME 88 fL (80-99); MEAN PLATELET VOLUME 8.6 fL (9.0-12.2); MONOCYTES # (AUTO) 0.5 10^3/uL (0.0-1.0); MONOCYTES % (AUTO) 7 % (0-12); NEUTROPHILS % (AUTO) 43 % (42-75); PLATELET COUNT 517 10^3/uL (130-400)
[2022-04-05 13:58] LABS: POTASSIUM 4.2 MMOL/L (3.6-5.0)
[2022-04-05 13:59] LABS: CALCIUM 9.6 MG/DL (8.5-10.1)
[2022-04-05 14:01] LABS: TOTAL PROTEIN 7.5 GM/DL (6.4-8.2)
[2022-04-05 14:02] LABS: BILIRUBIN,TOTAL 0.4 MG/DL (0.1-1.0)
[2022-04-05 14:04] LABS: BACTERIA,URINE TRACE /HPF; BILIRUBIN,URINE 1+ (NEGATIVE); RBC,URINE TNTC /HPF
[2022-04-05 14:04] LABS: CREATININE SERUM 0.82 MG/DL (0.60-1.30)
--- NOTE | 2022-04-05 14:08 | Diagnostic Imaging Report ---
Indication: Abdominal pain Abdominal film obtained 2:09 hours p.m. and compared to 10/13/2015. There is prominent stool throughout the colon. There is no overt obstruction or ileus. There is no significant small bowel distention. There are no visualized abdominal calcifications. Impression: Prominent stool throughout the colon with no overt obstruction or ileus. Dictated by: Dictated on workstation # [id number]
[2022-04-05] MEDS ORDERED: POLY119P5 PO ×2 (14:50→14:51)
--- NOTE | 2022-04-05 14:51 | ED Abdominal Pain ---
General Chief Complaint: (<6 weeks) Stated Complaint: 1 WEEK POST- ABD PAIN Nursing Triage Note: PT AMB TO TRIAGE W C/O SEVERE SHARP RLQ PAIN THAT RADIATES UP THROUGH ABD SX YESTERDAY. VAGINAL DELIVERY ON 03/28/[address] SINHA, PT DENIES COMPLICATIONS DURING AND DELIVERY. PT A&OX4. Source of Information: Patient Exam Limitations: No Limitations History of Present Illness Date Seen by Provider: Apr 05, 2022 Time Seen by Provider: 13:33 Initial Comments This 22-year-old young lady is 7 days and complains of a right lower quadrant pain. Pain has been generalized but more focused on the right lower quadrant. This pain is a notable increase from her pain up until yesterday. It is worse with movement. She had a normal vaginal delivery without complications except minor tear. She denies fever, nausea, vomiting, or diarrhea. She has not had a bowel movement in 3 days. Her lochia has been decr easing and is brownish-red. She denies fever or urinary changes. She had been using stool softeners until her stools became overly soft 3 days ago. She then stopped the stool softeners and has had no more bowel movements. Her obstetrical provider is Dr. Sinha. Her PCP is Angelica Triplett. She took ibuprofen at home and pain has improved significantly since arriving here. Allergies and Home Medications Allergies Coded Allergies: ceftriaxone (Verified Allergy, Mild, HIVES, 03/27/22) Patient Home Medication List Home Medication List Reviewed: Yes Empagliflozin (Jardiance) 10 Mg Tablet, 10 MG PO DAILY Prescribed by: SHANIA SINHA on 03/30/22 0756 Ferrous Sulfate (Iron) 325 Mg (65 Mg Iron) Tablet, 325 MG PO DAILY, (Reported) Entered as Reported by: TORRI MEJIA on 01/25/22 1117 Ibuprofen (Ibu) 600 Mg Tablet, 600 MG PO Q6H Prescribed by: SHANIA SINHA on 03/30/22 0756 Metformin HCl (Metformin HCl) 500 Mg Tablet, 1,000 MG PO BID, (Reported) Entered as Reported by: TORRI MEJIA on 01/25/22 1117 Pnv No.121/Iron/Folic Acid ( Multivitamin Tablet) 28 Mg Iron-800 Mcg Tablet, 1 EACH PO DAILY, (Reported) Entered as Reported by: TORRI MEJIA on 01/25/22 111 Polyethylene Glycol 3350 (Miralax) 17 Gram/Dose Powder, 17 GM PO TID PRN for CO NSTIPATION-1ST LINE Prescribed by: ELEANOR GURROLA on 04/05/22 1451 Discontinued Medications Insulin NPH Human Isophane (Humulin N) 100 Unit/Ml Vial, 44 UNITS SC DAILY, (Reported) Entered as Reported by: TORRI MEJIA on 01/25/22 111 Insulin NPH Human Isophane (Humulin N) 100 Unit/Ml Vial, 34 UNIT SQ HS, (Reported) Entered as Reported by: TORRI MEJIA on 01/25/22 111 Review of Systems Review of Systems Constitutional: no symptoms reported EENTM: No Symptoms Reported Respiratory: No Symptoms Reported Cardiovascular: No Symptoms Reported Gastrointestinal: See HPI Genitourinary: See HPI Musculoskeletal: no symptoms reported Skin: no symptoms reported Psychiatric/Neurological: No Symptoms Reported Endocrine: No Symptoms Reported Hematologic/Lymphatic: No Symptoms Reported Past Fbaddha-Eciorn-Lvagil Hx Patient Social History Tobacco Use?: No Use of E-Cig and/or Vaping dev: Yes E-Cig or Vaping type used: Nicotine Use of E-Cig and/or Vaping Kyle: Current Everyday User Substance use?: No Alcohol Use?: No Immunizations Up To Date Tetanus Booster (TDap): Less than 5yrs PED Vaccines UTD: No Influenza Vaccine Up-to-Date: Yes; Up-to-Date First/Initial COVID19 Vaccinat: NONE Second COVID19 Vaccination Michael: NONE Third COVID19 Vaccination Date: NONE COVID19 Vaccine Gaming Director: NONE Seasonal Allergies Seasonal Allergies: Yes Past Medical History Surgeries: Yes (T&A, MULTIPLE ABSCESS I&D'S, "BLADDER STRETCHED" WHEN YOUNGER) Adenoidectomy, Bladder Surgery, Tonsillectomy Respiratory: No Cardiac: No Neurological: No Female Reproductive Disorders: Denies Genitourinary: Yes UTI-Chronic Gastrointestinal: Yes (Chronic constipation) Chronic Constipation Musculoskeletal: No Endocrine: Yes (Use insulin during ) Diabetes, Non-Insulin dep HEENT: No Cancer: No Psychosocial: No Integumentary: Yes Blood Disorders: No Physical Exam Vital Signs Vital Signs - First Documented 04/05/22 12:55 Temp 36.3 Pulse 106 Resp 20 B/P (MAP) 112/76 (88) Pulse Ox 98 O2 Delivery Room Air Capillary Refill : Less Than 3 Seconds Height/Weight/BMI Height: 5'5.00" Weight: 200lbs. 0oz. [id number]; 34.00 BMI Method:Stated General Appearance: WD/WN, no apparent distress HEENT: normal ENT inspection Neck: normal inspection Respiratory: lungs clear, normal breath sounds, no respiratory distress Cardiovascular: regular rate, rhythm, no edema, no murmur Gastrointestinal: normal bowel sounds, soft; No distended, No guarding, No rebound; tenderness (Minimal in the right lower quadrant) Extremities: normal inspection, no pedal edema Neurologic/Psychiatric: no motor/sensory deficits, alert, normal mood/affect, oriented x 3 Skin: normal color, warm/dry Progress/Results/Core Measures Results/Orders Lab Results Laboratory Tests Test 04/05/22 13:08 04/05/22 13:47 Range/Units White Blood Count 7.0 4.3-11.0 10^3/uL Red Blood Count 4.29 3.80-5.11 10^6/uL Hemoglobin 12.7 11.5-16.0 g/dL Hematocrit 38 35-52 % Mean Corpuscular Volume 88 80-99 fL Mean Corpuscular Hemoglobin 30 25-34 pg Mean Corpuscular Hemoglobin Concent 34 32-36 g/dL Red Cell Distribution Width 12.8 10.0-14.5 % Platelet Count 517 H 130-400 10^3/uL Mean Platelet Volume 8.6 L 9.0-12.2 fL Immature Granulocyte % (Auto) 0 % Neutrophils (%) (Auto) 43 42-75 % Lymphocytes (%) (Auto) 46 H 12-44 % Monocytes (%) (Auto) 7 0-12 % Eosinophils (%) (Auto) 4 0-10 % Basophils (%) (Auto) 1 0-10 % Neutrophils # (Auto) 3.0 1.8-7.8 10^3/uL Lymphocytes # (Auto) 3.2 1.0-4.0 10^3/uL Monocytes # (Auto) 0.5 0.0-1.0 10^3/uL Eosinophils # (Auto) 0.3 0.0-0.3 10^3/uL Basophils # (Auto) 0.1 0.0-0.1 10^3/uL Immature Granulocyte # (Auto) 0.0 0.0-0.1 10^3/uL Sodium Level 138 135-145 MMOL/L Potassium Level 4.2 3.6-5.0 MMOL/L Chloride Level 105 98-107 MMOL/L Carbon Dioxide Level 20 L 21-32 MMOL/L Anion Gap 13 5-14 MMOL/L Blood Urea Nitrogen 20 H 7-18 MG/DL Creatinine 0.82 0.60-1.30 MG/DL Estimat Glomerular Filtration Rate 102 BUN/Creatinine Ratio 24 Glucose Level 111 H 70-105 MG/DL Calcium Level 9.6 8.5-10.1 MG/DL Corrected Calcium 9.6 8.5-10.1 MG/DL Total Bilirubin 0.4 0.1-1.0 MG/DL Aspartate Amino Transf (AST/SGOT) 18 5-34 U/L Alanine Aminotransferase (ALT/SGPT) 20 0-55 U/L Alkaline Phosphatase 78 40-136 U/L C-Reactive Protein High Sensitivity 1.07 H 0.00-0.50 MG/DL Total Protein 7.5 6.4-8.2 GM/DL Albumin 4.0 3.2-4.5 GM/DL Urine Color YELLOW Urine Clarity CLEAR Urine pH 5.5 5-9 Urine Specific Campbell >=1.030 1.016-1.022 Urine Protein 2+ H NEGATIVE Urine Glucose (UA) 3+ H NEGATIVE Urine Ketones NEGATIVE NEGATIVE Urine Nitrite POSITIVE H NEGATIVE Urine Bilirubin 1+ H NEGATIVE Urine Urobilinogen 0.2 < = 1.0 MG/DL Urine Leukocyte Esterase TRACE H NEGATIVE Urine RBC (Auto) 3+ H NEGATIVE Urine RBC TNTC H /HPF Urine WBC 5-10 H /HPF Urine Squamous Epithelial Cells 2-5 /HPF Urine Crystals NONE /LPF Urine Bacteria TRACE /HPF Urine Casts NONE /LPF Urine Mucus NEGATIVE /LPF Urine Culture Indicated YES My Orders Orders - ELEANOR STAPLETON MD Cbc With Automated Diff (04/05/22 13:45) Comprehensive Metabolic Panel (04/05/22 13:45) Hs C Reactive Protein (04/05/22 13:45) Ua Culture If Indicated (04/05/22 13:45) Ed Iv/Invasive Line Start (04/05/22 13:45) Abdomen/Kub 1view (04/05/22 13:45) Urine Culture (04/05/22 13:47) Vital Signs/I&O 04/05/22 04/05/22 12:55 14:58 Temp 36.3 Pulse 106 Resp 20 B/P (MAP) 112/76 (88) 107/75 Pulse Ox 98 100 O2 Delivery Room Air Room Air Blood Pressure Mean: 88 Progress Progress Note : Progress Note Abdominal x-ray revealed a notable stool burden. Patient may be developing constipation. Urinalysis did not show a disproportionate amount of bacteria or WBC and a urine specimen likely contaminated by lochia. Patient's pain had improved significantly without any treatment other than her oral ibuprofen. I advised using some MiraLAX to help clear her stool burden. If symptoms do not improve, she may need further evaluation and may need a catheter urine specimen. Diagnostic Imaging Diagonstic Imaging: Xray Plain Films/CT/US/NM/MRI: abdomen, pelvis Comments NAME: [facility] REC#: [id number] PT STATUS: DEP ER : 2000 PHYSICIAN: ELEANOR STAPLETON MD ADMIT DATE: 04/05/22/ER Signed Date of Exam:04/05/22 ABDOMEN/KUB 1VIEW Indication: Abdominal pain Abdominal film obtained 2:09 hours p.m. and compared to 10/13/2015. There is prominent stool throughout the colon. There is no overt obstruction or ileus. There is no significant small bowel distention. There are no visualized abdominal calcifications. Impression: Prominent stool throughout the colon with no overt obstruction or ileus. Dictated by: Dictated on workstation # [id number] Dict: 04/05/226 Trans: 04/05/221954 [facility] [id number] Interpreted by: ELOISA CARDOZA MD Electronically signed by: ELOISA CARDOZA MD 04/05/221954 Departure Impression Primary Impression: Right lower quadrant pain Additional Impression: Constipation Qualified Codes: K59.00 - Constipation, unspecified Disposition: 01 HOME, SELF-CARE Condition: Improved Departure-Patient Inst. Decision time for Depature: 14:48 Referrals: ANGELICA TRIPLETT APRN (PCP) Primary Care Physician [facility]/YEMI (Family) Primary Care Physician Patient Instructions: Abdominal Pain, Adult ED, Constipation, Adult ED Add. Discharge Instructions: The exact cause of your abdominal pain is uncertain at this time but may be related to constipation. Use MiraLAX 2 or 3 times daily until you produce a good bowel movement. Then use as needed. You may use Tylenol (acetaminophen) up to 1000 mg every 6 hours as needed and/or ibuprofen up to 600 mg every 6 hours as needed. Drink plenty of clear liquids to stay well-hydrated and eat a diet high in fiber, fruits, vegetables, and whole grains. Return to the ER if you have worsening symptoms, especially if you develop new symptoms such as vomiting, fever, or severe pain. All discharge instructions reviewed with patient and/or family. Voiced understanding. Scripts Polyethylene Glycol 3350 (Miralax) 17 Gram/Dose Powder 17 GM PO TID PRN for CONSTIPATION-1ST LINE, #1 EA Mix 17 g in 12 ounces clear liquid. Prov: ELEANOR STAPLETON MD 04/05/22 Copy Copies To 1: SHANIA SINHA MD Copies To 2: [facility]/ELEANOR ALLISON MD Apr 05, 2022 14:51
[2022-04-05 14:58] VITALS: BP 107/75
== END 2022-04-05 14:59 | disposition home or self-care (01) ==
LOC: EDUNIT# 12:50 → ER 12:52
DX: O90.89 Other complications of the puerperium, not elsewhere classified (principal); R10.31 Right lower quadrant pain; K59.00 Constipation, unspecified; F17.290 Nicotine dependence, other tobacco product, uncomplicated; Z28.310 Unvaccinated for COVID-19
CPT/HCPCS: 36415; 74018; 80053; 81000; 85025; 86141; 87088